=== PATIENT | female | born 1995 | race Caucasian/White ===

== ENCOUNTER 2022-01-13 08:15 | Outpatient (RCR) | payer OTHER, SELFPAY ==
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
[2022-01-01 15:27] VITALS: BMI 63.5
--- NOTE | 2022-01-02 11:03 | PC.ADMIT ---
Patient is a 26 year old female who self referred to PHP d/t struggling with depression with passive SI. Reports having thoughts that she does not want to wake up. Denied plan or intent to kill herself. Patient also has a history of cutting herself and reports she has not cut herself in a year with the exception of cutting herself a few months ago. Patient reports she has scars on her thighs, legs, and arms as a result. Patient also struggling with symptoms of PTSD and anxiety. Patient stated she recently moved back to this area to live with her sister as she stated she had a toxic relationship with her roommate while living in [place] and her sister asked her to move in with her. Reports her sister, boyfriend, and ex- are all supportive. Patient has been spending much time in bed spending up to 20 hours in bed. Patient reports a history of inpatient hospitalizations. Reports last hospitalized in 2017. Patient also stated history of overdosing on her medications at the end of 2018 and did not tell anyone. Stated that was a stupid thing to do and felt horrible for 4 days as a result. Stated she would never going to do that again. Reports she gave her sister her medications to hold on to as a precaution thus she does not have access to them. Patient denied thoughts or plan to overdose on her medications. Patient is alert and oriented x4. calm and cooperative. Presents with depressed mood and affect. Medications reconciled with patient and patient's pharmacy. She does not have a current script for Topomax-uses for migraines, last filled 08/15/22. Patient also has not been taking Metformin for PCOS on a consistent basis. She does have a pill organizer. Educated patient on ways to remember to take her medications.
--- NOTE | 2022-01-02 15:42 | PC.NURSE ---
Case opened in treatment team.
--- NOTE | 2022-01-06 15:26 | P.PNPSP_ITS ---
Subjective Subjective Date of Service: 01/06/22 Reason For Visit: PTSD,DPD,bipolar,anxiety,depression Guardianship: No Medical Problems Affecting Mental Status: No Interim History: States I'm very tired, I din't sleep well last night . Continues with dysphoric mood. Reports feeling frustrated. Intermittent in SI, states ?it comes and goes ?. No intent or plan, no safety concern at this time. Medication Compliance: Yes Side effects from medications: No Attending Groups: Yes Review of Systems Acute medical concerns: No Medical Review of Systems: unchanged Review of Systems Review of Systems Yes all other systems are reviewed and are negative Constitutional: Reports no additional constitutional complaints Mental Status Exam Mental Status Exam Narrative: Well-developed, overweight female, in NAD. Appears stated age. Patient Appearance: Fatigued and Appropriate Patient Orientation: Person, Place, Time and Situation Level of Consciousness: Awake, Appropriate and Alert Patient Behavior: Appropriate, Cooperative and Good Eye Contact Mood Description: Depressed, Anxious and Labile Affect Description: Depressed and Anxious Patient Cognition Impaired: No Ability to Follow Directions: Good Speech Pattern: Clear, Appropriate and Coherent Memory Description: Intact Hallucinations: None Delusions: Not Present Perceptual Disturbances: Depersonalization and Derealization Thought Process: Intact Thought Content: positive for Intact and positive for Suicidal Ideation (Passive, no intent/plan) Depressive Symptoms: Increased Anxiety, Diff. Making Decisions, Increased Irritability, Difficulty Sleeping, Loss of Int. in Activity, Feelings of Worthlessness, Hopelessness, Isolating-Friends/Family, Unhappiness, Increased Fatigue, Thoughts of /Suicide and Low Self Esteem Judgement: Fair Diagnostics Vital Signs (24Hr): BMI result Body Mass Index 63.5 Assessment & Plan Assessment & Plan (1) Bipolar disorder current episode depressed: Status: Acute Code(s): F31.30 - Bipolar disorder, current episode depressed, mild or moderate severity, unspecified Assessment and Plan: Continues with dysphoric mood. Describes current depression as a hole, I keep going down, but I can see light . Reports feeling frustrated, although feels not as quick to anger. Was arguing with boyfriend over weekend. Reports poor sleep. Intermittent in SI, states ?it comes and goes ?. No intent or plan, no safety concern at this time. Not sure if she wants to continue in [facility], says she has difficulty with group settings. Discussed adding Wellbutrin for depression sx. Does not want it. Says lithium has worked well in past, with Latuda. Discussed adding a low dose lithium for one week, and then reassess. She was agreeable to this. Discussed holding off on Latuda at this time, as she takes quetiapine. She was in agreement with this. (2) LORI (generalized anxiety disorder): Status: Acute Code(s): F41.1 - Generalized anxiety disorder (3) PTSD (post-traumatic stress disorder): Status: Acute Code(s): F43.10 - Post-traumatic stress disorder, unspecified Assessment and Plan: Reports feeling triggered in groups. (4) Borderline personality disorder: Status: Acute Code(s): F60.3 - Borderline personality disorder Plan 1. Continue with current [facility] plan of care. 2. Start lithium 150mg daily. 3. labs ordered: chem profile, TSH, T4. 4. F/u as per protocol. Patient educated on: diagnosis, medication risk/benefits and therapeutic strategies Informed Consent: understands Reason for contiued partial hosp. stay Substantial Risk for: harm to self, inability to function, rapid decompensation and med/psych decompensation Certification I certify that partial hospital treatment is medically necessary due to the symptoms and problems resulting from the patient's mental illness and the failure to treat the patient at the partial hospital level of care would likely result in the patient requiring inpatient psychiatric care which could not be prevented at a less intensive level of care. I spent minutes with the patient and/or on the patient floor today, greater than?50% of which was spent counseling/coordinating care. Discharge Plan Discharge Attending provider: Russ Barnes Medications: New hydroxyzine HCl 50 mg tablet 50 mg PO TID PRN (Reason: anxiety) 14 Days Qty: 42 0RF quetiapine 100 mg tablet 100 mg PO BEDTIME 14 Days Qty: 14 0RF lithium carbonate 150 mg capsule 150 mg PO DAILY Qty: 7 0RF No Action metformin 500 mg Tablet 500 mg PO DAILY 0RF Label Comments: Forgets to take, took few weeks ago. Educated patient on tips to remember to take medications. Rx Instructions: Take in the evening. clonidine HCl 0.1 mg Tablet 0.1 mg PO BID PRN (Reason: Anxiety) 0RF Label Comments: patient stated she takes 2 tabs at HS for sleep PRN oxcarbazepine [Trileptal] 300 mg Tablet 900 mg PO BEDTIME 0RF Label Comments: Patient was taking 1 tab in the am and 2 tabs in the afternoon however change d to bedtime as it was making her too drowsy during the day. PHP prescriber Eileen ENAMEL SHADER aware. Telehealth Telehealth Location of provider rendering services: practice address Location of patient: address on file Patient Identification confirmed using: Name, : Yes Telehealth method: video Patient verbally consented to treatment: Yes Patient verbally consented to billing insurance company: Yes Patient informed of any privacy concerns related to visit: Yes Minutes spent on Phone/Video with Pt.: 20
--- NOTE | 2022-01-06 16:55 | PC.NURSE ---
I called and spoke with pt after she disclosed feeling uncomfortable in groups to the med provider. She said she is not a group person , and that there are 2 women in the group who resemble her mother and stepmother, and that she has noticed feeling anxious when they respond to her. We discussed options of coping with this, and I asked if she wants to continue the PHP. She does want to continue, and has noticed some improvement since starting (less isolated, more social, less sad overall).
--- NOTE | 2022-01-07 14:57 | PC.NURSE ---
I called and spoke to pt. as planned per yesterday's conversation. Reviewed treatment plan in more detail, as we weren't able to complete this yesterday. She said she is in need of a more local therapist and med provider, and cannot afford to see the one she is working with now, who doesn't take her insurance. We discussed options and pt decided on [facility]. We set a tentative discharge date for 01/17/22.
--- NOTE | 2022-01-08 15:41 | PC.NURSE ---
Case opened in treatment team.
--- NOTE | 2022-01-13 10:01 | HO.PHPPROGNO ---
Subjective Subjective Date of Service: 01/13/22 Reason For Visit: PTSD,DPD,bipolar,anxiety,depression Guardianship: No Medical Problems Affecting Mental Status: No Interim History: Feeling overwhelmed with size of group today. Reports Positive affect with lithium, reports improved overall mood. Had self lowered her dose of Trileptal to 600 mg at bedtime, reports this dose is working well for her. Not utilizing hydroxyzine as much, states she has not needed it now that she is taking the lithium. no SI reported, no safety concerns. Medication Compliance: Yes Side effects from medications: No Attending Groups: Yes Review of Systems Acute medical concerns: No Medical Review of Systems: unchanged Review of Systems Review of Systems Yes all other systems are reviewed and are negative Constitutional: Reports no additional constitutional complaints Mental Status Exam Mental Status Exam Narrative: NAD. No active SI/HI/SIB, no AH/VH, no safety concerns. Patient Appearance: Fatigued and Appropriate Patient Orientation: Person, Place, Time and Situation Level of Consciousness: Awake, Appropriate and Alert Patient Behavior: Appropriate, Cooperative and Good Eye Contact Mood Description: Appropriate Affect Description: Flat Patient Cognition Impaired: No Ability to Follow Directions: Good Speech Pattern: Clear, Appropriate and Coherent Memory Description: Intact Hallucinations: None Delusions: Not Present Perceptual Disturbances: Depersonalization Thought Process: Intact Thought Content: positive for Intact and positive for Suicidal Ideation (ongoing passive, no intent/plan. ) Depressive Symptoms: Increased Anxiety, Diff. Making Decisions, Difficulty Sleeping, Loss of Int. in Activity, Unhappiness, Increased Fatigue, Thoughts of /Suicide and Low Self Esteem Judgement: Fair Diagnostics Vital Signs (24Hr): BMI result Body Mass Index 63.5 Assessment & Plan Assessment & Plan (1) Bipolar disorder current episode depressed: Status: Acute Code(s): F31.30 - Bipolar disorder, current episode depressed, mild or moderate severity, unspecified Assessment and Plan: Reports positive affect with lithium. Wishes to remain on current dose. Continues with passive SI, no intent or plan, no active SI/HI/SIB. Patient had reduced her dose of Trileptal from 900 mg daily to 600 mg, wishes to remain on the lower dose. (2) LORI (generalized anxiety disorder): Status: Acute Code(s): F41.1 - Generalized anxiety disorder Assessment and Plan: Patient has not felt need to utilize p.r.n. hydroxyzine as much, since starting the lithium. Overall feeling less anxious. (3) PTSD (post-traumatic stress disorder): Status: Acute Code(s): F43.10 - Post-traumatic stress disorder, unspecified Assessment and Plan: Continues to find Seroquel 100 mg at bedtime helpful. (4) Borderline personality disorder: Status: Acute Code(s): F60.3 - Borderline personality disorder Assessment and Plan: Feeling overwhelmed with size of group today, does not wish to return to group this morning. Requests a phone call from staff. Plan 1. Continue lithium 150 mg daily. 2. Continue Trileptal 600 mg at bedtime. 3. Continue all other medications as prescribed. 4. Follow-up as per protocol. Patient educated on: diagnosis, medication risk/benefits and therapeutic strategies Informed Consent: understands Reason for contiued partial hosp. stay Substantial Risk for: inability to function and med/psych decompensation Certification I certify that partial hospital treatment is medically necessary due to the symptoms and problems resulting from the patient's mental illness and the failure to treat the patient at the partial hospital level of care would likely result in the patient requiring inpatient psychiatric care which could not be prevented at a less intensive level of care. I spent minutes with the patient and/or on the patient floor today, greater than?50% of which was spent counseling/coordinating care. Discharge Plan Discharge Attending provider: Russ Barnes Medications: New hydroxyzine HCl 50 mg tablet 50 mg PO TID PRN (Reason: anxiety) 14 Days Qty: 42 0RF quetiapine 100 mg tablet 100 mg PO BEDTIME 14 Days Qty: 14 0RF lithium carbonate 150 mg capsule 150 mg PO DAILY 30 Days Qty: 30 0RF oxcarbazepine [Trileptal] 600 mg tablet 600 mg PO DAILY 30 Days Qty: 30 0RF Rx Instructions: take one tab daily at bedtime Discontinued oxcarbazepine [Trileptal] 300 mg Tablet 900 mg PO BEDTIME 0RF Label Comments: Patient was taking 1 tab in the am and 2 tabs in the afternoon however changed to bedtime as it was making her too drowsy during the day. PHP prescriber Eileen COLLINS aware. No Action metformin 500 mg Tablet 500 mg PO DAILY 0RF Label Comments: Forgets to take, took few weeks ago. Educated patient on tips to remember to take medications. Rx Instructions: Take in the evening. clonidine HCl 0.1 mg Tablet 0.1 mg PO BID PRN (Reason: Anxiety) 0RF Label Comments: patient stated she takes 2 tabs at HS for sleep PRN Telehealth Telehealth Location of provider rendering services: practice address Location of patient: address on file Patient Identification confirmed using: Name, : Yes Telehealth method: video Patient verbally consented to treatment: Yes Patient verbally consented to billing insurance company: Yes Patient informed of any privacy concerns related to visit: Yes Minutes spent on Phone/Video with Pt.: 15
--- NOTE | 2022-01-14 09:20 | PC.NURSE ---
I called pt after she didn't show to the community meeting. I woke her up- she said she overslept and said she has a very bad migraine and can't attend group today. I let her know that I have received intake times and dates for [facility]. She asked me to call her later in the day and I agreed.
--- NOTE | 2022-01-14 15:30 | PC.NURSE ---
I called and spoke to pt. She shared that she feels a bit better regarding her migraine. She also shared that she has decided not to return to the group program. She said she has gotten a lot out of groups, and feels more stable over all. 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 She said the groups feel too big and that she has a lot of social anxiety. I informed her of intake appts and of follow-up med appt given at [facility]. PHQ-9 was conducted.
== END 2022-01-13 23:59 | disposition home or self-care (01) ==
LOC: HO.PHPA 08:15
PROVIDERS: Visit Provider Psychiatry & Neurology Psychiatry
DX: F31.30 Bipolar disorder, current episode depressed, mild or moderate severity, unspecified (principal); F41.1 Generalized anxiety disorder; F43.10 Post-traumatic stress disorder, unspecified; F60.3 Borderline personality disorder; Z79.899 Other long term (current) drug therapy
CPT/HCPCS: 90791; 90853

== ENCOUNTER 2022-04-16 09:23 | Outpatient (REF) | payer OTHER, SELFPAY ==
[2022-04-16 11:27] LABS: Estimated Glomerular Filt Rate > 60
[2022-04-16 11:32] LABS: Lithium < 0.04 mmol/L (0.60-1.20)
[2022-04-16 11:52] LABS: Thyroid Stimulating Hormone 3.04 uIU/mL (0.32-4.0)
== END 2022-04-16 09:24 | disposition home or self-care (01) ==
LOC: HO.LAB 09:23
PROVIDERS: PCP Student in an Organized Health Care Education/Training Program; Visit Provider Psychiatry & Neurology Psychiatry
DX: Z79.899 Other long term (current) drug therapy (principal)
CPT/HCPCS: 36415; 80178; 82565; 84443

== ENCOUNTER 2022-11-06 14:32 | Emergency (ER) | payer OTHER, SELFPAY ==
[2022-11-06 15:06] VITALS: BP 156/100; PULSE 73; RESP 16; TEMP 36.2; O2SAT 97; BMI 69.5
--- NOTE | 2022-11-06 15:06 | ED.GENADULT ---
HPI - General Adult General Chief complaint: General Medical <Radha Figueroa CNP - Last Filed: 11/06/22 15:13> Stated complaint: HBP <Radha Figueroa CNP - Last Filed: 11/06/22 15:13> Time Seen by Provider: 11/06/22 19:05 <Radha Figueroa CNP - Last Filed: 11/06/22 15:13> Source: patient <Flex Kyle MD - Last Filed: 11/07/22 01:42> Mode of arrival: ambulatory <Flex Kyle MD - Last Filed: 11/07/22 01:42> Limitations: no limitations <Flex Kyle MD - Last Filed: 11/07/22 01:42> History of Present Illness HPI narrative: Patient history of bipolar disorder PTSD borderline personality disorder nos hypertension the past but noticed blood pressure on the higher side last night blood pressure was 187/113 family history of hypertension present on arrival patient's blood pressure was 156/100 repeat blood pressure was 147/93. Patient denied any leg swelling has gained about 20 lb in last 1 month stenosis in the night but no history of sleep apnea no chest pain no headache no nausea or vomiting patient take clonidine 0.2 mg for insomnia <Flex Kyle MD - Last Filed: 11/07/22 01:42> Related Data Home medications: Home Medications Medication Instructions Recorded Confirmed clonidine HCl 0.1 mg tablet 0.1 mg PO BID PRN Anxiety 01/01/22 01/01/22 metformin 500 mg tablet 500 mg PO DAILY 01/01/22 01/01/22 Previous Rx's Medication Instructions Recorded hydroxyzine HCl 50 mg tablet 50 mg PO TID PRN anxiety #42 tabs 02/12/22 lithium carbonate 150 mg capsule 150 mg PO DAILY 30 days #30 caps 02/12/22 oxcarbazepine 600 mg tablet 600 mg PO .daily at bedtime 30 02/12/22 days #30 tabs quetiapine 100 mg tablet 100 mg PO BEDTIME 30 days #30 tabs 02/12/22 hydrochlorothiazide 25 mg tablet 25 mg PO QAM #30 tabs 11/06/22 <Radha Figueroa CNP - Last Filed: 11/06/22 15:13> Allergies/adverse reactions: Allergies Allergy/AdvReac Type Severity Reaction Status Date / Time latex [LATEX] Allergy Unknown RASH Verified 01/01/22 15:43 spinach [SPINACH] Allergy Unknown RASH Verified 01/01/22 15:43 <Radha Figueroa CNP - Last Filed: 11/06/22 15:13> Review of Systems Review of Systems: Constitutional : No Weight loss, No Fever, No Chills ENT/Mouth : No sore throat, No Rhinorrhea Eyes: No Eye Pain, No Swelling Cardiovascular : No Chest Pain, no palpitations Respiratory : No Cough, No Sputum, no shortness of breath Gastrointestinal : no Nausea, No Vomiting, No Diarrhea, No abdominal Pain, no black stools Genitourinary : No Dysuria, No Urinary Frequency Musculoskeletal : No joint pain, No Myalgias, No Joint Swelling Skin : No Skin Lesions, No rash Neuro : No Weakness, No Numbness, No Dizziness, No Headache Psych : No Anxiety/Panic, No Depression Heme/Lymph: No Bruising, No Lymphadenopathy Endocrine : No Polyuria, No Polydipsia All other systems reviewed and are negative <Flex Kyle MD - Last Filed: 11/07/22 01:42> Yes all other systems are reviewed and are negative <Flex Kyle MD - Last Filed: 11/07/22 01:42> [facility] Past Medical History Medical History: Medical History Asthma Hyperlipidemia PCOS (polycystic ovarian syndrome) Sciatica <Radha Figueroa CNP - Last Filed: 11/06/22 15:13> Social History Social History: Social History Household Members: Significant Other and Other Household Members Other:: Sister Patient Tobacco Use Status: Current everyday Tobacco user Tobacco use type: Smokeless Tobacco Advance Directives: No <Radha Figueroa CNP - Last Filed: 11/06/22 15:13> Physical Exam ED Vital Signs: Vital Signs - 24 hr 11/06/22 15:06 11/06/22 18:30 11/06/22 19:07 Temperature 97.2 F Pulse Rate 73 84 82 Respiratory Rate 16 18 20 Blood Pressure 156/100 H 133/77 147/93 H Pulse Oximetry 97 99 100 Oxygen Delivery Method Room Air Room Air Room Air BMI result Body Mass Index 69.5 <Radha Figueroa CNP - Last Filed: 11/06/22 15:13> Vital Signs - 24 hr 11/06/22 15:06 11/06/22 18:30 11/06/22 19:07 Temperature 97.2 F Pulse Rate 73 84 82 Respiratory Rate 16 18 20 Blood Pressure 156/100 H 133/77 147/93 H Pulse Oximetry 97 99 100 Oxygen Delivery Method Room Air Room Air Room Air BMI result Body Mass Index 69.5 <Flex Kyle MD - Last Filed: 11/07/22 01:42> Appearance: Alert. Oriented X3. No acute distress. Obese overweight Eyes: PERRLA, No Nystagmus ENT: Pharynx normal. Oral Mucosa moist Neck: Normal inspection. Neck supple. CVS: Normal heart rate and rhythm. Pulses normal. Respiratory: No respiratory distress. Equal air entry bilateral, no wheezing/rales/rhonchi Abdomen: Soft and nontender. Bowel sounds are present, no mass palpable, no CVA tenderness Skin: Skin warm and dry. Normal skin color. Normal skin turgor. Extremities: No lower extremity edema. No calf tenderness Neuro: Oriented X 3. No motor deficit. No sensory deficit.No cerebellar signs , cranial nerves II-XII intact <Flex Kyle MD - Last Filed: 11/07/22 01:42> Course Course Course Narrative: This is an RME: Additional HPI, ROS, PE not included below will be deferred to primary provider. Patient is a 27-year-old female who presents emergency department for evaluation of hypertension. States past few visits to PCP office, has had elevated blood pressure readings over past 6 months, not on antihypertensives. Home recordings of 187/113 at 0300, this morning 150/90. Currently reports tunnel vision everything gets wavy since 0300. Endorses frequent migraines, intermittent dizziness/ lightheadedness, shortness of breath on exertion that does not feel like her asthma, LE swelling. Denies chest pain. Plan: labs, EKG, urinalysis, hCG <Radha Figueroa CNP - Last Filed: 11/06/22 15:13> Medical Decision Making Medical Decision Making [facility] Narrative: Patient with borderline hypertension repeat blood pressure was 122/64. Will give small dose of hydrochlorothiazide for better blood pressure control and overall body swelling advised to follow with PCP and check blood pressure daily <Flex Kyle MD - Last Filed: 11/07/22 01:42> Lab Data [facility] Lab Attestation statement: I reviewed the patient's lab results. <Flex Kyle MD - Last Filed: 11/07/22 01:42> Result Diagrams: 11/06/22 16:15 11/06/22 16:15 <Radha Figueroa CNP - Last Filed: 11/06/22 15:13> Labs: Lab Results 11/06/22 11/06/22 11/06/22 Range/Units 16:15 16:15 16:15 WBC 9.0 (4.8-10.8) X10*3/uL RBC 4.73 (4.20-5.50) X10*6/uL Hgb 13.1 (12.0-16.0) g/dl Hct 40.9 (37.0-47.0) % MCV 86.5 (80.0-98.0) fL MCH 27.7 (27.0-33.0) pg MCHC 32.0 (31.0-35.0) g/dl RDW 12.6 (11.0-16.0) % Plt Count 286 (160-400) X10*3/uL MPV 9.3 L (9.4-12.3) fL Immature Gran % (Auto) 0.6 H (0.0-0.4) % Neut % (Auto) 59.0 (45-73) % Lymph % (Auto) 30.1 (20-40) % Daniels % (Auto) 5.8 (2-11) % Eos % (Auto) 3.8 (0-4) % Baso % (Auto) 0.7 (0-2) % Lymph # (Auto) 2.7 (1.2-4.9) X10*3/uL Daniels # (Auto) 0.5 (0.1-1.2) X10*3/uL Eos # (Auto) 0.3 (0.0-0.4) X10*3/uL Baso # (Auto) 0.1 (0.0-0.2) X10*3/uL Abs Immat Gran (auto) 0.05 H (0.00-0.03) X10*3/uL Absolute Neuts (auto) 5.3 (2.0-8.3) x10*3/uL Absolute Nucleated RBC 0.000 (0.0-0.012) X10*3/uL Nucleated RBC % (auto) 0.0 (0.0-0.2) /100WBC Sodium 141 (135-145) mmol/L Potassium 4.3 (3.3-5.1) mmol/L Chloride 106 (96-108) mmol/L Carbon Dioxide 22 (22-29) mmol/L Anion Gap 17 (12-20) BUN 12 (9-16) mg/dL Creatinine 0.67 (0.5-1.4) mg/dL Estim Creat Clear Calc 259.3 Estimated GFR > 60 Random Glucose 83 (60-115) mg/dL Calcium 9.5 (8.4-10.2) mg/dL Total Bilirubin 0.6 (0.0-1.0) mg/dL AST 15 (5-31) U/L ALT 23 (0-31) U/L Alkaline Phosphatase 78 (39-117) U/L Troponin I High Sens < 3.5 (<3.5-17.0) ng/L B-Natriuretic Peptide (<100) pg/mL Total Protein 6.8 (6.5-8.0) g/dL Albumin 4.2 (3.5-5.0) g/dL Urine Color Urine Appearance Urine pH (5.0-9.0) Ur Specific [place] (1.005-1.025) Urine Protein (Neg-Trace) mg/dL Urine Glucose (UA) (Negative) mg/dL Urine Ketones (Negative) mg/dL Urine Blood (Negative) Urine Nitrite (Negative) Ur Leukocyte Esterase (Negative) Urine Test (NEGATIVE) COVID-19 (ELOY) (Negative) COVID-19 Clin Com 11/06/22 11/06/22 11/06/22 Range/Units 16:15 16:15 16:15 WBC (4.8-10.8) X10*3/uL RBC (4.20-5.50) X10*6/uL Hgb (12.0-16.0) g/dl Hct (37.0-47.0) % MCV (80.0-98.0) fL MCH (27.0-33.0) pg MCHC (31.0-35.0) g/dl RDW (11.0-16.0) % Plt Count (160-400) X10*3/uL MPV (9.4-12.3) fL Immature Gran % (Auto) (0.0-0.4) % Neut % (Auto) (45-73) % Lymph % (Auto) (20-40) % Daniels % (Auto) (2-11) % Eos % (Auto) (0-4) % Baso % (Auto) (0-2) % Lymph # (Auto) (1.2-4.9) X10*3/uL Daniels # (Auto) (0.1-1.2) X10*3/uL Eos # (Auto) (0.0-0.4) X10*3/uL Baso # (Auto) (0.0-0.2) X10*3/uL Abs Immat Gran (auto) (0.00-0.03) X10*3/uL Absolute Neuts (auto) (2.0-8.3) x10*3/uL Absolute Nucleated RBC (0.0-0.012) X10*3/uL Nucleated RBC % (auto) (0.0-0.2) /100WBC Sodium (135-145) mmol/L Potassium (3.3-5.1) mmol/L Chloride (96-108) mmol/L Carbon Dioxide (22-29) mmol/L Anion Gap (12-20) BUN (9-16) mg/dL Creatinine (0.5-1.4) mg/dL Estim Creat Clear Calc Estimated GFR Random Glucose (60-115) mg/dL Calcium (8.4-10.2) mg/dL Total Bilirubin (0.0-1.0) mg/dL AST (5-31) U/L ALT (0-31) U/L Alkaline Phosphatase (39-117) U/L Troponin I High Sens (<3.5-17.0) ng/L B-Natriuretic Peptide < 10 (<100) pg/mL Total Protein (6.5-8.0) g/dL Albumin (3.5-5.0) g/dL Urine Color Yellow Urine Appearance Clear Urine pH 6.0 (5.0-9.0) Ur Specific [place] 1.025 (1.005-1.025) Urine Protein Negative (Neg-Trace) mg/dL Urine Glucose (UA) Negative (Negative) mg/dL Urine Ketones Negative (Negative) mg/dL Urine Blood Negative (Negative) Urine Nitrite Negative (Negative) Ur Leukocyte Esterase Negative (Negative) Urine Test (NEGATIVE) COVID-19 (ELOY) Negative (Negative) COVID-19 Clin Com See Note 11/06/22 Range/Units 16:15 WBC (4.8-10.8) X10*3/uL RBC (4.20-5.50) X10*6/uL Hgb (12.0-16.0) g/dl Hct (37.0-47.0) % MCV (80.0-98.0) fL MCH (27.0-33.0) pg MCHC (31.0-35.0) g/dl RDW (11.0-16.0) % Plt Count (160-400) X10*3/uL MPV (9.4-12.3) fL Immature Gran % (Auto) (0.0-0.4) % Neut % (Auto) (45-73) % Lymph % (Auto) (20-40) % Daniels % (Auto) (2-11) % Eos % (Auto) (0-4) % Baso % (Auto) (0-2) % Lymph # (Auto) (1.2-4.9) X10*3/uL Daniels # (Auto) (0.1-1.2) X10*3/uL Eos # (Auto) (0.0-0.4) X10*3/uL Baso # (Auto) (0.0-0.2) X10*3/uL Abs Immat Gran (auto) (0.00-0.03) X10*3/uL Absolute Neuts (auto) (2.0-8.3) x10*3/uL Absolute Nucleated RBC (0.0-0.012) X10*3/uL Nucleated RBC % (auto) (0.0-0.2) /100WBC Sodium (135-145) mmol/L Potassium (3.3-5.1) mmol/L Chloride (96-108) mmol/L Carbon Dioxide (22-29) mmol/L Anion Gap (12-20) BUN (9-16) mg/dL Creatinine (0.5-1.4) mg/dL Estim Creat Clear Calc Estimated GFR Random Glucose (60-115) mg/dL Calcium (8.4-10.2) mg/dL Total Bilirubin (0.0-1.0) mg/dL AST (5-31) U/L ALT (0-31) U/L Alkaline Phosphatase (39-117) U/L Troponin I High Sens (<3.5-17.0) ng/L B-Natriuretic Peptide (<100) pg/mL Total Protein (6.5-8.0) g/dL Albumin (3.5-5.0) g/dL Urine Color Urine Appearance Urine pH (5.0-9.0) Ur Specific [place] (1.005-1.025) Urine Protein (Neg-Trace) mg/dL Urine Glucose (UA) (Negative) mg/dL Urine Ketones (Negative) mg/dL Urine Blood (Negative) Urine Nitrite (Negative) Ur Leukocyte Esterase (Negative) Urine Test NEGATIVE (NEGATIVE) COVID-19 ([facility]OY) (Negative) COVID-19 Clin Com <Radha Figueroa, [employer] HELPER - Last Filed: 11/06/22 15:13> Lab Results 11/06/22 11/06/22 11/06/22 Range/Units 16:15 16:15 16:15 WBC 9.0 (4.8-10.8) X10*3/uL RBC 4.73 (4.20-5.50) X10*6/uL Hgb 13.1 (12.0-16.0) g/dl Hct 40.9 (37.0-47.0) % MCV 86.5 (80.0-98.0) fL MCH 27.7 (27.0-33.0) pg MCHC 32.0 (31.0-35.0) g/dl RDW 12.6 (11.0-16.0) % Plt Count 286 (160-400) X10*3/uL MPV 9.3 L (9.4-12.3) fL Immature Gran % (Auto) 0.6 H (0.0-0.4) % Neut % (Auto) 59.0 (45-73) % Lymph % (Auto) 30.1 (20-40) % Daniels % (Auto) 5.8 (2-11) % Eos % (Auto) 3.8 (0-4) % Baso % (Auto) 0.7 (0-2) % Lymph # (Auto) 2.7 (1.2-4.9) X10*3/uL Daniels # (Auto) 0.5 (0.1-1.2) X10*3/uL Eos # (Auto) 0.3 (0.0-0.4) X10*3/uL Baso # (Auto) 0.1 (0.0-0.2) X10*3/uL Abs Immat Gran (auto) 0.05 H (0.00-0.03) X10*3/uL Absolute Neuts (auto) 5.3 (2.0-8.3) x10*3/uL Absolute Nucleated RBC 0.000 (0.0-0.012) X10*3/uL Nucleated RBC % (auto) 0.0 (0.0-0.2) /100WBC Sodium 141 (135-145) mmol/L Potassium 4.3 (3.3-5.1) mmol/L Chloride 106 (96-108) mmol/L Carbon Dioxide 22 (22-29) mmol/L Anion Gap 17 (12-20) BUN 12 (9-16) mg/dL Creatinine 0.67 (0.5-1.4) mg/dL Estim Creat Clear Calc 259.3 Estimated GFR > 60 Random Glucose 83 (60-115) mg/dL Calcium 9.5 (8.4-10.2) mg/dL Total Bilirubin 0.6 (0.0-1.0) mg/dL AST 15 (5-31) U/L ALT 23 (0-31) U/L Alkaline Phosphatase 78 (39-117) U/L Troponin I High Sens < 3.5 (<3.5-17.0) ng/L B-Natriuretic Peptide (<100) pg/mL Total Protein 6.8 (6.5-8.0) g/dL Albumin 4.2 (3.5-5.0) g/dL Urine Color Urine Appearance Urine pH (5.0-9.0) Ur Specific [place] (1.005-1.025) Urine Protein (Neg-Trace) mg/dL Urine Glucose (UA) (Negative) mg/dL Urine Ketones (Negative) mg/dL Urine Blood (Negative) Urine Nitrite (Negative) Ur Leukocyte Esterase (Negative) Urine Test (NEGATIVE) COVID-19 (ELOY) (Negative) COVID-19 Clin Com 11/06/22 11/06/22 11/06/22 Range/Units 16:15 16:15 16:15 WBC (4.8-10.8) X10*3/uL RBC (4.20-5.50) X10*6/uL Hgb (12.0-16.0) g/dl Hct (37.0-47.0) % MCV (80.0-98.0) fL MCH (27.0-33.0) pg MCHC (31.0-35.0) g/dl RDW (11.0-16.0) % Plt Count (160-400) X10*3/uL MPV (9.4-12.3) fL Immature Gran % (Auto) (0.0-0.4) % Neut % (Auto) (45-73) % Lymph % (Auto) (20-40) % Daniels % (Auto) (2-11) % Eos % (Auto) (0-4) % Baso % (Auto) (0-2) % Lymph # (Auto) (1.2-4.9) X10*3/uL Daniels # (Auto) (0.1-1.2) X10*3/uL Eos # (Auto) (0.0-0.4) X10*3/uL Baso # (Auto) (0.0-0.2) X10*3/uL Abs Immat Gran (auto) (0.00-0.03) X10*3/uL Absolute Neuts (auto) (2.0-8.3) x10*3/uL Absolute Nucleated RBC (0.0-0.012) X10*3/uL Nucleated RBC % (auto) (0.0-0.2) /100WBC Sodium (135-145) mmol/L Potassium (3.3-5.1) mmol/L Chloride (96-108) mmol/L Carbon Dioxide (22-29) mmol/L Anion Gap (12-20) BUN (9-16) mg/dL Creatinine (0.5-1.4) mg/dL Estim Creat Clear Calc Estimated GFR Random Glucose (60-115) mg/dL Calcium (8.4-10.2) mg/dL Total Bilirubin (0.0-1.0) mg/dL AST (5-31) U/L ALT (0-31) U/L Alkaline Phosphatase (39-117) U/L Troponin I High Sens (<3.5-17.0) ng/L B-Natriuretic Peptide < 10 (<100) pg/mL Total Protein (6.5-8.0) g/dL Albumin (3.5-5.0) g/dL Urine Color Yellow Urine Appearance Clear Urine pH 6.0 (5.0-9.0) Ur Specific [place] 1.025 (1.005-1.025) Urine Protein Negative (Neg-Trace) mg/dL Urine Glucose (UA) Negative (Negative) mg/dL Urine Ketones Negative (Negative) mg/dL Urine Blood Negative (Negative) Urine Nitrite Negative (Negative) Ur Leukocyte Esterase Negative (Negative) Urine Test (NEGATIVE) COVID-19 ([facility]OY) Negative (Negative) COVID-19 Clin Com See Note 11/06/22 Range/Units 16:15 WBC (4.8-10.8) X10*3/uL RBC (4.20-5.50) X10*6/uL Hgb (12.0-16.0) g/dl Hct (37.0-47.0) % MCV (80.0-98.0) fL MCH (27.0-33.0) pg MCHC (31.0-35.0) g/dl RDW (11.0-16.0) % Plt Count (160-400) X10*3/uL MPV (9.4-12.3) fL Immature Gran % (Auto) (0.0-0.4) % Neut % (Auto) (45-73) % Lymph % (Auto) (20-40) % Daniels % (Auto) (2-11) % Eos % (Auto) (0-4) % Baso % (Auto) (0-2) % Lymph # (Auto) (1.2-4.9) X10*3/uL Daniels # (Auto) (0.1-1.2) X10*3/uL Eos # (Auto) (0.0-0.4) X10*3/uL Baso # (Auto) (0.0-0.2) X10*3/uL Abs Immat Gran (auto) (0.00-0.03) X10*3/uL Absolute Neuts (auto) (2.0-8.3) x10*3/uL Absolute Nucleated RBC (0.0-0.012) X10*3/uL Nucleated RBC % (auto) (0.0-0.2) /100WBC Sodium (135-145) mmol/L Potassium (3.3-5.1) mmol/L Chloride (96-108) mmol/L Carbon Dioxide (22-29) mmol/L Anion Gap (12-20) BUN (9-16) mg/dL Creatinine (0.5-1.4) mg/dL Estim Creat Clear Calc Estimated GFR Random Glucose (60-115) mg/dL Calcium (8.4-10.2) mg/dL Total Bilirubin (0.0-1.0) mg/dL AST (5-31) U/L ALT (0-31) U/L Alkaline Phosphatase (39-117) U/L Troponin I High Sens (<3.5-17.0) ng/L B-Natriuretic Peptide (<100) pg/mL Total Protein (6.5-8.0) g/dL Albumin (3.5-5.0) g/dL Urine Color Urine Appearance Urine pH (5.0-9.0) Ur Specific [place] (1.005-1.025) Urine Protein (Neg-Trace) mg/dL Urine Glucose (UA) (Negative) mg/dL Urine Ketones (Negative) mg/dL Urine Blood (Negative) Urine Nitrite (Negative) Ur Leukocyte Esterase (Negative) Urine Test NEGATIVE (NEGATIVE) COVID-19 ([facility]) (Negative) COVID-19 Clin Com <Flex Anwer Saroj, MD - Last Filed: 11/07/22 01:42> Discharge Plan Discharge Clinical Impression: Hypertension <Radha Figueroa CNP - Last Filed: 11/06/22 15:13> Patient Disposition: Home, Self-Care <Radha Figueroa CNP - Last Filed: 11/06/22 15:13> Instructions: Hypertension (ED) <Radha Figueroa CNP - Last Filed: 11/06/22 15:13> Additional Instructions: Work on your weight You might have sleep apnea syndrome At this time your blood pressure is borderline Start taking hydrochlorothiazide 1 tablet daily in the a.m. Follow-up with PCP Check blood pressure 2 times daily it should be less than 140/90 <Radha Figueroa CNP - Last Filed: 11/06/22 15:13> Prescriptions: New hydrochlorothiazide 25 mg tablet 25 mg PO QAM Qty: 30 0RF No Action metformin 500 mg Tablet 500 mg PO DAILY Label Comments: Forgets to take, took few weeks ago. Educated patient on tips to remember to take medications. Rx Instructions: Take in the evening. clonidine HCl 0.1 mg Tablet 0.1 mg PO BID PRN (Reason: Anxiety) Label Comments: patient stated she takes 2 tabs at HS for sleep PRN lithium carbonate 150 mg capsule 150 mg PO DAILY 30 Days Qty: 30 0RF hydroxyzine HCl 50 mg tablet 50 mg PO TID PRN (Reason: anxiety) Qty: 42 0RF oxcarbazepine 600 mg tablet 600 mg PO .daily at bedtime 30 Days Qty: 30 0RF quetiapine 100 mg tablet 100 mg PO BEDTIME 30 Days Qty: 30 0RF <Radha Figueroa CNP - Last Filed: 11/06/22 15:13> Interventions: ED Discharge Assessment Last Done: 11/06/22 20:08 <Radha Figueroa CNP - Last Filed: 11/06/22 15:13> Discharge Date/Time: 11/06/22 20:08 <Radha Figueroa CNP - Last Filed: 11/06/22 15:13>
--- NOTE | 2022-11-06 15:12 | ECG_ITS ---
Test Reason : HYPERTENTION Blood Pressure : / mmHG Vent. Rate : 078 BPM Atrial Rate : 078 BPM P-R Int : 154 ms QRS Dur : 096 ms QT Int : 374 ms P-R-T Axes : 017 024 012 degrees QTc Int : 426 ms Normal sinus rhythm Normal ECG When compared with ECG of 23-JUL-2017 22:43, No significant change was found Referred By: Radha Figueroa Electronically Signed By:PIPER ALCALA
[2022-11-06 16:29] LABS: MANUAL DIFF FLAG NO
[2022-11-06 16:32] LABS: Basophils Absolute Auto 0.1 X10*3/uL (0.0-0.2); Basophils Percent Auto 0.7 % (0-2); Eosinophils Absolute Auto 0.3 X10*3/uL (0.0-0.4); Eosinophils Percent Auto 3.8 % (0-4); Hematocrit 40.9 % (37.0-47.0); Hemoglobin 13.1 g/dl (12.0-16.0); Imm Gran Abs Auto 0.05 X10*3/uL (0.00-0.03); Imm Gran Pct Auto 0.6 % (0.0-0.4); Lymphocytes Absolute Auto 2.7 X10*3/uL (1.2-4.9); Lymphocytes Percent Auto 30.1 % (20-40); Mean Corpuscular Hemoglobin 27.7 pg (27.0-33.0); Mean Corpuscular Volume 86.5 fL (80.0-98.0); Mean Platelet Volume 9.3 fL (9.4-12.3); Monocytes Absolute Auto 0.5 X10*3/uL (0.1-1.2); Monocytes Percent Auto 5.8 % (2-11); Neutrophils Absolute Auto 5.3 x10*3/uL (2.0-8.3); Platelet Count 286 X10*3/uL (160-400); Red Blood Count 4.73 X10*6/uL (4.20-5.50); Red Cell Distribution Width 12.6 % (11.0-16.0)
[2022-11-06 16:34] LABS: Appearance Urine Clear; Color Urine Yellow; Glucose Urine UA Negative (Negative); Leukocyte Esterase Urine Negative (Negative); Nitrite Urine Negative (Negative); Specific Gravity - Urine 1.025 (1.005-1.025); Urine Blood Negative (Negative); Urine Ketones Negative (Negative); Urine Protein Negative (Neg-Trace)
[2022-11-06 16:36] LABS: UPreg QC Valid YES; Urine Pregnancy NEGATIVE (NEGATIVE)
[2022-11-06 16:48] LABS: Alanine Aminotransferase 23 U/L (0-31); Albumin Level 4.2 g/dL (3.5-5.0); Alkaline Phosphatase 78 U/L (39-117); Anion Gap 17 (12-20); Aspartate Amino Transferase 15 U/L (5-31); Bilirubin Total 0.6 mg/dL (0.0-1.0); Blood Urea Nitrogen 12 mg/dL (9-16); Calcium 9.5 mg/dL (8.4-10.2); Carbon Dioxide 22 mmol/L (22-29); Chloride 106 mmol/L (96-108); Creatinine Clr Calc Pharmacy 259.3; Estimated Glomerular Filt Rate > 60; Glucose Random 83 mg/dL (60-115); Potassium 4.3 mmol/L (3.3-5.1); Sodium 141 mmol/L (135-145); Total Protein 6.8 g/dL (6.5-8.0)
[2022-11-06 16:54] LABS: B Type Natriuretic Peptide < 10 pg/mL (<100)
[2022-11-06 17:01] LABS: COVID-19 Test Negative (Negative); IDNOW Serial# 9DB6401D; Troponin-I High Sensitivity < 3.5 ng/L (<3.5-17.0)
[2022-11-06 18:30] VITALS: BP 133/77; PULSE 84; RESP 18; O2SAT 99
[2022-11-06 19:07] VITALS: BP 147/93; PULSE 82; RESP 20; O2SAT 100
== END 2022-11-06 20:08 | disposition home or self-care (01) ==
PROVIDERS: Nurse Practitioner Family; Emergency Provider Internal Medicine; PCP Student in an Organized Health Care Education/Training Program
DX: I10 Essential (primary) hypertension (principal); R06.02 Shortness of breath; F17.210 Nicotine dependence, cigarettes, uncomplicated; Z20.822 Contact with and (suspected) exposure to COVID-19; Z20.828 Contact with and (suspected) exposure to other viral communicable diseases; Z79.899 Other long term (current) drug therapy; Z71.6 Tobacco abuse counseling
CPT/HCPCS: 36415; 80053; 81003; 81025; 83880; 84484; 85025; 87635; 93005; 99283; 99284

== ENCOUNTER 2023-10-05 10:17 | Emergency (ER) | payer MEDICAID, SELFPAY ==
[2023-10-05 10:22] VITALS: BP 149/99; PULSE 95; RESP 20; TEMP 35.9; O2SAT 97; BMI 62.9
--- NOTE | 2023-10-05 10:39 | ED.PSYCH ---
HPI - Psych General Chief Complaint: Psychiatric Symptoms Stated Complaint: Psych eval Time Seen by Provider: 10/05/23 10:36 Source: patient Mode of arrival: ambulatory Limitations: no limitations History of Present Illness HPI Narrative: Patient is a 28-year-old female with history of LORI, PTSD, Bipolar disorder, and borderline personality disorder presenting to the emergency department with complaint of increased depression, anxiety, and suicidal thoughts. States symptoms have been worsening over the past week. Had thoughts of overdosing on all of her medications while taking her medications one day. Reports multiple increased stressors recently. Denies homicidal ideation, auditory or visual hallucinations. Reports mild headache which she feels is being exacerbated by the lights in the ED. Also reports nicotine craving, states that she typically vapes constantly throughout the day. Reports history of suicide attempt by overdose years ago but states was never evaluated in a hospital during that attempt. Sees a therapist every 1-2 weeks. MD complaint: suicidal ideation, feels depressed and anxiety Onset (ago): week(s) Duration: getting worse History of same: Yes Context: significant life stressor Associated psychiatric symptoms: depression and suicidal ideation Associated symptoms: headache Treatments prior to arrival: none If self harm: admits thoughts of self harm, has plan and intentional overdose Related Data Home Medications Medication Instructions Recorded Confirmed atorvastatin 20 mg tablet 20 mg PO BEDTIME 10/05/23 10/05/23 buspirone 10 mg tablet 10 mg PO BEDTIME 10/05/23 10/05/23 cariprazine 1.5 mg capsule 1.5 mg PO BEDTIME 10/05/23 10/05/23 (Vraylar) chlorthalidone 25 mg tablet 25 mg PO DAILY 10/05/23 10/05/23 clonidine HCl 0.1 mg tablet 0.2 mg PO BEDTIME 10/05/23 10/05/23 cyanocobalamin (vitamin B-12) 1,000 mcg PO DAILY 10/05/23 10/05/23 1,000 mcg capsule liraglutide (weight loss) 3 mg/0.5 2.8 mg subcut BEDTIME 10/05/23 10/05/23 mL (18 mg/3 mL) subcut pen injector (Saxenda) lorazepam 0.5 mg tablet 0.5 mg PO DAILY PRN Anxiety 10/05/23 10/05/23 meclizine 25 mg tablet 25 mg PO TID PRN Dizziness 10/05/23 10/05/23 metformin 500 mg tablet,extended 500 mg PO DAILY 10/05/23 10/05/23 release 24 hr omeprazole 20 mg capsule,delayed 20 mg PO BID 10/05/23 10/05/23 release ondansetron HCl 4 mg tablet 4 mg PO TID PRN nausea/vomiting 10/05/23 10/05/23 pregabalin 75 mg capsule 75 mg PO BID 10/05/23 10/05/23 sucralfate 1 gram tablet 1 g PO QID 10/05/23 10/05/23 topiramate 100 mg tablet 100 mg PO BID 10/05/23 10/05/23 topiramate 50 mg tablet 50 mg PO BID 10/05/23 10/05/23 Allergies Allergy/AdvReac Type Severity Reaction Status Date / Time latex [LATEX] Allergy Unknown RASH Verified 10/05/23 10:24 spinach [SPINACH] Allergy Unknown RASH Verified 10/05/23 10:24 Review of Systems Review of Systems: As per HPI. Yes all other systems are reviewed and are negative Constitutional: Constitutional: Reports as per HPI [facility] Past Medical History Medical History Asthma Hyperlipidemia PCOS (polycystic ovarian syndrome) Sciatica Social History Social History Household Members: Significant Other and Other Household Members Other:: Sister Patient Tobacco Use Status: Current everyday Tobacco user Tobacco use type: Smokeless Tobacco Advance Directives: No Advance Directives Information Provided: No Healthcare Proxy: No Guardian: No Physical Exam Vital Signs: Vital Signs: Last Vital Signs Temp 98.8 F 10/05/23 18:21 Pulse 90 10/05/23 18:21 Resp 18 10/05/23 18:21 BP 132/76 10/05/23 18:21 Pulse Ox 97 10/05/23 18:21 O2 Del Method Room Air 10/05/23 18:21 BMI result Body Mass Index 62.9 Vital signs have been reviewed and appear to be correct. Blood pressure elevated. Heart rate normal. Respiratory rate normal. Temperature normal. Oxygen saturation normal. Const: General: cooperative and no acute distress Nutritional Appearance: obese Orientation/consciousness: oriented to person, oriented to place, oriented to time and patient oriented x3 Limitations: no limitations HEENT: Head: Yes normocephalic and Yes atraumatic Ears: external ears normal General nose exam: Normal external nose present Face and sinus: Yes face symmetric Mouth: oropharynx normal and moist mucous membranes Throat: Yes uvula midline Eyes: Pupils: Equal, round and reactive pupils present Neck: Neck: Yes normal visual inspection and Yes supple Resp: Effort & Inspection: normal respiratory effort and able to speak in complete sentences Auscultation: clear to auscultation bilaterally Cardio: Rate: regular rate Rhythm: regular rhythm Heart sounds: S1 normal heart sound present and S2 normal heart sound present GI: Palpation (GI): Soft to palpation and nontender Auscultation: normoactive bowel sounds : General: Yes no CVA tenderness Back/Spine/Pelvis: Back: no CVA tenderness Skin: General skin exam: elasticity normal and turgor normal Neuro: General: oriented to person, oriented to place, oriented to time, patient oriented x3, moves all extremities, no focal motor deficits and CN's II-XI intact bilaterally Cranial nerves: Yes Equal, round and reactive pupils present Cognition (Neuro): normal cognition Extrem: General: Yes full ROM, Yes no pedal edema and Yes no calf tenderness Psych: Appearance: grossly normal Mental Status: mental status grossly normal Speech and movement: Normal speech and movement present Affect: normal affect Attitude: cooperative Thought process: Normal thought process present Thought content: Suicidality present, no homicidality, no hallucinations and Depressive thoughts present Insight: Fair insight present (Psych) Judgement: Fair judgement present (Psych) Course Reevaluation(s) Reevaluation #1: Patient was seen by the care team and cleared for discharge with referral to respite. I discussed the patient and she reports that she is comfortable with discharge. She is provided with a work note and will be discharged. Time: 20:59 Medications Administered Discontinued Medications Generic Name Dose Route Start Last Admin Trade Name Vidal PRN Reason Stop Dose Admin Acetaminophen 975 mg 10/05/23 11:08 10/05/23 12:03 Acetaminophen 325 Mg Tablet PO 10/05/23 11:09 975 mg ONCE ONE Administration Lorazepam 2 mg 10/05/23 16:54 10/05/23 17:07 Lorazepam 1 Mg Tablet PO 10/05/23 16:55 2 mg ONCE ONE Administration Nicotine 21 mg 10/05/23 11:08 10/05/23 12:03 Nicotine 21 Mg Patch.[id number] TRANSDERMA 10/05/23 11:09 21 mg ONCE ONE Administration Medical Decision Making Medical Decision Making [facility] Narrative: Patient is a 28-year-old female with history of OLRI, PTSD, Bipolar disorder, and borderline personality disorder presenting to the emergency department with complaint of increased depression, anxiety, and suicidal thoughts. On exam patient is awake, A+Ox3, VS WNL, afebrile, normal neurological exam without focal deficits, physical exam findings as above. Given reported symptoms and physical exam findings, initial differential includes bipolar disorder, anxiety, depression, suicidal ideation. Labs unremarkable. Urinalysis notable for trace leukocytes, 1+ protein, trace bacteria, greater than 20 epithelial cells, likely contamination. Urine drug screen positive only for marijuana, no other evidence of intentional overdose. Patient medically cleared at this time for care team evaluation and placed on physician observation. Differential Diagnosis Differential Diagnoses: The differential diagnosis associated with the presentation includes As per [facility]. Admission/Observation Consideration of admission/observation: Escalation of care including admission/observation considered Lab Data [facility] Lab Attestation statement: I reviewed the patient's lab results. As per MDM. 10/05/23 12:02 10/05/23 12:02 Labs: Lab Results 10/05/23 10/05/23 Range/Units 11:51 12:02 WBC 8.9 (4.8-10.8) X10*3/uL RBC 5.07 (4.20-5.50) X10*6/uL Hgb 14.5 (12.0-16.0) g/dl Hct 43.8 (37.0-47.0) % MCV 86.4 (80.0-98.0) fL MCH 28.6 (27.0-33.0) pg MCHC 33.1 (31.0-35.0) g/dl RDW 13.1 (11.0-16.0) % Plt Count 300 (160-400) X10*3/uL MPV 9.9 (9.4-12.3) fL Immature Gran % (Auto) 0.3 (0.0-0.4) % Neut % (Auto) 65.2 (45-73) % Lymph % (Auto) 23.0 (20-40) % [place] % (Auto) 6.6 (2-11) % Eos % (Auto) 4.3 H (0-4) % Baso % (Auto) 0.6 (0-2) % Lymph # (Auto) 2.1 (1.2-4.9) X10*3/uL [place] # (Auto) 0.6 (0.1-1.2) X10*3/uL Eos # (Auto) 0.4 (0.0-0.4) X10*3/uL Baso # (Auto) 0.1 (0.0-0.2) X10*3/uL Abs Immat Gran (auto) 0.03 (0.00-0.03) X10*3/uL Absolute Neuts (auto) 5.8 (2.0-8.3) x10*3/uL Absolute Nucleated RBC 0.000 (0.0-0.012) X10*3/uL Nucleated RBC % (auto) 0.0 (0.0-0.2) /100WBC Sodium 142 (135-145) mmol/L Potassium 3.3 (3.3-5.1) mmol/L Chloride 110 H (96-108) mmol/L Carbon Dioxide 21 L (22-29) mmol/L Anion Gap 14 (12-20) BUN 11 (9-16) mg/dL Creatinine 0.87 (0.5-1.4) mg/dL Estim Creat Clear Calc 190.5 Estimated GFR > 60 Random Glucose 92 (60-115) mg/dL Calcium 9.9 (8.4-10.2) mg/dL Total Bilirubin 0.5 (0.0-1.0) mg/dL AST 25 (5-31) U/L ALT 43 H (0-31) U/L Alkaline Phosphatase 78 (39-117) U/L Total Protein 7.8 (6.5-8.0) g/dL Albumin 4.4 (3.5-5.0) g/dL Urine Color Yellow Urine Appearance Turbid Urine pH >= 9.0 (5.0-9.0) Ur Specific [place] 1.025 (1.005-1.025) Urine Protein 30 (1+) H (Neg-Trace) mg/dL Urine Glucose (UA) Negative (Negative) mg/dL Urine Ketones Trace (Negative) mg/dL Urine Blood Negative (Negative) Urine Nitrite Negative (Negative) Ur Leukocyte Esterase Trace H (Negative) Urine RBC 0-2 (0-2) /HPF Urine WBC 0-5 (0-5) /HPF Ur Squamous Epith Cells >20 (0-2) /HPF Urine Bacteria Trace (None Seen) Hyaline Casts 0-2 (0-2) /LPF Urine Test NEGATIVE (NEGATIVE) Salicylates < 5.0 L (15-30) mg/dL Urine Opiates Screen Not Detected (Not Detect) Urine Fentanyl Screen Not Detected (Not Detect) Acetaminophen < 3 (<30) mcg/mL Ur Barbiturates Screen Not Detected (Not Detect) Ur Phencyclidine Scrn Not Detected (Not Detect) Ur Amphetamines Screen Not Detected (Not Detect) U Benzodiazepines Scrn Not Detected (Not Detect) Urine Cocaine Screen Not Detected (Not Detect) U Marijuana (THC) Screen POSITIVE H (Not Detect) Ethyl Alcohol < 10 mg/dL COVID-19 (ELOY) Negative (Negative) COVID-19 Clin Com See Note External Record Review External record reviewed: Inpatient record, Office record and Outpatient record Discharge Plan Discharge Clinical Impression: Suicidal ideation, Depression, Bipolar disorder Patient Disposition: Home, Self-Care Instructions: Suicide Prevention (ED) Prescriptions: No Action clonidine HCl 0.1 mg tablet 0.2 mg PO BEDTIME atorvastatin 20 mg tablet 20 mg PO BEDTIME sucralfate 1 gram tablet 1 g PO QID chlorthalidone 25 mg tablet 25 mg PO DAILY buspirone 10 mg tablet 10 mg PO BEDTIME omeprazole 20 mg capsule,delayed release(DR/EC) 20 mg PO BID topiramate 100 mg tablet 100 mg PO BID topiramate 50 mg tablet 50 mg PO BID pregabalin 75 mg capsule 75 mg PO BID Saxenda 3 mg/0.5 mL (18 mg/3 mL) pen injector 2.8 mg SUBCUT BEDTIME cyanocobalamin (vitamin B-12) 1,000 mcg capsule 1,000 mcg PO DAILY Vraylar 1.5 mg capsule 1.5 mg PO BEDTIME ondansetron HCl 4 mg tablet 4 mg PO TID PRN (Reason: nausea/vomiting) lorazepam 0.5 mg tablet 0.5 mg PO DAILY PRN (Reason: Anxiety) meclizine 25 mg tablet 25 mg PO TID PRN (Reason: Dizziness) metformin 500 mg Tablet Extended Release 24 Hr 500 mg PO DAILY Stand Alone Forms: Work/School Release Interventions: [place]-Suicide Risk Severity Scale Last Done: 10/05/23 12:30
[2023-10-05] MEDS: Nicotine 21 MG PATCH.TD24 TRANSDERMA (12:03)
[2023-10-05] MEDS: Acetaminophen 325 MG TABLET 975 MG PO (12:03)
[2023-10-05 12:08] LABS: MANUAL DIFF FLAG NO
[2023-10-05 12:09] LABS: Basophils Absolute Auto 0.1 X10*3/uL (0.0-0.2); Basophils Percent Auto 0.6 % (0-2); Eosinophils Absolute Auto 0.4 X10*3/uL (0.0-0.4); Eosinophils Percent Auto 4.3 % (0-4); Hematocrit 43.8 % (37.0-47.0); Hemoglobin 14.5 g/dl (12.0-16.0); Imm Gran Abs Auto 0.03 X10*3/uL (0.00-0.03); Imm Gran Pct Auto 0.3 % (0.0-0.4); Lymphocytes Absolute Auto 2.1 X10*3/uL (1.2-4.9); Mean Corpuscular HGB Conc 33.1 g/dl (31.0-35.0); Mean Corpuscular Hemoglobin 28.6 pg (27.0-33.0); Mean Corpuscular Volume 86.4 fL (80.0-98.0); Mean Platelet Volume 9.9 fL (9.4-12.3); Monocytes Absolute Auto 0.6 X10*3/uL (0.1-1.2); Monocytes Percent Auto 6.6 % (2-11); Neutrophils Absolute Auto 5.8 x10*3/uL (2.0-8.3); Neutrophils Percent Auto 65.2 % (45-73); Platelet Count 300 X10*3/uL (160-400); Red Blood Count 5.07 X10*6/uL (4.20-5.50); Red Cell Distribution Width 13.1 % (11.0-16.0); White Blood Count 8.9 X10*3/uL (4.8-10.8)
[2023-10-05 12:13] LABS: Appearance Urine Turbid; Color Urine Yellow; Glucose Urine UA Negative (Negative); Leukocyte Esterase Urine Trace (Negative); Nitrite Urine Negative (Negative); PH >= 9.0 (5.0-9.0); Specific Gravity - Urine 1.025 (1.005-1.025); UMIC TRIGGER UA YES; Urine Blood Negative (Negative); Urine Ketones Trace mg/dL (Negative); Urine Protein 30 (1+) mg/dL (Neg-Trace)
[2023-10-05 12:14] LABS: UPreg QC Valid YES; Urine Pregnancy NEGATIVE (NEGATIVE)
[2023-10-05 12:21] LABS: Bacteria Urine Trace (None Seen); Hyaline Casts Urine 0-2 /LPF (0-2); RBC Urine 0-2 /HPF (0-2); Squamous Epithelial Cell Urine >20 /HPF (0-2); WBC Urine 0-5 /HPF (0-5)
[2023-10-05 12:23] LABS: Amphetamine Screen Urine Not Detected (Not Detect); Barbiturates, Urine Not Detected (Not Detect); Benzodiazepines Screen Urine Not Detected (Not Detect); Cannabinoid Screen Urine POSITIVE (Not Detect); Cocaine Screen Urine Not Detected (Not Detect); Fentanyl, urine Not Detected (Not Detect); Opiate Screen Urine Not Detected (Not Detect); Phencyclidine Screen Urine Not Detected (Not Detect)
[2023-10-05 12:28] LABS: COVID-19 Test Negative (Negative); IDNOW Serial# 152EDE1D
[2023-10-05 12:32] LABS: Acetaminophen LAB < 3 mcg/mL (<30); Alanine Aminotransferase 43 U/L (0-31); Albumin Level 4.4 g/dL (3.5-5.0); Alkaline Phosphatase 78 U/L (39-117); Anion Gap 14 (12-20); Aspartate Amino Transferase 25 U/L (5-31); Bilirubin Total 0.5 mg/dL (0.0-1.0); Blood Urea Nitrogen 11 mg/dL (9-16); Calcium 9.9 mg/dL (8.4-10.2); Carbon Dioxide 21 mmol/L (22-29); Chloride 110 mmol/L (96-108); Creatinine Clr Calc Pharmacy 190.5; Estimated Glomerular Filt Rate > 60; Ethanol < 10 mg/dL; Glucose Random 92 mg/dL (60-115); Potassium 3.3 mmol/L (3.3-5.1); Salicylate < 5.0 mg/dL (15-30); Sodium 142 mmol/L (135-145); Total Protein 7.8 g/dL (6.5-8.0)
[2023-10-05] MEDS: LORazepam 1 MG TABLET 2 MG PO (17:07)
--- NOTE | 2023-10-05 18:14 | PHA.MEDREC ---
Pharmacy Consult ? Medication Reconciliation Pharmacy has completed the medication reconciliation. Patient has written list that match claim history. Ayden PuriD
[2023-10-05 18:21] VITALS: BP 132/76; PULSE 90; RESP 18; TEMP 37.1; O2SAT 97
--- NOTE | 2023-10-07 15:52 | MHC.CARE ---
Call from patient ([phone]) this morning asking about the [facility] referral from Thursday, CARE Team reached out to [facility], they never received the referral and have no beds today. [id number] CARE Team sent [facility] referral and initiated a [facility] 3 day following up with [facility], they will reach out to her directly. Called patient back to confirm [facility] was acceptable and she agreed. [id number] Referral sent to [facility] in [place], advised patient is at home.
--- NOTE | 2023-10-07 16:11 | MHC.CARE ---
Patient accepted to [facility], [address] [facility] [address] before 6pm today. Patient updated and in agreement.
== END 2023-10-05 21:42 | disposition home or self-care (01) ==
PROVIDERS: Emergency Provider Emergency Medicine
DX: F33.1 Major depressive disorder, recurrent, moderate (principal); R45.851 Suicidal ideations; Z11.52 Encounter for screening for COVID-19; Z79.899 Other long term (current) drug therapy
CPT/HCPCS: 36415; 80053; 80143; 80179; 80307; 81001; 81025; 85025; 87635; 99284; 99285; S9485

== ENCOUNTER 2023-11-11 12:49 | Emergency (ER) | payer OTHER, SELFPAY ==
[2023-11-11 13:15] VITALS: BP 148/102; PULSE 93; RESP 16; TEMP 37; O2SAT 98; BMI 61.4
--- NOTE | 2023-11-11 16:02 | ED_ITS ---
HPI - General Adult General Chief complaint: Headache Stated complaint: Migraine Time Seen by Provider: 11/11/23 16:02 Source: patient and family (patient's fiance) Mode of arrival: ambulatory Limitations: no limitations History of Present Illness HPI narrative: Patient is a 28 year old assigned female at with a history of migraines presenting to the emergency department today with a migraine, nausea, and vomiting. Patient states that over the last 2 days she has had nausea, vomiting, and a migraine headache. Patient denies any dizziness, lightheadedness, abdominal pain, fever, chills, blurry vision, double vision, loss of vision, chest pain, difficulty breathing, shortness of breath, back pain, night sweats, pain with urination, increased urinary frequency, increased urinary urgency, blood in her urine or stool, syncope or a near syncopal episode, recent trauma or falls, bowel incontinence, bladder incontinence, bowel retention, bladder retention, or any other complaints at this time. Onset (ago): day(s) (2) Location: head Severity: mild Severity scale (1-10): 2 Quality: aching and dull Pain Consistency: constant Relieving factors: none Exacerbating factors: none Associated symptoms: nausea/vomiting Treatments prior to arrival: none Related Data Home Medications Medication Instructions Recorded Confirmed atorvastatin 20 mg tablet 20 mg PO BEDTIME 10/05/23 10/05/23 buspirone 10 mg tablet 10 mg PO BEDTIME 10/05/23 10/05/23 cariprazine 1.5 mg capsule 1.5 mg PO BEDTIME 10/05/23 10/05/23 (Vraylar) chlorthalidone 25 mg tablet 25 mg PO DAILY 10/05/23 10/05/23 clonidine HCl 0.1 mg tablet 0.2 mg PO BEDTIME 10/05/23 10/05/23 cyanocobalamin (vitamin B-12) 1,000 mcg PO DAILY 10/05/23 10/05/23 1,000 mcg capsule liraglutide (weight loss) 3 mg/0.5 2.8 mg subcut BEDTIME 10/05/23 10/05/23 mL (18 mg/3 mL) subcut pen injector (Saxenda) lorazepam 0.5 mg tablet 0.5 mg PO DAILY PRN Anxiety 10/05/23 10/05/23 meclizine 25 mg tablet 25 mg PO TID PRN Dizziness 10/05/23 10/05/23 metformin 500 mg tablet,extended 500 mg PO DAILY 10/05/23 10/05/23 release 24 hr omeprazole 20 mg capsule,delayed 20 mg PO BID 10/05/23 10/05/23 release ondansetron HCl 4 mg tablet 4 mg PO TID PRN nausea/vomiting 10/05/23 10/05/23 pregabalin 75 mg capsule 75 mg PO BID 10/05/23 10/05/23 sucralfate 1 gram tablet 1 g PO QID 10/05/23 10/05/23 topiramate 100 mg tablet 100 mg PO BID 10/05/23 10/05/23 topiramate 50 mg tablet 50 mg PO BID 10/05/23 10/05/23 Allergies Allergy/AdvReac Type Severity Reaction Status Date / Time latex [LATEX] Allergy Unknown RASH Verified 10/05/23 10:24 spinach [SPINACH] Allergy Unknown RASH Verified 10/05/23 10:24 Review of Systems 2 Constitutional: Constitutional: Reports no additional constitutional complaints, Denies chills, Denies fever(s), Reports headache(s) and Denies night sweats Eyes: Eyes: Reports no additional eye complaints, Denies blurry vision, Denies change in vision, Denies diplopia, Denies eye discharge, Denies loss of vision and Denies eye pain ENT: Denies dizziness and Reports headache(s) Cardiovascular: Cardiovascular: Reports no additional cardiovascular complaints, Denies chest pain, Denies lightheadedness, Denies Loss of Consciousness and Denies dyspnea Respiratory: Respiratory: Reports no additional respiratory complaints and Denies dyspnea Gastrointestinal: Gastrointestinal: Reports no additional gastrointestinal complaints, Denies abdominal pain, Denies melena, Denies hematochezia, Denies change in bowel habits, Denies change in stool character, Reports nausea and Reports vomiting Genitourinary: Genitourinary: Denies hematuria, Denies urinary frequency, Denies dysuria, Denies urinary incontinence, Denies urinary hesitancy and Denies urinary urgency Musculoskeletal: Musculoskeletal: Reports no additional musculoskeletal complaints, Denies numbness and Denies tingling Neurologic: Denies dizziness, Reports headache(s), Denies loss of vision, Denies numbness and Denies tingling Psychiatric: Psychiatric: Reports no additional psychiatric complaints Endocrine: Endocrine: Reports no additional endocrine complaints Hematologic/Lymphatic: Hematologic/Lymphatic: Reports no additional hematologic/lymphatic complaints Allergic/Immunologic: Allergic/Immunologic: Reports no additional allergic/immunologic complaints [facility] Past Medical History Attestation statement: The following information was validated with the patient. Source: old records reviewed and nursing notes reviewed Medical History Sciatica Hyperlipidemia Asthma PCOS (polycystic ovarian syndrome) Social History Social History Household Members: Significant Other and Other Household Members Other:: Sister Patient Tobacco Use Status: Current everyday Tobacco user Tobacco use type: Smokeless Tobacco Advance Directives: No Advance Directives Information Provided: Yes Physical Exam ED Vital Signs: Vital Signs - 24 hr 11/11/23 13:15 Temperature 98.6 F Pulse Rate 93 Respiratory Rate 16 Blood Pressure 148/102 H Pulse Oximetry 98 Oxygen Delivery Method Room Air BMI result Body Mass Index 61.4 Const General: cooperative, no acute distress, alert and awake Nutritional Appearance: well nourished Orientation/consciousness: patient oriented x3 Limitations: no limitations HENMT Head: Yes normal to inspection and Yes atraumatic Ears: hearing grossly normal bilaterally and external ears normal General nose exam: Normal external nose present, no nasal discharge noted and no epistaxis Face and sinus: Yes normal facial exam, No abrasion and No laceration Mouth: Normal oral and palatal mucosa present, no drooling and no muffled voice Eyes General: appearance normal, both eyes and all related structures Periorbital: periorbital findings normal Eyelids: Yes eyelids normal Conjunctivae: conjunctivae normal Pupils: Equal, round and reactive pupils present EOM: EOMs intact bilaterally Neck Neck: Yes normal visual inspection, Yes full ROM and Yes no lymphadenopathy Chest Chest palpation & inspection: normal inspection of the chest Resp Effort & Inspection: normal respiratory effort and able to speak in complete sentences GI Inspection: Yes normal to inspection Palpation (GI): Soft to palpation, not firm, nontender and no guarding Neuro General: patient oriented x3 and moves all extremities Cranial nerves: Yes Equal, round and reactive pupils present Cognition (Neuro): normal cognition Motor exam (neuro): 5/5 motor strength present throughout Sensory Exam: Normal double simultaneous stimulation for sensation Coordination: [id number] test normal Extrem General: Yes normal to inspection, Yes full ROM and Yes capillary refill normal Psych Appearance: grossly normal Mental Status: mental status grossly normal Affect: normal affect Attitude: cooperative Thought process: Normal thought process present Thought content: Normal thought content present Insight: Good insight present (Psych) Medications Administered Discontinued Medications Generic Name Dose Route Start Last Admin Trade Name Vidal PRN Reason Stop Dose Admin Acetaminophen/Butalbital/Caffeine 1 tab 11/11/23 18:05 11/11/23 18:11 Butalb/Acetamin/Caff 50/325/40 Tablet PO 11/11/23 18:06 1 tab ONCE ONE Administration Sodium Chloride 1,000 mls @ 999 mls/hr 11/11/23 16:30 11/11/23 18:11 Ns IV 11/11/23 17:30 Infused .Q1H1M CARLITA Infusion Ketorolac Tromethamine 15 mg 11/11/23 16:18 11/11/23 16:46 Ketorolac Tromethamine 15 Mg/Ml Vial IVPUSH 11/11/23 16:19 15 mg ONCE ONE Administration Ondansetron HCl 4 mg 11/11/23 16:18 11/11/23 16:46 Ondansetron Hcl 4 Mg/2 Ml Vial IVPUSH 11/11/23 16:19 4 mg ONCE ONE Administration Medical Decision Making Medical Decision Making [facility] Narrative: Patient is a 28 year old assigned female at with a history of migraines presenting to the emergency department today with a migraine, nausea, and vomiting. Patient's physical exam was unremarkable. Patient's blood work was unremarkable. I explained my physical exam findings as well as all test results to the patient. I answered all questions asked by the patient. Patient received IV fluids and medicines which she stated helped her symptoms significantly. I stressed the importance of the patient taking her medication as prescribed. I stressed the importance of the patient following up with her primary care provider. I stressed the importance of the patient returning to the emergency department immediately if her symptoms were to worsen or if she were to develop any dizziness, shortness of breath, difficulty breathing, chest pain, blurry vision, loss of vision, nausea, vomiting, abdominal pain, fever, chills, back pain, or any other complaints. Patient verbalized agreement and understanding with this treatment plan and discharge. Differential Diagnosis Differential Diagnoses: The differential diagnosis associated with the presentation includes Migraine Nausea Vomiting Headache COVID-19 Influenza Viral illness Admission/Observation Consideration of admission/observation: Escalation of care including admission/observation considered Patient would have been admitted to the hospital had her work up had any findings where hospital admission was appropriate and her clinical presentation warranted hospital admission. Lab Data [facility] Lab Attestation statement: I reviewed the patient's lab results. My interpretation of these results are in the [facility] Rationale portion of this note. 11/11/23 16:37 11/11/23 16:37 Labs: Lab Results 11/11/23 Range/Units 16:37 WBC 9.2 (4.8-10.8) X10*3/uL RBC 4.84 (4.20-5.50) X10*6/uL Hgb 13.7 (12.0-16.0) g/dl Hct 41.4 (37.0-47.0) % MCV 85.5 (80.0-98.0) fL MCH 28.3 (27.0-33.0) pg MCHC 33.1 (31.0-35.0) g/dl RDW 12.9 (11.0-16.0) % Plt Count 289 (160-400) X10*3/uL MPV 9.6 (9.4-12.3) fL Immature Gran % (Auto) 0.2 (0.0-0.4) % Neut % (Auto) 59.6 (45-73) % Lymph % (Auto) 30.9 (20-40) % [place] % (Auto) 5.9 (2-11) % Eos % (Auto) 3.1 (0-4) % Baso % (Auto) 0.3 (0-2) % Lymph # (Auto) 2.8 (1.2-4.9) X10*3/uL [place] # (Auto) 0.5 (0.1-1.2) X10*3/uL Eos # (Auto) 0.3 (0.0-0.4) X10*3/uL Baso # (Auto) 0.0 (0.0-0.2) X10*3/uL Abs Immat Gran (auto) 0.02 (0.00-0.03) X10*3/uL Absolute Neuts (auto) 5.5 (2.0-8.3) x10*3/uL Absolute Nucleated RBC 0.000 (0.0-0.012) X10*3/uL Nucleated RBC % (auto) 0.0 (0.0-0.2) /100WBC Sodium 142 (135-145) mmol/L Potassium 3.5 (3.3-5.1) mmol/L Chloride 110 H (96-108) mmol/L Carbon Dioxide 23 (22-29) mmol/L Anion Gap 13 (12-20) BUN 8 L (9-16) mg/dL Creatinine 0.83 (0.5-1.4) mg/dL Estim Creat Clear Calc 196.5 Estimated GFR > 60 Random Glucose 85 (60-115) mg/dL Calcium 9.6 (8.4-10.2) mg/dL Magnesium 2.0 (1.6-2.6) mg/dL Total Bilirubin 0.7 (0.0-1.0) mg/dL AST 19 (5-31) U/L ALT 33 H (0-31) U/L Alkaline Phosphatase 76 (39-117) U/L Total Protein 7.4 (6.5-8.0) g/dL Albumin 4.4 (3.5-5.0) g/dL Influenza Type A (PCR) NEGATIVE (Negative) Influenza Type B (PCR) NEGATIVE (Negative) RSV RNA Qual (PCR) NEGATIVE (Negative) SARS-CoV-2 RNA (RT-PCR) NEGATIVE (Negative) Independent Historian Clinical information obtained from an independent historian. History obtained from or confirmed by: Other (patient's fiance provided additional history and confirmed the history provided by the patient.) Discharge Plan Discharge Clinical Impression: Migraine Patient Disposition: Home, Self-Care Instructions: Migraine Headache (ED) Additional Instructions: Follow up with your primary care provider. Return to the emergency department immediately if your symptoms worsen or if you develop any dizziness, shortness of breath, difficulty breathing, chest pain, blurry vision, loss of vision, nausea, vomiting, abdominal pain, fever, chills, back pain, or any other complaints. Prescriptions: No Action clonidine HCl 0.1 mg tablet 0.2 mg PO BEDTIME atorvastatin 20 mg tablet 20 mg PO BEDTIME sucralfate 1 gram tablet 1 g PO QID chlorthalidone 25 mg tablet 25 mg PO DAILY buspirone 10 mg tablet 10 mg PO BEDTIME omeprazole 20 mg capsule,delayed release(DR/EC) 20 mg PO BID topiramate 100 mg tablet 100 mg PO BID topiramate 50 mg tablet 50 mg PO BID pregabalin 75 mg capsule 75 mg PO BID Saxenda 3 mg/0.5 mL (18 mg/3 mL) pen injector 2.8 mg SUBCUT BEDTIME cyanocobalamin (vitamin B-12) 1,000 mcg capsule 1,000 mcg PO DAILY Vraylar 1.5 mg capsule 1.5 mg PO BEDTIME ondansetron HCl 4 mg tablet 4 mg PO TID PRN (Reason: nausea/vomiting) lorazepam 0.5 mg tablet 0.5 mg PO DAILY PRN (Reason: Anxiety) meclizine 25 mg tablet 25 mg PO TID PRN (Reason: Dizziness) metformin 500 mg Tablet Extended Release 24 Hr 500 mg PO DAILY Referrals: [facility] [place] Family Medicine [Provider Group] (Call to establish and follow up with a primary care provider. If you already have a primary care provider, please follow up with them.) [facility] [place] Primary Care, [place] [Provider Group] (Call to establish and follow up with a primary care provider. If you already have a primary care provider, please follow up with them.) [facility] [place] Primary Care,[place] [Provider Group] (Call to establish and follow up with a primary care provider. If you already have a primary care provider, please follow up with them.) Stand Alone Forms: Work/School Release Discharge Date/Time: 11/11/23 18:20 Print Language: Slovenian
[2023-11-11] MEDS: 0.9 % Sodium Chloride 1,000 ML 999 ML IV (16:45)
[2023-11-11] MEDS: ondansetron HCL 4 MG/2 ML VIAL IVPUSH (16:46)
[2023-11-11] MEDS: Ketorolac Tromethamine 15 MG/ML VIAL IVPUSH (16:46)
[2023-11-11 16:51] LABS: MANUAL DIFF FLAG NO
[2023-11-11 16:52] LABS: Basophils Percent Auto 0.3 % (0-2); Eosinophils Absolute Auto 0.3 X10*3/uL (0.0-0.4); Eosinophils Percent Auto 3.1 % (0-4); Hematocrit 41.4 % (37.0-47.0); Hemoglobin 13.7 g/dl (12.0-16.0); Imm Gran Abs Auto 0.02 X10*3/uL (0.00-0.03); Imm Gran Pct Auto 0.2 % (0.0-0.4); Lymphocytes Absolute Auto 2.8 X10*3/uL (1.2-4.9); Lymphocytes Percent Auto 30.9 % (20-40); Mean Corpuscular HGB Conc 33.1 g/dl (31.0-35.0); Mean Corpuscular Hemoglobin 28.3 pg (27.0-33.0); Mean Corpuscular Volume 85.5 fL (80.0-98.0); Mean Platelet Volume 9.6 fL (9.4-12.3); Monocytes Absolute Auto 0.5 X10*3/uL (0.1-1.2); Monocytes Percent Auto 5.9 % (2-11); Neutrophils Absolute Auto 5.5 x10*3/uL (2.0-8.3); Neutrophils Percent Auto 59.6 % (45-73); Platelet Count 289 X10*3/uL (160-400); Red Blood Count 4.84 X10*6/uL (4.20-5.50); Red Cell Distribution Width 12.9 % (11.0-16.0); White Blood Count 9.2 X10*3/uL (4.8-10.8)
[2023-11-11 17:32] LABS: Influenza A PCR NEGATIVE (Negative); Influenza B PCR NEGATIVE (Negative); Resp Syncy Virus RNA Qual PCR NEGATIVE (Negative); SARS COV2 PCR INHOUSE NEGATIVE (Negative)
[2023-11-11 17:52] LABS: Alanine Aminotransferase 33 U/L (0-31); Albumin Level 4.4 g/dL (3.5-5.0); Alkaline Phosphatase 76 U/L (39-117); Anion Gap 13 (12-20); Aspartate Amino Transferase 19 U/L (5-31); Bilirubin Total 0.7 mg/dL (0.0-1.0); Blood Urea Nitrogen 8 mg/dL (9-16); Calcium 9.6 mg/dL (8.4-10.2); Carbon Dioxide 23 mmol/L (22-29); Chloride 110 mmol/L (96-108); Creatinine Clr Calc Pharmacy 196.5; Estimated Glomerular Filt Rate > 60; Glucose Random 85 mg/dL (60-115); Potassium 3.5 mmol/L (3.3-5.1); Sodium 142 mmol/L (135-145); Total Protein 7.4 g/dL (6.5-8.0)
[2023-11-11] MEDS: Butalb/Acetamin/Caff 50/325/40 TABLET 1 TAB PO (18:11)
== END 2023-11-11 18:20 | disposition home or self-care (01) ==
PROVIDERS: Physician Assistant Medical; Emergency Provider Emergency Medicine Emergency Medical Services
DX: G43.909 Migraine, unspecified, not intractable, without status migrainosus (principal); R11.2 Nausea with vomiting, unspecified; Z79.899 Other long term (current) drug therapy; Z11.52 Encounter for screening for COVID-19
CPT/HCPCS: 0241U; 80053; 83735; 85025; 96361; 96374; 96375; 99283; 99284; J1885; J2405

== ENCOUNTER 2024-03-13 03:56 | Emergency (ER) | payer OTHER, MEDICAID, SELFPAY ==
[2024-03-13 03:58] VITALS: BP 151/92; PULSE 94; RESP 19; TEMP 36.1; O2SAT 98; BMI 64.7
[2024-03-13 04:10] VITALS: BP 131/82; PULSE 93; RESP 16; TEMP 37.1; O2SAT 98
[2024-03-13 05:31] VITALS: BP 119/82; PULSE 78; RESP 16; TEMP 37.1; O2SAT 97
--- NOTE | 2024-03-13 06:18 | ED.PSYCH ---
HPI - Psych General Chief Complaint: Psychiatric Symptoms Stated Complaint: crisis? Time Seen by Provider: 03/13/24 06:14 Source: patient Mode of arrival: ambulatory Limitations: no limitations History of Present Illness ED Provider: Dr. Lydia Abrams HPI Narrative: Patient comes to the emergency room complaining of suicidal thoughts, states she wants to overdose with her medications trazodone and Ativan. Patient states that she did not attempted to hurt herself in any way or ingest any medications that she should not have very to arrival. Patient states that she has had a stressors at home, states that she would like to go to respite Related Data Home Medications ?Medication ?Instructions ?Recorded ?Confirmed atorvastatin 20 mg tablet 20 mg PO BEDTIME 10/05/23 10/05/23 buspirone 10 mg tablet 10 mg PO BEDTIME 10/05/23 10/05/23 cariprazine 1.5 mg capsule 1.5 mg PO BEDTIME 10/05/23 10/05/23 (Vraylar) chlorthalidone 25 mg tablet 25 mg PO DAILY 10/05/23 10/05/23 clonidine HCl 0.1 mg tablet 0.2 mg PO BEDTIME 10/05/23 10/05/23 cyanocobalamin (vitamin B-12) 1,000 mcg PO DAILY 10/05/23 10/05/23 1,000 mcg capsule liraglutide (weight loss) 3 mg/0.5 2.8 mg subcut BEDTIME 10/05/23 10/05/23 mL (18 mg/3 mL) subcut pen injector (Saxenda) lorazepam 0.5 mg tablet 0.5 mg PO DAILY PRN Anxiety 10/05/23 10/05/23 meclizine 25 mg tablet 25 mg PO TID PRN Dizziness 10/05/23 10/05/23 metformin 500 mg tablet,extended 500 mg PO DAILY 10/05/23 10/05/23 release 24 hr omeprazole 20 mg capsule,delayed 20 mg PO BID 10/05/23 10/05/23 release ondansetron HCl 4 mg tablet 4 mg PO TID PRN nausea/vomiting 10/05/23 10/05/23 pregabalin 75 mg capsule 75 mg PO BID 10/05/23 10/05/23 sucralfate 1 gram tablet 1 g PO QID 10/05/23 10/05/23 topiramate 100 mg tablet 100 mg PO BID 10/05/23 10/05/23 topiramate 50 mg tablet 50 mg PO BID 10/05/23 10/05/23 Allergies Allergy/AdvReac Type Severity Reaction Status Date / Time latex [LATEX] Allergy Unknown RASH Verified 03/13/24 04:01 spinach [SPINACH] Allergy Unknown RASH Verified 03/13/24 04:01 Review of Systems Review of Systems: Constitutional : No Weight loss, No Fever, No Chills, No Night Sweats, No Fatigue, No Malaise ENT/Mouth : No Hearing loss, No Ear Pain, No Nasal Congestion, No Sinus Pain, No Hoarseness, No sore throat, No Rhinorrhea, No Swallowing Difficulty Eyes: No Eye Pain, No Swelling, No Redness, No Foreign Body, No Discharge, No Vision Changes Cardiovascular : No Chest Pain, No SOB, No Dyspnea on Exertion, No Orthopnea, No Edema, No Palpitations Respiratory : No Cough, No Sputum, No Wheezing, No Smoke Exposure, No Dyspnea Gastrointestinal : No Nausea, No Vomiting, No Diarrhea, No Constipation, No abdominal Pain, No Hematochezia, No Melena Genitourinary : no irregular bleeding, No Dysuria, No Urinary Frequency, No Hematuria, No Urinary Incontinence, No Urgency, No Flank Pain, No Urinary Flow Changes, No Hesitancy Musculoskeletal : No joint pain, No Myalgias, No Joint Swelling Skin : No Skin Lesions, No rash Neuro : No Weakness, No Numbness, No Paresthesias, No Loss of Consciousness, No Dizziness, No Headache Psych : No Anxiety/Panic, bleeding of depression with suicidal thoughts, planning to overdose with her medications, no HI No Social Issues, Heme/Lymph: No Bruising, No Bleeding,No Lymphadenopathy Endocrine : No Polyuria, No Polydipsia, No Temperature Intolerance [facility] Past Medical History Medical History Sciatica Hyperlipidemia Asthma PCOS (polycystic ovarian syndrome) Social History Social History Household Members: Significant Other and Other Household Members Other:: Sister Patient Tobacco Use Status: Current everyday Tobacco user Tobacco use type: Smokeless Tobacco Advance Directives: No Advance Directives Information Provided: Yes Do you have a plan to hurt others: No Plan Physical Exam Vital Signs: Vital Signs: Last Vital Signs Temp 98.7 F 03/13/24 05:31 Pulse 78 03/13/24 05:31 Resp 16 03/13/24 05:31 BP 119/82 03/13/24 05:31 Pulse Ox 97 03/13/24 05:31 O2 Del Method Room Air 03/13/24 05:31 BMI result Body Mass Index 64.7 Const: Other: Appearance: Alert. Oriented X3. No acute distress. Eyes: Pupils equal, round and reactive to light. ENT: Pharynx normal. Neck: Normal inspection. Neck supple. No lymph nodes noted. No crepitus CVS: Normal heart rate and rhythm. Pulses normal. Normal S1 and S2 Respiratory: No respiratory distress. Breath sounds normal. No Wheezing. No rales Abdomen: Soft and nontender. No rigidity. No distention. Skin: Skin warm and dry. Normal skin color. Normal skin turgor. Extremities: No lower extremity edema. No Lacerations. No Rash Neuro: Oriented X 3. No motor deficit. No sensory deficit. Moving all extremities. No slurred speech. CN 2 through 12 grossly intact Psych: calm, cooperative, normal affect Course Course Course Narrative: -all of patient's labs pending -care team consult pending -patient is on a Section 12 -physician observation started at 06:19 Medical Decision Making Differential Diagnosis Differential Diagnoses: The differential diagnosis associated with the presentation includes (Anxiety, depression, suicidal ideation) Admission/Observation Consideration of admission/observation: Escalation of care including admission/observation considered (Patient is under a section 12, waiting to be evaluated by the care team to determine disposition. Patient requesting respite) Critical Care Time Critical Care Time Critical Care Time: Yes Total Critical Care Time: 30 Attestation: I have personally provided critical care time. Time includes review of lab data, radiology results, discussion with consultants, and monitoring for potential decompensation. Intervention performed as documented. Discharge Plan Discharge Clinical Impression: Bipolar disorder current episode depressed, Suicidal ideation Patient Disposition: Still a Patient Prescriptions: No Action clonidine HCl 0.1 mg tablet 0.2 mg PO BEDTIME atorvastatin 20 mg tablet 20 mg PO BEDTIME sucralfate 1 gram tablet 1 g PO QID chlorthalidone 25 mg tablet 25 mg PO DAILY buspirone 10 mg tablet 10 mg PO BEDTIME omeprazole 20 mg capsule,delayed release(DR/EC) 20 mg PO BID topiramate 100 mg tablet 100 mg PO BID topiramate 50 mg tablet 50 mg PO BID pregabalin 75 mg capsule 75 mg PO BID Saxenda 3 mg/0.5 mL (18 mg/3 mL) pen injector 2.8 mg SUBCUT BEDTIME cyanocobalamin (vitamin B-12) 1,000 mcg capsule 1,000 mcg PO DAILY Vraylar 1.5 mg capsule 1.5 mg PO BEDTIME ondansetron HCl 4 mg tablet 4 mg PO TID PRN (Reason: nausea/vomiting) lorazepam 0.5 mg tablet 0.5 mg PO DAILY PRN (Reason: Anxiety) meclizine 25 mg tablet 25 mg PO TID PRN (Reason: Dizziness) metformin 500 mg Tablet Extended Release 24 Hr 500 mg PO DAILY Print Language: Hungarian
[2024-03-13 06:38] LABS: MANUAL DIFF FLAG NO
[2024-03-13 06:40] LABS: Basophils Absolute Auto 0.1 X10*3/uL (0.0-0.2); Basophils Percent Auto 0.5 % (0-2); Eosinophils Absolute Auto 0.4 X10*3/uL (0.0-0.4); Eosinophils Percent Auto 4.2 % (0-4); Hematocrit 37.9 % (37.0-47.0); Hemoglobin 12.7 g/dl (12.0-16.0); Imm Gran Abs Auto 0.05 X10*3/uL (0.00-0.03); Imm Gran Pct Auto 0.5 % (0.0-0.4); Lymphocytes Percent Auto 28.5 % (20-40); Mean Corpuscular HGB Conc 33.5 g/dl (31.0-35.0); Mean Corpuscular Hemoglobin 28.7 pg (27.0-33.0); Mean Corpuscular Volume 85.6 fL (80.0-98.0); Mean Platelet Volume 9.2 fL (9.4-12.3); Monocytes Absolute Auto 0.6 X10*3/uL (0.1-1.2); Monocytes Percent Auto 6.1 % (2-11); Neutrophils Absolute Auto 6.2 x10*3/uL (2.0-8.3); Neutrophils Percent Auto 60.2 % (45-73); Platelet Count 245 X10*3/uL (160-400); Red Blood Count 4.43 X10*6/uL (4.20-5.50); Red Cell Distribution Width 13.3 % (11.0-16.0); White Blood Count 10.3 X10*3/uL (4.8-10.8)
--- NOTE | 2024-03-13 07:02 | PC.NURSE ---
Assumed care of patient at 0650, patient moved from ED 9 to 2. Significant other present at bedside. Patient reports SI without a plan at this time, calm and cooperative, help seeking. Denies other complaints
[2024-03-13 07:04] LABS: Albumin Level 3.8 g/dL (3.5-5.0); Alkaline Phosphatase 83 U/L (39-117); Anion Gap 12 (12-20); Bilirubin Total 0.4 mg/dL (0.0-1.0); Blood Urea Nitrogen 10 mg/dL (9-16); Calcium 9.2 mg/dL (8.4-10.2); Carbon Dioxide 19 mmol/L (22-29); Chloride 110 mmol/L (96-108); Creatinine Clr Calc Pharmacy 203.8; Estimated Glomerular Filt Rate > 60; Ethanol < 10 mg/dL; Glucose Random 124 mg/dL (60-115); HCG Quantitative < 2 mIU/mL; Potassium 3.4 mmol/L (3.3-5.1); Sodium 138 mmol/L (135-145); Total Protein 6.6 g/dL (6.5-8.0)
[2024-03-13 07:24] LABS: Alanine Aminotransferase 26 U/L (0-31); Aspartate Amino Transferase 19 U/L (5-31); Bilirubin Direct 0.2 mg/dL (0.0-0.5)
[2024-03-13] MEDS: metFORMIN HCl ER 500 MG TAB.ER.24H PO (09:14)
[2024-03-13] MEDS: Cyanocobalamin (Vitamin B-12) 1,000 MCG TABLET 1000 MCG PO (09:14)
[2024-03-13] MEDS: Topiramate 100 MG TABLET 200 MG PO (09:14)
[2024-03-13] MEDS: Pregabalin 75 MG CAPSULE PO (09:14)
[2024-03-13] MEDS: traZODone HCL 100 MG TABLET PO (09:14)
[2024-03-13] MEDS: Lidocaine 4 % Patch ADH..PATCH 1 PATCH TRANSDERMA (09:14)
[2024-03-13] MEDS: levoFLOXacin 500 MG TABLET PO (09:14)
[2024-03-13] MEDS: Omeprazole 20 MG CAPSULE.DR PO (09:14)
[2024-03-13] MEDS: lamoTRIgine 100 MG TABLET PO (09:14)
--- NOTE | 2024-03-13 09:25 | PC.NURSE ---
morning medications administered per OCT. Patient reporting 03/09 headache. Ibuprofen/tylenol provided. Patient also reports that she smokes a whole lot and his requesting a nicotine patch
[2024-03-13 09:27] LABS: Appearance Urine Clear; Color Urine Yellow; Glucose Urine UA Negative (Negative); Leukocyte Esterase Urine Negative (Negative); Nitrite Urine Negative (Negative); Urine Blood Negative (Negative); Urine Ketones Negative (Negative); Urine Protein Negative (Neg-Trace)
[2024-03-13] MEDS: Acetaminophen 325 MG TABLET PO (09:28)
[2024-03-13] MEDS: Ibuprofen 600 MG TABLET PO (09:28)
[2024-03-13] MEDS: Nicotine 21 MG PATCH.TD24 TRANSDERMA (09:28)
[2024-03-13 09:37] LABS: Amphetamine Screen Urine Not Detected (Not Detect); Barbiturates, Urine Not Detected (Not Detect); Benzodiazepines Screen Urine Not Detected (Not Detect); Buprenorphine Scr Not Detected (Not Detect); Cannabinoid Screen Urine POSITIVE (Not Detect); Cocaine Screen Urine Not Detected (Not Detect); Fentanyl, urine Not Detected (Not Detect); Methadone Screen, Urine Not Detected (Not Detect); Opiate Screen Urine Not Detected (Not Detect); Oxycodone Screen Urine Not Detected (Not Detect); Phencyclidine Screen Urine Not Detected (Not Detect)
--- NOTE | 2024-03-13 11:54 | PC.NURSE ---
patient sleeping, will hold off on Concerta until patient is awake
[2024-03-13 14:35] VITALS: BP 136/90; PULSE 88; RESP 14; TEMP 36.6; O2SAT 97
--- NOTE | 2024-03-13 14:38 | PC.NURSE ---
patient aware of plan of care for respite bed. Plan for patient to be d/c with fiance at 1430 for transport to respite facility. patient in agreeance with plan
== END 2024-03-13 14:39 | disposition other institution (70) ==
PROVIDERS: Emergency Provider Emergency Medicine
DX: T43.212A Poisoning by selective serotonin and norepinephrine reuptake inhibitors, intentional self-harm, initial encounter (principal); Y92.9 Unspecified place or not applicable; F33.1 Major depressive disorder, recurrent, moderate; R45.851 Suicidal ideations; F17.200 Nicotine dependence, unspecified, uncomplicated; Y92.89 Other specified places as the place of occurrence of the external cause; Z79.899 Other long term (current) drug therapy; Z51.81 Encounter for therapeutic drug level monitoring
CPT/HCPCS: 36415; 80048; 80076; 80307; 81003; 84702; 85025; 99285; S9485

== ENCOUNTER 2025-05-18 21:06 | Emergency (ER) | payer MEDICAID, SELFPAY ==
[2025-05-18 21:44] VITALS: BP 150/92; PULSE 110; RESP 20; TEMP 36.8; O2SAT 96; BMI 71.8
--- NOTE | 2025-05-18 22:22 | ED.HA ---
HPI - Headache General Chief Complaint: Headache Stated Complaint: hit headx2 05/14 c/o headache,vomiting,visual Time Seen by Provider: 05/18/25 22:34 Source: patient Limitations: no limitations History of Present Illness ED Provider: Mamta Serrano PA-C HPI Narrative: 30-year-old female with a history of morbid obesity, PCOS, migraine, hyperlipidemia, asthma, bipolar disorder, anxiety, borderline personality disorder, PTSD who presents with migraine. Patient states she has had a headache for a week. She states prior to the onset, she had been banging her head against the wall at home. The headache is right-sided and retro-orbital. Associated phonophobia, photophobia, nausea and dizziness at times. Denies SI or HI. Related Data Home Medications ?Medication ?Instructions ?Recorded ?Confirmed atorvastatin 20 mg tablet 20 mg PO BEDTIME 10/05/23 03/13/24 clonidine HCl 0.1 mg tablet 0.2 mg PO BEDTIME 10/05/23 03/13/24 cyanocobalamin (vitamin B-12) 1,000 mcg PO DAILY 10/05/23 03/13/24 1,000 mcg capsule meclizine 25 mg tablet 25 mg PO TID PRN Dizziness 10/05/23 03/13/24 metformin 500 mg tablet,extended 500 mg PO DAILY 10/05/23 03/13/24 release 24 hr omeprazole 20 mg capsule,delayed 20 mg PO BID 10/05/23 03/13/24 release pregabalin 75 mg capsule 75 mg PO BID 10/05/23 03/13/24 topiramate 100 mg tablet 200 mg PO BID 10/05/23 03/13/24 erenumab-aooe 140 mg/mL 140 mg subcut QMONTH 03/13/24 03/13/24 subcutaneous auto-injector (Aimovig Autoinjector) lamotrigine 100 mg tablet 100 mg PO DAILY 03/13/24 03/13/24 lidocaine 5 % topical patch 1 patch topical DAILY 03/13/24 03/13/24 methylphenidate HCl 18 mg 18 mg PO DAILY 03/13/24 03/13/24 tablet,extended release 24 hr (Concerta) trazodone 50 mg tablet 100 mg PO DAILY 03/13/24 03/13/24 zolmitriptan 5 mg tablet 5 mg PO DIRECTED 03/13/24 03/13/24 Allergies Allergy/AdvReac Type Severity Reaction Status Date / Time latex (LATEX) Allergy Unknown RASH Verified 05/18/25 21:51 spinach (SPINACH) Allergy Unknown RASH Verified 05/18/25 21:51 Review of Systems Review of Systems: Yes all other systems are reviewed and are negative Constitutional: Constitutional: Denies fatigue, Denies fever(s) and Reports headache(s) Eyes: Eyes: Reports photophobia ENT: Reports dizziness, Reports headache(s) and Denies neck pain Cardiovascular: Cardiovascular: Denies chest pain and Denies dyspnea Respiratory: Respiratory: Denies dyspnea Gastrointestinal: Gastrointestinal: Reports nausea and Denies vomiting Musculoskeletal: Musculoskeletal: Denies back pain and Denies neck pain Neurologic: Reports dizziness and Reports headache(s) Endocrine: Endocrine: Denies fatigue PMFSH Past Medical History Attestation statement: The following information was validated with the patient. Medical History Sciatica Hyperlipidemia Asthma PCOS (polycystic ovarian syndrome) Social History Social History Household Members: Significant Other and Other Household Members Other:: Sister Unable to assess alcohol history related to: Refusing to respond Patient Tobacco Use Status: Current everyday Tobacco user Tobacco use type: Smokeless Tobacco Smoked in Last 30 Days: Yes Substance Use Type: Marijuana Substance Use Frequency: Daily Advance Directives: No Advance Directives Information Provided: No Patient : No Physical Exam Vital Signs: Vital Signs: Last Vital Signs Temp 98.2 F 05/19/25 02:07 Pulse 76 05/19/25 02:07 Resp 21 H 05/19/25 02:07 BP 124/84 05/19/25 02:07 Pulse Ox 96 05/19/25 02:07 O2 Del Method Room Air 05/19/25 02:07 BMI result Body Mass Index 71.8 Const: Other: Alert, appears older than stated age, no sign of head trauma on exam Orientation/consciousness: patient oriented x3 Eyes: Direct Ophthalmoscopy: photophobia Resp: Effort & Inspection: normal respiratory effort Cardio: Other: Normal peripheral perfusion Skin: Other: Warm dry no rash Neuro: General: patient oriented x3, gait normal, no focal motor deficits and CN's II-XI intact bilaterally Psych: Other: Cooperative Course Course Course Narrative: 05/18 2222 Henna Reyna STEPHEN This is a rapid medical exam. Defer additional HPI, ROS and PE to primary provider. 30-year-old female with a history of mental health presents the ER with complaints of headache which she reports developed after having some head banging behaviors at home. Labs ordered by triage Normal neuro in triage. Defer imaging until exam by main provider. VSS Reevaluation(s) Reevaluation #1: Headache resolved she is eager for discharge Time: 01:41 Medications Administered Discontinued Medications Generic Name Dose Route Start Last Admin Trade Name Freq PRN Reason Stop Dose Admin Diphenhydramine HCl 25 mg 05/18/25 22:44 05/18/25 22:51 Diphenhydramine Hcl 50 Mg/Ml Vial IVPUSH 05/18/25 22:45 25 mg ONCE ONE Administration Droperidol 2.5 mg 05/18/25 22:44 05/18/25 22:52 Droperidol 5 Mg/2 Ml Vial IVPUSH 05/18/25 22:45 2.5 mg ONCE ONE Administration Sodium Chloride 500 mls @ 500 mls/hr 05/18/25 22:45 05/18/25 23:28 Ns IV 05/18/25 23:44 Infused .Q1H ONE Infusion Ketorolac Tromethamine 15 mg 05/18/25 22:44 05/18/25 22:51 Ketorolac Tromethamine 15 Mg/Ml Vial IVPUSH 05/18/25 22:45 15 mg ONCE ONE Administration Medical Decision Making Medical Decision Making MDM Narrative: 30-year-old female with a history of morbid obesity, PCOS, migraine, hyperlipidemia, asthma, bipolar disorder, anxiety, borderline personality disorder, PTSD who presents with migraine. Patient states she has had a headache for a week. She states prior to the onset, she had been banging her head against the wall at home. The headache is right-sided and retro-orbital. Associated phonophobia, photophobia, nausea and dizziness at times. Denies SI or HI. Problem: Psychiatric illness, migraine History: Per patient I have considered the following differential diagnoses: Skull fracture, intracranial hemorrhage, migraine, concussion Plan: The patient has had symptoms for a week, they are consistent with her migraines, we will give a migraine cocktail. She could have a concussion given her report of ?head banging at home?. I have no suspicion for intracranial hemorrhage, she is neurologically intact, without active vomiting, no neck pain, as overall well-appearing. Imaging not warranted given the mechanism. No indication for lab studies Differential Diagnosis Differential Diagnoses: The differential diagnosis associated with the presentation includes Seem medical decision-making Admission/Observation Consideration of admission/observation: Escalation of care including admission/observation considered Not applicable Discharge Plan Discharge Clinical Impression: Migraine Patient Disposition: Home, Self-Care Instructions: Migraine Headache (ED) Additional Instructions: You were treated for a migraine headache, it resolved prior to her discharge. Follow up with your primary care as needed. Prescriptions: No Action clonidine HCl 0.1 mg tablet 0.2 mg PO BEDTIME atorvastatin 20 mg tablet 20 mg PO BEDTIME omeprazole 20 mg capsule,delayed release(DR/EC) 20 mg PO BID topiramate 100 mg tablet 200 mg PO BID pregabalin 75 mg capsule 75 mg PO BID cyanocobalamin (vitamin B-12) 1,000 mcg capsule 1,000 mcg PO DAILY meclizine 25 mg tablet 25 mg PO TID PRN (Reason: Dizziness) metformin 500 mg Tablet Extended Release 24 Hr 500 mg PO DAILY trazodone 50 mg tablet 100 mg PO DAILY zolmitriptan 5 mg tablet 5 mg PO DIRECTED lidocaine 5 % adhesive patch,medicated 1 patch topical DAILY methylphenidate HCl [Concerta] 18 mg tablet extended release 24hr 18 mg PO DAILY lamotrigine 100 mg tablet 100 mg PO DAILY Aimovig Autoinjector 140 mg/mL auto-injector 140 mg subcut QMONTH Interventions: ED Discharge Assessment Last Done: 05/19/25 02:07 Print Language: Syriac
[2025-05-18 22:36] VITALS: BP 117/79; PULSE 97; RESP 19; TEMP 36.8; O2SAT 97
--- OUTSIDE RECORDS SUMMARY | 2025-05-18 22:57 | XMS_ITS | Encounter Summary ---
Author Organization [facility] Address [address] [place] [address] Care Team Providers Care Legislative Director Name Role Phone Kamilla Nicolas MD Primary Care Provider Emely Farmer CASH ACCOUNTANT Unavailable [phone] [facility] Unavailable U navailable Encounter Details Date Type Department Care Team (Late st Contact Info) Description 12/12/2024 Orders Only [facility] [address] [place] [phone] Kamilla Nicolas MD [address] [place] [phone] Social History Tobacco Use Types Packs/Day Years Used Date Smoking Tobacco: Some Days Cigarettes Smokeless Tobacco: Never Comments:Currently vapes frandy otine Has cut down to 60 puffs a day , was doing 150-200 /d 4-5 cigarettes daily Alcohol Use Standard Drinks/Week Comments Not Currently 0 (1 standard drink = 0.6 oz pur e alcohol) PHQ-2 Answer Date Recorded Patient Health Questionnaire-2 Score 6 08/12/2024 PHQ-9 Answer Date Recorded Patient Health Questionnaire-9 Score 24 08/12/2024 Intimate Partner Violence Answer Date R ecorded Fear of Current or Ex-Partner Not on file Emotionally Abused Not on file 10/11/2024 Physically Abused Not on file 10/11/2024 Sexually Abused Not on file 10/11/2024 Do you feel physically and e motionally safe where you currently live? Yes 10/11/2024 Social Connections Answer Date Recorded Phone Communication Patient declined 10/11/2024 Get together with friends / family Patient declcarter agustin 10/11/2024 Attend evangelical services Patient declined 10/11 Club Membership Patient declined 10/11/2024 Club Attendance Patient declined 10/11/2024 Marital Status Patient declined 10/11/2024 Financial Resource Strain Answer Date R ecorded Difficulty paying for basics Very hard 07/2025 How hard is it for you to pa y for utilities (electricity, gas, water)? Very hard 10/11/2024 Food Insecurity Answer Date Recorded Worry that food will run out Patient declined Inability to get food Patient declined Transportation Needs Answer Date Record ed Lacking transport to medical appts Patient decli agustin 10/11/2024 Lacking transport to non-medical Patient decline d 10/11/2024 Housing Stability Answer Date Recorded Unable to Pay for Housing in the Last Year Yes 08/10/2024 [address] Lived in the Last Year 3 08/10/2024 Unstable Housing in the Last Year Yes 08/10/2024 Do you have housing? Not on file 08/10/2024 Are you worried about losing your housing? Not o n file 08/10/2024 Are you worried about losing your housing? Not o n file 08/10/2024 Adolescent Education and Socialization Answer Date Recorded Getting School Help Needed Not on file 10/11 How often do you get together with friends or re latives? 98 10/11/2024 Do you belong to any clubs o r organizations such as adventist groups, unions, athletic groups, or school groups? 98 07/2025 How often do you attend meet ings of the clubs or organizations you belong to? 98 10/11/2024 Comments No Sex and Gender Information Value Date Recorded Sex Assigned at Female 05/22/2024 8:17 PM EDT Legal Sex Female 1:34 PM EDT Gender Identity Genderqueer or Non-binary 2023 8:17 PM EDT Sexual Orientation Something else 05/22/2024 8: 17 PM EDT documented as of this encounter Plan of Treatment Upcoming Encounters Date Type Department Care Team (Latest Contact Info) Description 05/30/2025 11:30 AM EDT Office Visit [facility] [address] [place] [address] Cristine Villegas PA 123 [facility] [address] [place] [address] Return in about 3 months (around 05/30/2025) for GYR/annual exam. 06/20/2025 3:00 PM EDT Office Visit [facility] [address] [facility] [address] [place] [address] Adelaida Goddard PA 123 [facility] [address] [place] [address] 3 mos headaches 06/26/2025 3:00 PM EDT Office Visit [facility] [address] [place] [phone] Kareen Chandra NP 123 [facility] [address] [place] [address] Botox/no pa needed/84 days/12 wks/consent good/med needs to be listed in epic/buy/bill 08/15/2025 11:45 AM EST CPE - Comprehensive Physical Exam [facility] [address] [place] [phone] Kamilla Nicolas MD [address] [place] [phone] lpe 08/12/2024 08/21/2025 1:45 PM EST Office Visit [facility] [address] [facility] [address] [place] [phone] Taya Leblanc MD [address] [facility] [address] [place] [address] 5-6 months follow up 09/20/2025 4:00 PM EST Office Visit [facility] [address] [place] [address] Kareen Chandra NP 123 [facility] [address] [place] [address] Botox/no pa needed/84 days/12 wks/consent good/med needs to be listed in epic/buy/bill Scheduled Orders Name Type Priority Associated Diagnoses Orde r Schedule XRAY FEET COMPLETE MIN 3 VWS - BILAT Imaging Routine Bilateral foot pain Expected: 12/19/2024, Expires: 12/19/2027 documented as of this encounter Goals Goal Patient Goal Type Associated Problems Recent Progress Patient-Stated? Author Blood Pressure < 140/90 Blood Pressure 146/102(01/31 9:06 AM EDT) Kamilla Arboleda MD Note: Above is your goal for blood pressure control. You may be able to prevent, reduce or eliminate the medication required for your blood pressure by regular measurement of your blood pressure at home, since home readings are often more reliable than measurements at the doctor s office. You can also improve your blood pressure by getting regular exercise, keeping a normal weight, reducing your sodium/salt intake to 2000 mg/day, reducing caffeine and by limiting your alcohol intake. Men should limit consumption to no more than 2 drinks per day (beer, wine, or mixed drinks) and women should limit to one drink per day. Follow the DASH diet, a diet low in fat, cholesterol, red meat, and sweets. It emphasizes fruits, vegetables, and low-fat dairy foods. The DASH diet also includes whole-grain products, fish, poultry, and nuts. Quit smoking / using tobacco Lifestyle Kamilla Arboleda MD Note: Smoking can cause cancer, heart attacks, hardening of the arteries, bronchitis, emphysema, cough, shortness of breath, wrinkles, and premature aging and premature births. Some benefits of quitting smoking begin right away. Your risk of heart disease begins to decrease as soon as you quit. Your general health may also start to improve immediately because you are not irritating your lungs and more oxygen gets to your body organs. Your blood circulation is likely to get better. Other benefits may include fewer colds and lung infections as well as reduced risk of high blood pressure, stroke, and cancer. Interested in quitting smoking? Discuss medication options with your provider or contact the Quit To Win program at . Any insurance accepted. Quit smoking resources-http://FlockOfBirds.org HEMOGLOBIN A1C % < 7 Result Component 6.0(12/13/19 3:28 PM EDT) Kamilla Arboleda MD Note: Above is your goal for sugar control. Your risk for future diabetic complications such as blindness and amputation can be reduced by following your diabetic diet plan, and paying careful attention to self-monitoring your blood sugar and blood pressure at home. Please plan to check your blood sugar and blood pressure at the frequency suggested, and bring these numbers with you to your next scheduled visit. If you have difficulty reaching the goals which you have set for your diabetes your PCP can refer to one of our diabetes self-management support programs. A fasting blood sugar below 120 is ideal. documented as of this encounter Procedures Procedure Name Priority Date/Time Associated Diagnosis Comments HEMOGLOBIN A1C Routine 12/12/2024 3:28 PM EDT Type 2 diabetes mellitus with hyperglycemia, without long-term current use of insulin (HCC) LIPID PANEL WITH REFLEX TO DIRECT LDL Routine 12/12/2024 3:28 PM EDT Type 2 diabetes mellitus with hyperglycemia, without long-term current use of insulin (HCC) COMPREHENSIVE METABOLIC PANEL WITH GFR Routine 12/12/2024 3:28 PM EDT Type 2 diabetes mellitus with hyperglycemia, without long-term current use of insulin (HCC) documented in this encounter Results * (ABNORMAL) COMPREHENSIVE METABOLIC PANEL WITH GFR (12/12/2024 3:28 PM EDT) [facility] Glucose 103(H) 65 - 99 mg/dL [facility] Comment: Fasting reference interval For someone without known diabetes, a glucose value between 100 and 125 mg/dL is consistent with prediabetes and should be confirmed with a follow-up test. Urea Nitrogen Blood (BUN) 12 7 - 25 mg/dL [facility] Creatinine 0.80 0.50 - 0.96 mg/dL [facility] EGFR 103 > OR = 60 mL/min/1. 73m2 [facility] BUN/Creatinine Ratio SEE NOTE: 6 - 22 (calc) [facility] Comment: Not Reported: BUN and Creatinine are within reference range. Sodium 141 135 - 146 mmol/L [facility] Potassium 4.0 3.5 - 5.3 mmol/L [facility] Chloride 108 98 - 110 mmol/L [facility] Carbon dioxide 26 20 - 32 mmol/L [facility] Calcium 9.3 8.6 - 10.2 mg/dL [facility] Protein Total (Serum) 6.6 6.1 - 8.1 g/dL [facility] Albumin 4.2 3.6 - 5.1 g/dL [facility] Globulin 2.4 1.9 - 3.7 g/dL (calc) [facility] Albumin/Globuli n 1.8 1.0 - 2.5 (calc) [facility] Bilirubin Total 0.3 0.2 - 1.2 mg/dL [facility] Alkaline phosphatase 67 31 - 125 U/L [facility] AST (SGOT) 17 10 - 30 U/L [facility] ALT (SGPT) 31(H) 6 - 29 U/L [facility] 12/12/2024 3:28 PM EDT 12/13/2024 12:32 AM EDT Narrative [facility] - 12/13/2024 3:48 AM EDT Please note that this estimated GFR does not include an adjustment for the patient's height or weight, and can therefore, be viewed as reliable only for patients with heights between 60 and 72 . More precise quantification using a 24-hour urine sample or height-based algorithm is recommended for patients outside of this range of height and for those individuals with more precise needs for GFR calculation. Resulting Agency Comment [id number] Kamilla Nicolas MD LABORATORY Final Result [facility] [address] [place] [address] * (ABNORMAL) HEMOGLOBIN A1C (12/12/2024 3:28 PM EDT) Hemoglobin A1C 6.0(H) <5.7 % [facility] Comment: For someone without known diabetes, a hemoglobin A1c value between 5.7% and 6.4% is consistent with prediabetes and should be confirmed with a follow-up test. For someone with known diabetes, a value <7% indicates that their diabetes is well controlled. A1c targets should be individualized based on duration of diabetes, age, comorbid conditions, and other considerations. This assay result is consistent with an increased risk of diabetes. Currently, no consensus exists regarding use of hemoglobin A1c for diagnosis of diabetes for children. Estimated Average Glucose 136 mg/dL (calc) [facility] 12/12/2024 3:28 PM EDT 12/13/2024 12:32 AM EDT Narrative Resulting Agency Comment [id number] Kamilla Nicolas MD LABORATORY Final Result [facility] [address] [place] [address] * (ABNORMAL) LIPID PANEL WITH REFLEX TO DIRECT LDL (12/12/2024 3:28 PM EDT) Cholesterol 148 <200 mg/dL [facility] HDL Cholesterol 53 > OR = 50 mg/dL [facility] Triglyceride 153(H) <150 mg/dL [facility] LDL Cholesterol 71 mg/dL (calc) [facility] Comment: Reference range: <100 Desirable range <100 mg/dL for primary prevention; <70 mg/dL for patients with CHD or diabetic patients with > or = 2 CHD risk factors. LDL-C is now calculated using the Cuba-Solitario calculation, which is a validated novel method providing better accuracy than the Friedewald equation in the estimation of LDL-C. Cuba LA et al. IRVING. 2013;310(19): 1669-1868 (http://education.[employer]/faq/GSQ686) CHOL/HDL Ratio 2.8 <5.0 (calc) [facility] Cholesterol Non-HDL 95 <130 mg/dL (calc) [facility] Comment: For patients with diabetes plus 1 major ASCVD risk factor, treating to a non-HDL-C goal of <100 mg/dL (LDL-C of <70 mg/dL) is considered a therapeutic option. 12/12/2024 3:28 PM EDT 12/13/2024 12:32 AM EDT Narrative Resulting Agency Comment [id number] Kamilla Nicolas MD LABORATORY Final Result [facility] [address] [place] [address] documented in this encounter Visit Diagnoses Diagnosis Type 2 diabetes mellitus with hyperglycemia, without long-term current use of insulin (HCC) Bilateral foot pain Pain in limb documented in this encounter Care Teams Legislative Director Relationship Specialty Start Date End Date Kamilla Nicolas MD [address] [place] [address] PCP - General Internal Medicine 01/13/23 Emely Farmer NP [address] [place] [phone] PCP - Backup PCP 10/07/24 Tico Armas [facility] 10/29/24 12/21/24 THERAPEUTIC RECREATION DIRECTOR CARE TEAM YELLOW hard metals engraver hand 05/15/23 documented as of this encounter
--- OUTSIDE RECORDS SUMMARY | 2025-05-18 22:57 | XMS_ITS | Encounter Summary ---
Author Organization [facility] Address [address] [place] [address] Care Team Providers Care Fireman Helper Name Role Phone Kamilla Nicolas MD Primary Care Provider [phone] Emely Farmer ON AIR HOST Unavailable [phone] [facility] Unavailable U navailable Reason for Visit * Reason Comments Medical Record Encounter Details Date Type Department Care Team ( Contact Info) Description 02/17/2023 Abstract [facility] [address] [address] Unknown Social History Tobacco Use Types Packs/Day Years Used Date Smoking Tobacco: Former Cigarettes Smokeless Tobacco: Never Comments:Currently vapes frandy otine Comments No Sex and Gender Information Value [...] 05/30/2025 11:30 AM EDT Office Visit [facility] [address] [place] [address] Cristine Villegas PA 123 [facility] [address] [place] [address] Return in about 3 months (around 05/30/2025) for GYR/annual exam. 06/20/2025 3:00 PM EDT Office Visit [facility] [address] [phone] Adelaida Goddard PA [address] [address] 3 mos headaches 06/26/2025 3:00 PM EDT Office Visit [facility] [address] [place] [phone] Kareen Chandra NP [address] [address] Botox/no pa needed/84 days/12 wks/consent good/med needs to be listed in epic/buy/bill 08/15/2025 11:45 AM EST CPE - Comprehensive Physical Exam [facility] [address] [place] [phone] Kamilla Nicolas MD [address] [place] [phone] lpe 08/12/2024 08/21/2025 1:45 PM EST Office Visit [facility] [address] [facility] [address] [phone] Taya Leblanc MD [facility] [address] [address] 5-6 months follow up 09/20/2025 4:00 PM EST Office Visit [facility] [address] [place] [phone] Kareen Chandra NP [address] [address] Botox/no pa needed/84 days/12 wks/consent good/med needs to be listed in epic/buy/bill documented as of this encounter Goals Goal Patient Goal Type Associated Problems Recent Progress Patient-Stated? Author Blood Pressure < 140/90 Blood Pressure 146/102(02/27 9:06 AM EDT) Kamilla Arboleda MD Note: [...] includes whole-grain products, fish, poultry, and nuts. documented as of this encounter Visit Diagnoses Not on filedocumented in this encounter Care Teams Fireman Helper Relationship Specialty Start Date End Date Kamilla Nicolas MD [address] [place] [phone] PCP - General Internal Medicine 01/13/23 Emely Farmer NP [address] [place] [phone] PCP - Backup PCP 10/07/24 Tico Armas [facility] 10/29/24 12/21/24 PRACTICE COORDINATOR CARE TEAM YELLOW plastic welding machine operator 05/15/23 documented as of this encounter
--- OUTSIDE RECORDS SUMMARY | 2025-05-18 22:57 | XMS_ITS | Encounter Summary ---
Author Organization [facility] Address [address] [place] [address] Care Team Providers Care Ride Operator Name Role Phone Kamilla Nicolas MD Primary Care Provider [phone] Emely Farmer EMBROIDERY CUTTER Unavailable [facility] Unavailable U navailable Reason for Visit * Reason Comments Med Change Request Encounter Details Date Type Department Care Team (Late st Contact Info) Description 06/01/2023 Refill [facility] [address] [place] [phone] Kamilla Nicolas MD [address] [place] [address] Med Change Request Social History Tobacco Use Types Packs/Day Years Used Date Smoking Tobacco: Former Cigarettes Smokeless Tobacco: Never Comments:Currently vapes frandy otine Intimate Partner Violence Answer Date R ecorded Fear of Current or Ex-Partner Not on file Emotionally Abused Not on file 02/25/2023 Physically Abused Not on file 02/25/2023 Sexually Abused Not on file 02/25/2023 Do you feel physically and e motionally safe where you currently live? Yes 02/25/2023 Social Connections Answer Date Recorded Phone Communication More than three times a week 02/25/2023 Get together with friends / family Once a week 02/25/2023 Attend gnosticist services Patient declined 06/28 /2023 Club Membership No 02/25/2023 Club Attendance Patient declined 02/25/2023 Marital Status Living with partner 02/25/2023 Financial Resource Strain Answer Date R ecorded Difficulty paying for basics Somewhat hard How hard is it for you to pa y for utilities (electricity, gas, water)? Somewhat hard 02/25/2023 Food Insecurity Answer Date Recorded Worry that food will run out Sometimes true Inability to get food Sometimes true 02/25/2023 Transportation Needs Answer Date Record ed Lacking transport to medical appts Yes 02/25/2023 Lacking transport to non-medical Yes 02/25/2023 Housing Stability Answer Date Recorded Unable to Pay for Housing in the Last Year Yes 02/25/2023 [address] of Places Lived in the Last Year 2 02/25/2023 Unstable Housing in the Last Year No 02/25/2023 Comments No Sex and Gender Information Value Date Recorded Sex Assigned at Female 05/22/2024 8:17 PM EDT Legal Sex Female 1:34 PM EDT Gender Identity Genderqueer or Non-binary 2023 8:17 PM EDT Sexual Orientation Something else 05/22/2024 8: 17 PM EDT documented as of this encounter Miscellaneous Notes * Telephone Encounter - Neeru Thakkar - 06/08/2023 12:40 PM EDT Duplicate- patient has picked up the requesting testing supplies documented in this encounter Plan of Treatment Upcoming Encounters Date Type Department Care Team (Latest Contact Info) Description 05/30/2025 11:30 AM EDT Office Visit [facility] [address] [place] [address] Cristine Villegas, ARIE 123 [facility] 150 [place] [address] Return in about 3 months (around 05/30/2025) for GYR/annual exam. 06/20/2025 3:00 PM EDT Office Visit [facility] Neurology [address] [facility] 230 [place] [address] Adelaida Goddard PA [address] [address] 3 mos headaches 06/26/2025 3:00 PM EDT Office Visit [facility] [address] [place] [phone] Kareen Chandra NP [address] [address] Botox/no pa needed/84 days/12 wks/consent good/med needs to be listed in [employer]/buy/bill 08/15/2025 11:45 AM EST CPE - Comprehensive Physical Exam [facility] [address] [place] [phone] Kamilla Nicolas MD [address] [place] [address] lpe 08/12/2024 08/21/2025 1:45 PM EST [facility] Visit [facility] [address] [facility] [address] [address] Taya Leblanc MD [address] [address] 5-6 months follow up 09/20/2025 4:00 PM EST Office Visit [facility] [address] [place] [phone] Kareen Chandra NP [address] [address] Botox/no pa needed/84 days/12 wks/consent good/med needs to be listed in epic/buy/bill documented as of this encounter Goals Goal Patient Goal Type Associated Problems Recent Progress Patient-Stated? Author Blood Pressure < 140/90 Blood Pressure 146/102(02/27 9:06 AM EDT) No Kamilla Nicolas MD Note: Above is your goal for [...] documented as of this encounter Visit Diagnoses Diagnosis Prediabetes Other abnormal glucose documented in this encounter Care Teams Ride Operator Relationship Specialty Start Date End Date Kamilla Nicolas MD 1 [place] [address] PCP - General Internal Medicine 01/13/23 Emely Farmer NP [address] [place] [address] PCP - Backup PCP 10/07/24 [facility] 10/29/24 12/21/24 AGRICULTURAL PRODUCE SORTER CARE TEAM YELLOW manpower development advisor 05/15/23 documented as of this encounter
--- OUTSIDE RECORDS SUMMARY | 2025-05-18 22:57 | XMS_ITS | Encounter Summary ---
Author Organization [facility] Address [address] [place] [address] Care Team Providers Care Jinriksha Driver Name Role Phone Kamilla Nicolas MD Primary Care Provider [phone] Emely Farmer COATING MACHINE OPERATOR Unavailable [phone] [facility] Unavailable U navailable Encounter Details Date Type Department Care Team (Late st Contact Info) Description 04/01/2023 Abstract [facility] [address] [place] [address] Unknown Social History Tobacco Use Types Packs/Day [...] / family Once a week 02/25/2023 Attend pentecostalism services Patient declined 02/25 Club Membership No 02/25/2023 Club Attendance Patient [...] Description 05/30/2025 11:30 AM EDT Office Visit [facility] [address] [place] [phone] Cristine Villegas PA [address] [address] Return in about 3 months (around 05/30/2025) for GYR/annual exam. 06/20/2025 3:00 PM EDT Office Visit [facility] Neurology [address] [facility] 230 [place] [address] Adelaida Goddard PA 123 [facility] 230 [place] [address] 3 mos headaches 06/26/2025 3:00 PM EDT Office Visit [facility] [address] [place] [address] Kareen Chandra NP 123 [facility] 230 [place] [address] Botox/no pa needed/84 days/12 wks/consent good/med needs to be listed in [employer]/bill 08/15/2025 11:45 AM EST CPE - Comprehensive Physical Exam [facility] [address] [place] [address] Kamilla Nicolas MD [address] [place] [address] lpe 08/12/2024 08/21/2025 1:45 PM EST Office Visit [facility] [address] [phone] Taya Leblanc MD [address] [address] 5-6 months follow up 09/20/2025 4:00 PM EST Office Visit [facility] [address] [place] [address] Kareen Chandra NP 123 [facility] 230 [place] [address] Botox/no pa needed/84 days/12 wks/consent good/med needs to be listed in [employer]/buy/bill documented as of this encounter Goals Goal [...] on filedocumented in this encounter Care Teams Jinriksha Driver Relationship Specialty Start Date End Date Kamilla Nicolas MD [address] [place] [address] PCP - General Internal Medicine 01/13/23 Emely Farmer NP [address] [place] [address] PCP - Backup PCP 10/07/24 Tico Armas [facility] Assistants 10/29/24 12/21/24 SOFTWARE SUPPORT SPECIALIST CARE TEAM YELLOW segmental wall installer 05/15/23 documented as of this encounter
--- OUTSIDE RECORDS SUMMARY | 2025-05-18 22:57 | XMS_ITS | Encounter Summary ---
Author Organization [facility] Address [address] [place] [address] Care Team Providers Care Balance Wheel Screw Hole Driller Name Role Phone Kamilla Nicolas MD Primary Care Provider [phone] Emely Farmer TECH ED TEACHER Unavailable [phone] [facility] Unavailable U navailable Reason for Referral * OUTPT PROCEDURES AND DIAGNOSTICS (Routine) - Authorized Specialty Diagnoses / Procedures Referred By Contac t Referred To Contact CT Scan Diagnoses Traumatic injury of head, sequela Procedures REQUEST FOR CAT SCAN NON-FC Johnathan Lewis MD 123 [facility] [address] [place] [address] Phone: tel: fax: Referral ID Status Reason Start Date Expiration Date Visits Requested Visits Authorized [id number] Authorized Specialty Services Required 05/19/2023 07/18/2023 1 1 Encounter Details Date Type Department Care Team (Late st Contact Info) Description 03/31/2023 Orders Only [facility] Neurology [address] [facility] [address] [place] [address] Johnathan Lewis MD 123 [facility] 230 [place] [address] Social History Tobacco Use Types Packs/Day Years [...] / family Once a week 02/25/2023 Attend sabianism services Patient declined 02/25 Club Membership No [...] Description 05/30/2025 11:30 AM EDT Office Visit [facility] [address] [place] [address] Cristine Villegas PA [address] [place] [address] Return in about 3 months (around 05/30/2025) for GYR/annual exam. 06/20/2025 3:00 PM EDT Office Visit [facility] Neurology [address] [address] Adelaida Goddard PA [address] [address] 3 mos headaches 06/26/2025 3:00 PM EDT Office Visit [facility] [address] [place] [phone] Kareen Chandra NP [address] [address] Botox/no pa needed/84 days/12 wks/consent good/med needs to be listed in epic/buy/bill 08/15/2025 11:45 AM EST CPE - Comprehensive Physical Exam [facility] [address] [place] [phone] Kamilla Nicolas MD [address] [place] [address] lpe 08/12/2024 08/21/2025 1:45 PM EST Office Visit [facility] [address] [facility] [address] [address] Taya Leblanc MD [address] [address] 5-6 months follow up 09/20/2025 4:00 PM EST Office Visit [facility] [address] [place] [phone] Kareen Chandra NP [address] [address] Botox/no pa needed/84 days/12 wks/consent good/med needs to be listed in epic/buy/bill Scheduled Orders Name Type Priority Associated Diagnoses Orde r Schedule REQUEST FOR CAT SCAN NON-FC Imaging Routine Traumatic injury of head, sequela Ordered: 03/31/2023 documented as of this encounter Goals Goal [...] as of this encounter Visit Diagnoses Diagnosis Traumatic injury of head, sequela documented in this encounter Care Teams Balance Wheel Screw Hole Driller Relationship Specialty Start Date End Date Kamilla Nicolas MD [address] [place] [address] PCP - General Internal Medicine 01/13/23 Emely Farmer NP [address] [place] [address] PCP - Backup PCP 10/07/24 Tico Armas [facility] Assistants 10/29/24 12/21/24 PILOT BOAT CAPTAIN CARE TEAM YELLOW intensive care medicine specialist 05/15/23 documented as of this encounter
--- OUTSIDE RECORDS SUMMARY | 2025-05-18 22:57 | XMS_ITS | Encounter Summary ---
Author Organization [facility] Address [address] [place] [address] Care Team Providers Care Auto Body Painter Name Role Phone Kamilla Nicolsa DO Primary Care Provider [phone] Reason for Visit * Reason Onset Date Comments Actionable Finding 12/30/2023 Encounter Details Date Type Department Care Team (Late st Contact Info) Description 12/30/2023 Telephone [facility] - Actionable Findings 100 [facility] [address] [place] [address] Laurita Sutherland LPN Actionmyles Finding Social History Tobacco Use Types Packs/Day Years Used Date Smoking Tobacco: Every Day Smokeless Tobacco: Never Comments:: Alcohol Use Standard Drinks/Week Comments Yes 0 (1 standard drink = 0.6 oz pur e alcohol) special occasions Comments No Sex and Gender Information Value Date Recorded Sex Assigned at Female 02/21/2022 8:14 AM EDT Legal Sex Female 1:13 AM EDT Gender Identity Female 02/21/2022 8:14 AM EDT Sexual Orientation Bisexual 02/21/2022 8: 14 AM EDT documented as of this encounter Miscellaneous Notes * Telephone Encounter - Laurita Sutherland LPN - 12/30/2023 9:12 AM EDT Actionable finding review of CT Date of scan: 12/03/23 Location of scan: [facility] Tiffani Randall performed a review of radiology result(s). Laurita Mcfarland LPN at [phone] documented in this encounter Plan of Treatment Not on file documented as of this encounter Visit Diagnoses Not on filedocumented in this encounter Care Teams Auto Body Painter Relationship Specialty Start Date End Date Kamilla Nicolas DO [address] [place] [address] PCP - General 08/19/23 documented as of this encounter
--- OUTSIDE RECORDS SUMMARY | 2025-05-18 22:57 | XMS_ITS | Encounter Summary ---
Author Organization [facility] Address [address] [place] [address] Care Team Providers Care Fast Food Cook Name Role Phone Kamilla Nicolas MD Primary Care Provider Emely Farmer THIRD COOK Unavailable [phone] [facility] Unavailable U navailable Encounter Details Date Type Department Care Team (Late st Contact Info) Description 07/04/2024 Orders Only [facility] [address] [place] [phone] Kamilla Nicolas MD [address] [place] [address] Social History Tobacco Use Types Packs/Day Years Used Date Smoking Tobacco: Some Days Cigarettes Smokeless Tobacco: Never Comments:Currently vapes frandy otine Has cut down to 60 puffs a day , was doing 150-200 /d 4-5 cigarettes daily Alcohol Use Standard Drinks/Week Comments Not Currently 0 (1 standard drink = 0.6 oz pur e alcohol) PHQ-2 Answer Date Recorded PHQ-2 Score 6 08/10/2023 PHQ-9 Answer Date Recorded PHQ-9 Score 25 08/10/2023 Intimate Partner Violence Answer Date R ecorded [...] / family Once a week 02/25/2023 Attend jainism services Patient declined 02/25 Club Membership No [...] for Housing in the Last Year Yes 01/13/2024 [address] of Places Lived in the Last Year 2 01/13/2024 Unstable Housing in the Last Year No 01/13/2024 Do you have housing? Not on file 01/13/2024 Are you worried about losing your housing? Not o n file 01/13/2024 Are you worried about losing your housing? Not o n file 01/13/2024 Comments No Sex and Gender Information Value Date Recorded Sex Assigned at Female 05/22/2024 8:17 PM EDT Legal Sex Female 1:34 PM EDT Gender Identity Genderqueer or Non-binary 2023 8:17 PM EDT Sexual Orientation Something else 05/22/2024 8: 17 PM EDT documented as of this encounter Miscellaneous Notes * Result Encounter Note - Linn Villela LPN - 07/04/2024 3:16 PM EST Diabetic range Endo patient of Taya Leblanc MD * Result Encounter Note - Kamilla Nicolas MD - 07/04/2024 3:16 PM EST Patient is under care of endocrinology for weight loss His A1c is now much worse and is 7. She is only on metformin 500 mg ER as that has been the dose she can tolerate due to GI side effects She is also on Wegovy - dose of which can be increased to help. I wanted to make sure care if coordinated. If you are ok I can send her the higher dose or she can wait to see Dr. Leblanc for fup in July. * Result Encounter Note - Shahrzad Weir MD FACP - 07/04/2024 3:16 PM EST If she is not having GI side effects, it's fine to increase Wegovy. Could also switch her to tirzepatide (Mounjaro) at an equivalent dose to start as this is somewhat more effective. But would definitely wean her up on the GLP 1 agonist, making sure she understands that she needs to modify her dietto a diet high in veggies and lean proteins, and avoidant of sweets and white carbs. Also she should know that she will more likely to get GI side effects if she eats rich high carb food, overeats oreats less than 3 hours before bedtime. documented in this encounter Plan of Treatment Upcoming Encounters Date Type Department Care Team (Latest Contact Info) Description 05/30/2025 11:30 AM EDT Office Visit [facility] [address] [place] [address] Cristine Villegas PA 123 [facility] 150 [place] [address] Return in about 3 months (around 05/30/2025) for GYR/annual exam. 06/20/2025 3:00 PM EDT Office Visit [facility] Neurology [address] [facility] 230 [place] [address] SkriAdelaida buitrago PA [address] [address] 3 mos headaches 06/26/2025 3:00 PM EDT Office Visit [facility] [address] [place] [phone] Kareen Chandra NP [address] [address] Botox/no pa needed/84 days/12 wks/consent good/med needs to be listed in epic/buy/bill 08/15/2025 11:45 AM EST CPE - Comprehensive Physical Exam [facility] [address] [place] [phone] Kamilla Nicolas MD [address] [place] [address] lpe 08/12/2024 08/21/2025 1:45 PM EST Office Visit [facility] [address] [phone] Taya Leblanc MD [address] [address] 5-6 months follow up 09/20/2025 4:00 PM EST Office Visit [facility] [address] [place] [phone] Kareen Chandra NP [address] [address] Botox/no pa needed/84 days/12 wks/consent good/med needs [...] nuts. Quit smoking / using tobacco Lifestyle No Kamilla Nicolas MD Note: Smoking can cause cancer, heart [...] at . Any insurance accepted. Quit smoking resources-[email or web address].org documented as of this encounter Procedures Procedure Name Priority Date/Time Associated Diagnosis Comments HEMOGLOBIN A1C Routine 07/04/2024 3:16 PM EST Prediabetes documented in this encounter Results * (ABNORMAL) HEMOGLOBIN A1C (07/04/2024 3:16 PM EST) Hemoglobin A1C 7.0(H) <5.7 % of total Hgb [facility] Comment: For someone without known diabetes, a hemoglobin A1c value of 6.5% or greater indicates that they may have diabetes and this should be confirmed with a follow-up test. For someone with known diabetes, a value <7% indicates that their diabetes is well controlled and a value greater than or equal to 7% indicates suboptimal control. A1c targets should be individualized based on duration of diabetes, age, comorbid conditions, and other considerations. Currently, no consensus exists regarding use of hemoglobin A1c for diagnosis of diabetes for children. Estimated Average Glucose 172 mg/dL (calc) [facility] 07/04/2024 3:16 PM EST 07/05/2024 12:30 AM EST Narrative Resulting Agency Comment [id number] Kamilla Nicolas MD LABORATORY Final Result Performing Organization Address City/State/[facility] Co de Phone Number [facility] [address] [place] [address] documented in this encounter Visit Diagnoses Diagnosis Prediabetes Other abnormal glucose documented in this encounter Care Teams Fast Food Cook Relationship Specialty Start Date End Date Kamilla Nicolas MD [address] [place] [address] PCP - General Internal Medicine 01/13/23 Emely Farmer NP [address] [place] [address] PCP - Backup PCP [facility] 12/21/24 PHYSICAL THERAPY MANAGER CARE TEAM YELLOW insulation cutter and former 05/15/23 documented as of this encounter
--- OUTSIDE RECORDS SUMMARY | 2025-05-18 22:57 | XMS_ITS | Encounter Summary ---
Author Organization [facility] Address [address] [place] [address] Care Team Providers Care Survey Engineer Name Role Phone Kamilla Nicolas MD Primary Care Provider [phone] Emely Farmer PERINATAL BREASTFEEDING ASSISTANT Unavailable [phone] Encounter Details Date Type Department Care Team (Late st Contact Info) Description 01/02/2025 Orders Only [facility] [address] [place] [phone] Kamilla Nicolas MD [address] [place] [address] Social History Tobacco Use Types Packs/Day Years [...] / family Patient declcarter agustin 10/11/2024 Attend yazdanism services Patient declined 10/11 Club Membership Patient [...] ed Lacking transport to medical appts Patient carlii agustin 10/11/2024 Lacking transport to non-medical Patient [...] any clubs o r organizations such as jain groups, unions, athletic groups, or school groups? [...] Description 05/30/2025 11:30 AM EDT Office Visit [facility] [address] [place] [address] Cristine Villegas PA [address] [facility] 150 [place] [address] Return in about 3 months (around 05/30/2025) for GYR/annual exam. 06/20/2025 3:00 PM EDT Office Visit [facility] Neurology [address] [facility] [address] [place] [address] Adelaida Goddard PA 123 [facility] 230 [place] [address] 3 mos headaches 06/26/2025 3:00 PM EDT Office Visit [facility] [address] [place] [address] Kareen Chandra NP 123 [facility] 230 [place] [address] Botox/no pa needed/84 days/12 wks/consent good/med needs to be listed in epic/buy/bill 08/15/2025 11:45 AM EST CPE - Comprehensive Physical Exam [facility] [address] [place] [phone] Kamilla Nicolas MD [address] [place] [address] lpe 08/12/2024 08/21/2025 1:45 PM EST Office Visit [facility] [address] 1 [facility] 3rd [place] [phone] Taya Leblanc MD [address] [address] 5-6 months follow up 09/20/2025 4:00 PM EST Office Visit [facility] [address] [place] [address] Kareen Chandra NP [address] [facility] 230 [place] [address] Botox/no pa needed/84 days/12 wks/consent good/med needs [...] at . Any insurance accepted. Quit smoking resources-http://makesEverywun.org HEMOGLOBIN A1C % < 7 Result Component [...] Procedure Name Priority Date/Time Associated Diagnosis Comments HCG, TOTAL, QL Routine 01/02/2025 2:33 PM EDT Nausea MAGNESIUM, SERUM Routine 01/02/2025 2:33 PM EDT Nausea LIPASE, SERUM Routine 01/02/2025 2:33 PM EDT Nausea COMPREHENSIVE METABOLIC PANEL WITH GFR Routine 01/02/2025 2:33 PM EDT Nausea documented in this encounter Results * HCG, TOTAL, QL (01/02/2025 2:33 PM EDT) HCG, Qualitative (Screen) NEGATIVE [facility] Comment: Reference Range Non-: Negative : Positive 01/02/2025 2:33 PM EDT 01/03/2025 2:12 AM EDT Narrative Resulting Agency Comment [id number] us Kamilla Nicolas MD LAB SAME DAY RESULT Final Resul t [facility] [address] [place] [address] * LIPASE, SERUM (01/02/2025 2:33 PM EDT) Lipase 25 7 - 60 U/L [facility] 01/02/2025 2:33 PM EDT 01/03/2025 2:12 AM EDT Narrative Resulting Agency Comment [id number] Kamilla Nicolas MD LABORATORY Final Result [facility] [address] [place] [address] * (ABNORMAL) COMPREHENSIVE METABOLIC PANEL WITH GFR (01/02/2025 2:33 PM EDT) Glucose 145(H) 65 - 99 mg/dL [facility] Comment: Fasting reference interval For someone without known diabetes, a glucose value >125 mg/dL indicates that they may have diabetes and this should be confirmed with a follow-up test. Urea Nitrogen Blood (BUN) 13 7 - 25 mg/dL [facility] Creatinine 0.73 0.50 - 0.96 mg/dL [facility] EGFR 115 > OR = 60 mL/min/1. 73m2 [facility] BUN/Creatinine Ratio SEE NOTE: 6 - 22 (calc) [facility] Comment: Not Reported: BUN and Creatinine are within reference range. Sodium 140 135 - 146 mmol/L [facility] Potassium 3.7 3.5 - 5.3 mmol/L [facility] Chloride 108 98 - 110 mmol/L [facility] Carbon dioxide 23 20 - 32 mmol/L [facility] Calcium 9.3 8.6 - 10.2 mg/dL [facility] Protein Total (Serum) 6.7 6.1 - 8.1 g/dL [facility] Albumin 4.1 3.6 - 5.1 g/dL [facility] Globulin 2.6 1.9 - 3.7 g/dL (calc) [facility] Albumin/Globuli n 1.6 1.0 - 2.5 (calc) [facility] Bilirubin Total 0.3 0.2 - 1.2 mg/dL [facility] Alkaline phosphatase 78 31 - 125 U/L [facility] AST (SGOT) 17 10 - 30 U/L [facility] ALT (SGPT) 31(H) 6 - 29 U/L [facility] 01/02/2025 2:33 PM EDT 01/03/2025 2:12 AM EDT Narrative [facility] - 01/03/2025 9:14 AM EDT Please note that this estimated [...] needs for GFR calculation. Resulting Agency Comment [id number] us Kamilla Nicolas MD LABORATORY Final Result Performing Organization Address City/[facility]/ZIP Co de Phone Number [facility] [address] [place] [address] * MAGNESIUM, SERUM (01/02/2025 2:33 PM EDT) Magnesium 1.8 1.5 - 2.5 mg/dL [facility] 01/02/2025 2:33 PM EDT 01/03/2025 2:12 AM EDT Narrative Resulting Agency Comment [id number] us Kamilla Nicolas MD LABORATORY Final Result Performing Organization Address [facility] Co de Phone Number [facility] [address] [place] [address] documented in this encounter Visit Diagnoses Diagnosis Nausea Nausea alone documented in this encounter Care Teams Survey Engineer Relationship Specialty Start Date End Date Kamilla Nicolas MD [address] [place] [address] PCP - General Internal Medicine 01/13/23 Emely Farmer NP [address] [place] [address] PCP - Backup PCP 10/07/24 WINDOW SHADE CLOTH SEWER CARE TEAM YELLOW supervisor counseling and guidance 05/15/23 documented as of this encounter
--- OUTSIDE RECORDS SUMMARY | 2025-05-18 22:57 | XMS_ITS | Encounter Summary ---
Author Organization [facility] Address [address] [place] [address] Care Team Providers Care Consultant Technology Name Role Phone Kamilla Nicolas MD Primary Care Provider [phone] Emely Farmer WARDROBE SPECIALTY WORKER Unavailable [phone] [facility] Unavailable U navailable Reason for Visit * Reason Comments Information Encounter Details Date Type Department Care Team ([facility] st Contact Info) Description 03/27/2023 Telephone [facility] CT Scan 5 [place] [address] Johnathan Lewis MD [address] [place] [address] [address] [place] [address] Information Social History Tobacco Use Types Packs/Day Years [...] / family Once a week 02/25/2023 Attend mu-ism services Patient declined 02/25 Club Membership No [...] encounter Miscellaneous Notes * Telephone Encounter - Jael Lamas - 04/16/2023 3:15 PM EDT Order faxed * Telephone Encounter - Christa Rossi RN - 03/31/2023 1:09 PM EDT Spoke with [facility] They have ability to hold 650lb depending on girth, they can accomodate Order placed for [facility] Please fax order * Telephone Encounter - Christa Rossi RN - 03/31/2023 12:08 PM EDT Message left for [facility] CT dept to call back * Telephone Encounter - Johnathan Lewis MD - 03/31/2023 10:43 AM EDT Can someone look into where she can get a scan? * Telephone Encounter - Michelle Tillman Tech - 03/31/2023 9:03 AM EDT You were sent a Tele encounter 03/27 regarding pt not being able to be scanned here due to over the table weight limit. Just want to make sure you received note, there is not an update in her chart from you, sophia Martinez * Telephone Encounter - Sheyla Ba - 03/27/2023 9:58 AM EDT You had ordered a ct head for post trauma, cognitive worsening. This patient weighs 480 lbs. She exceeds weight limit of our table. You will have to reroute her somewhere else that has a larger weight limit. Wu Sam. documented in this encounter Plan of Treatment Upcoming Encounters Date Type Department Care Team (Latest Contact Info) Description 05/30/2025 11:30 AM EDT Office Visit [facility] [address] [place] [address] Cristine Villegas PA 123 [facility] 150 [place] [address] Return in about 3 months (around 05/30/2025) for GYR/annual exam. 06/20/2025 3:00 PM EDT Office [facility] Neurology [address] 123 [facility] [address] [place] [address] Adelaida Goddard PA [address] [address] 3 mos headaches 06/26/2025 3:00 PM EDT Office Visit [facility] [address] [place] [phone] Kareen Chandra NP [address] [address] Botox/no pa needed/84 days/12 wks/consent good/med needs to be listed in Dynasil/buy/bill 08/15/2025 11:45 AM EST CPE - Comprehensive Physical Exam [facility] Medicine [address] [place] [phone] Kamilla Nicolas MD [address] [place] [phone] lpe 08/12/2024 08/21/2025 1:45 PM EST Office Visit [facility] [address] [phone] Taya Leblanc MD [address] [address] 5-6 months follow up 09/20/2025 4:00 PM EST Office Visit [facility] [address] [place] [phone] Kareen Chandra NP [address] [address] Botox/no pa needed/84 days/12 wks/consent good/med needs [...] sequela documented in this encounter Care Teams Consultant Technology Relationship Specialty Start Date End Date Kamilla Nicolas MD [address] [place] [phone] PCP - General Internal Medicine 01/13/23 Emely Farmer NP [address] [place] [address] PCP - Backup PCP 10/07/24 [facility] Assistants 10/29/24 12/21/24 DUMPER CARE TEAM YELLOW firer powerhouse 05/15/23 documented as of this encounter
--- OUTSIDE RECORDS SUMMARY | 2025-05-18 22:57 | XMS_ITS | Encounter Summary ---
Author Organization [facility] Address [address] [place] [address] Care Team Providers Care Waiter/Waitress Economy Class Name Role Phone Kamilla Nicolas MD Primary Care Provider Emely Farmer SALES TRAINER Unavailable [phone] [facility] Unavailable U navailable Reason for Visit * Reason Comments Med Change Request Encounter Details Date Type Department Care Team ([facility] st Contact Info) Description 02/25/2024 [facility] Neurology [address] [facility] [address] [place] [address] Asuncion Goddard PA 123 [facility] [address] [place] [address] Med Change Request Social History Tobacco Use [...] / family Once a week 02/25/2023 Attend bahai services Patient declined 02/25 Club Membership No [...] encounter Miscellaneous Notes * Telephone Encounter - Christa Rossi RN - 02/25/2024 1:45 PM EDT Name from pharmacy: ZOLMITRIPTAN 5 MG TABLET Pharmacy comment: Script Clarification:REPLACING SUMATRIPTAN? Per OV: Given her lack of response to Sumatriptan, I recommend switching her to Zolmitriptan 5 mg as neededat migraine onset. She is aware to repeat the dose in 2 hours if needed and to limit to 2 tablets in 24 hours. Script sent. documented in this encounter Plan of Treatment Upcoming Encounters Date Type Department Care Team (Latest Contact Info) Description 05/30/2025 11:30 AM EDT Office Visit [facility] [address] [place] [address] Cristine Villegas PA 123 [facility] 150 [place] [address] Return in about 3 months (around 05/30/2025) for GYR/annual exam. 06/20/2025 3:00 PM EDT Office Visit [facility] Neurology [address] [facility] 230 [place] [address] Adelaida Goddard PA 123 [facility] 230 [place] [address] 3 mos headaches 06/26/2025 3:00 PM EDT Office Visit [facility] [address] [place] [address] Kareen Chandra NP 123 [facility] 230 [place] [address] Botox/no pa needed/84 days/12 wks/consent good/med needs to be listed in epic/buy/bill 08/15/2025 11:45 AM EST CPE - Comprehensive Physical Exam [facility] [address] [place] [phone] Kamilla Nicolas MD [address] [place] [phone] lpe 08/12/2024 08/21/2025 1:45 PM EST Office Visit [facility] End[facility] 1 [facility] [address]rd [place] [address] Taya Leblanc MD 1 [facility] 3rd [place] [address] 5-6 months follow up 09/20/2025 4:00 PM EST Office Visit [facility] [address] [place] [address] Kareen Chandra, DENNIS 123 [facility] 230 [place] [address] Botox/no pa needed/84 days/12 wks/consent good/med needs [...] at . Any insurance accepted. Quit smoking resources-http://eStartAcademy.com.org documented as of this encounter Visit Diagnoses Diagnosis Migraine without aura and without status migrainosus, not intractable Migraine without aura, without mention of intractable migraine without mention of status migrainosus documented in this encounter Care Teams Waiter/Waitress Economy Class Relationship Specialty Start Date End Date Kamilla Nicolas MD [address] [place] [address] PCP - General Internal Medicine 01/13/23 Emely Farmer NP [address] [place] [address] PCP - Backup PCP 10/07/24 [facility] 10/29/24 12/21/24 PRINTED CIRCUIT BOARDS PINNER CARE TEAM YELLOW dipper machine operator 05/15/23 documented as of this encounter
--- OUTSIDE RECORDS SUMMARY | 2025-05-18 22:57 | XMS_ITS | Encounter Summary ---
Author Organization [facility] Address [address] [place] [address] Care Team Providers Care Route Salesman Name Role Phone Kamilla Nicolas MD Primary Care Provider Emely Farmer RECORDS MANAGER Unavailable [phone] [facility] Unavailable U navailable Encounter Details Date Type Department Care Team (Late st Contact Info) Description 09/02/2024 Orders Only [facility] Orthopedic Surgery-Entrance C [address] [place], [place] [phone] Gabe Norman, [address] [place] [address] Social History Tobacco Use Types Packs/Day Years [...] on file Emotionally Abused Not on file 08/12/2024 Physically Abused Not on file 08/12/2024 Sexually Abused Not on file 08/12/2024 Do you feel physically and emotionally safe where you currently live? I choose not to answer this question 08/12/2024 Social Connections Answer Date Recorded Phone Communication Twice a week 08/12/2024 Get together with friends / family Twice a week 08/12/2024 Attend lutheran services Never 2023 Club Membership No 08/12/2024 Club Attendance Never 08/12/2024 Marital Status Living with partner 08/12/2024 Financial Resource Strain Answer Date R ecorded Difficulty paying for basics Very hard How hard is it for you to pa y for utilities (electricity, gas, water)? Very hard 08/12/2024 Food Insecurity Answer Date Recorded Worry that food will run out Often true 07/2024 Inability to get food Often true 08/10/2024 Transportation Needs Answer Date Record ed Lacking transport to medical appts Yes 08/10/2024 Lacking transport to non-medical Yes 08/10/2024 Housing Stability Answer Date Recorded Unable to [...] Getting School Help Needed Not on file 08/12 How often do you get together with friends or re latives? 3 08/12/2024 Do you belong to any clubs o r organizations such as holiness groups, unions, athletic groups, or school groups? 2 How often do you attend meet ings of the clubs or organizations you belong to? 1 08/12/2024 Comments No Sex and Gender Information Value [...] Description 05/30/2025 11:30 AM EDT Office Visit [facility] [address] [place] [address] Cristine Villegas PA 123 [facility] 150 [place] [address] Return in about 3 months (around 05/30/2025) for GYR/annual exam. 06/20/2025 3:00 PM EDT Office Visit [facility] Neurology [address] [facility] 230 [place] [address] Adelaida Goddard PA 123 [facility] 230 [place] [address] 3 mos headaches 06/26/2025 3:00 PM EDT Office Visit [facility] [address] [place] [address] Kareen Chandra NP 123 [facility] 230 [place] [address] Botox/no pa needed/84 days/12 wks/consent good/med needs to be listed in epic/buy/bill 08/15/2025 11:45 AM EST CPE - Comprehensive Physical Exam [facility] [address] [place] [phone] Kamilla Nicolas MD [address] [place] [address] lpe 08/12/2024 08/21/2025 1:45 PM EST Office Visit [facility] [address] [place] [address] Taya Leblanc MD [address] [place] [address] 5-6 months follow up 09/20/2025 4:00 PM EST Office Visit [facility] [address] [place] [address] Kareen Chandra NP 123 [facility] 230 [place] [address] Botox/no pa needed/84 days/12 wks/consent good/med needs [...] at . Any insurance accepted. Quit smoking resources-http://makesAutoGenomics.org HEMOGLOBIN A1C % < 7 Result Component [...] is ideal. documented as of this encounter Visit Diagnoses Diagnosis Left ankle pain, unspecified chronicity documented in this encounter Care Teams Route Salesman Relationship Specialty Start Date End Date Kamilla Nicolas MD [address] [place] [address] PCP - General Internal Medicine 01/13/23 Emely Farmer NP [address] [place] [address] PCP - Backup PCP 10/07/24 [facility] 10/29/24 12/21/24 OPERATOR PREFINISH CARE TEAM YELLOW press set up 05/15/23 documented as of this encounter
--- OUTSIDE RECORDS SUMMARY | 2025-05-18 22:57 | XMS_ITS | Encounter Summary ---
Author Organization [facility] Address [address] [place] [address] Care Team Providers Care Overhead Crane Inspector Name Role Phone Kamilla Nicolas MD Primary Care Provider Emely Farmer CAFE ATTENDANT Unavailable [phone] [facility] Unavailable U navailable Encounter Details Date Type Department Care Team (Late st Contact Info) Description 12/23/2023 Telephone [facility]. CT Scan 5 [place] [address] Kamilla Nicolas MD [address] [place] [address] Social History Tobacco Use Types Packs/Day Years [...] / family Once a week 02/25/2023 Attend methodist services Patient declined 02/25 Club Membership No [...] encounter Miscellaneous Notes * Telephone Encounter - Mayuri He RN - 12/23/2023 12:00 PM EDT Noted. * Telephone Encounter - Sheila Juarez - 12/23/2023 11:57 AM EDT No Show / Cancellation Pull: good morning/afternoon, We attempted to reschedule the CT ,however the patient stated will call back. The order will be removed from [facility] 02/12/24. Thank you, Radiology Scheduling Dept. documented in this encounter Plan of Treatment Upcoming Encounters Date Type Department Care Team (Latest Contact Info) Description 05/30/2025 11:30 AM EDT Office Visit [facility] [address] [place] [address] Cristine Villegas PA 123 [facility] 150 [place] [address] Return in about 3 months (around 05/30/2025) for GYR/annual exam. 06/20/2025 3:00 PM EDT Office Visit [facility] Neurology [address] [facility] 230 [place] [address] Adelaida Goddard PA 123 [facility] 230 [place] [address] 3 mos headaches 06/26/2025 3:00 PM EDT Office Visit [facility] [address] [place] [address] Kareen Chandra NP 123 [facility] 230 [place] [address] Botox/no pa needed/84 days/12 wks/consent good/med needs to be listed in epic/buy/bill 08/15/2025 11:45 AM EST CPE - Comprehensive Physical Exam [facility] [address] [place] [phone] Kamilla Nicolas MD [address] [place] [phone] lpe 08/12/2024 08/21/2025 1:45 PM EST Office Visit [facility] [address] [place] [address] Taya Leblanc MD [address] [place] [address] 5-6 months follow up 09/20/2025 4:00 PM EST Office Visit [facility] [address] [place] [address] Kareen Chandra NP 123 [facility] 230 [place] [address] Botox/no pa needed/84 days/12 wks/consent good/med needs [...] at . Any insurance accepted. Quit smoking resources-http://Exercise.com.org documented as of this encounter Visit Diagnoses Not on filedocumented in this encounter Care Teams Overhead Crane Inspector Relationship Specialty Start Date End Date Kamilla Nicolas MD 1 [place] [address] PCP - General Internal Medicine 01/13/23 Emely Farmer NP [address] [place] [address] PCP - Backup PCP 10/07/24 Tico Armas [facility] Assistants 10/29/24 12/21/24 REED OR WIND INSTRUMENT TUNER CARE TEAM YELLOW diesel retrofit installer 05/15/23 documented as of this encounter
--- OUTSIDE RECORDS SUMMARY | 2025-05-18 22:57 | XMS_ITS | Clinical Summary ---
Author Organization [facility] Address [address] [place] [address] Care Team Providers Care Watch Guard Gate Name Role Phone Kamilla Nicolas Primary Care Provider [phone] Allergies Active Allergy Reactions Criticality Noted Date Comments Latex Rash 07/12/2020 Ibuprofen Unknown 07/12/2020 Prednisone Palpitations 07/12/2020 Medications * This document contains information received from the source organization and may not represent a complete record from that organization. HYDROcodone-jennifer taminophen (NORCO) 5-325 mg tablet Take 1 tablet by mouth every 6 hours as needed for pain. 10 tablet 0 Active Additional Information Patient not taking.Reported on 06/20/2021 QUEtiapine (SEROquel) 100 mg tablet 25 mg. 1 Active metFORMIN ER (GLUCOPHAGE XR) 500 mg tablet Take by mouth daily. 1 Active OXcarbazepine (TRILEPTAL) 300 mg tablet Take by mouth daily. Active topiramate (TOPAMAX) 50 mg tablet Take by mouth every 12 (twelve) hours. 1 Active hydrOXYzine (ATARAX) 50 mg tablet Take 100 mg by mouth 2 times a day as needed. anxiety 1 Active LORazepam (ATIVAN) 0.5 mg tablet Take 0.5 mg by mouth daily as needed. 1 Active cloNIDine (CATAPRES) 0.1 mg tablet TAKE 1 2 TABLETS BY MOUTH TWICE DAILY NEEDED FOR ANXIETY. 1 Active buPROPion XL (WELLBUTRIN XL) 150 mg tablet Take 300 mg by mouth daily. 1 Active atorvastatin (LIPITOR) 20 mg tablet Take by mouth daily. 1 Active albuterol (PROAIR HFA,VENTOLIN HFA) 90 mcg inhaler Inhale 2 puffs by mouth every 4 (four) hours. 1 Active etonogestreL (NEXPLANON) 68 mg implant Inject under the skin. Active gabapentin (NEURONTIN) 100 mg capsule TAKE 1 CAPSULE BY MOUTH EVERY NIGHT 1 Active Active Problems Problem Noted Date Diagnosed Date Anxiety 06/01/2021 Depressive disorder 06/01/2021 Migraine 06/01/2021 Posttraumatic stress disorder 06/01/2021 Women's annual routine gynecological examination 02/18/2021 Bipolar I disorder 10/03/2020 Uses contraception 10/03/2020 Prediabetes 04/30/2020 Tear of lateral meniscus of right knee, current 09/22/[address] 09/06/2019 Overview (02/18/2021): Left arm November 2018 Reactive airway disease 11/17/2016 Schizoaffective disorder 11/17/2016 At risk for apnea 08/21/2016 Right knee pain 07/28/2016 Morbid obesity 10/24/2015 PCOS (polycystic ovarian syndrome) 10/18/2015 Menorrhagia 01/11/2015 Pelvic pain in female 01/11/2015 IUD contraception 01/11/2015 Snoring 11/25/2013 Gastroesophageal reflux 11/25/2013 Asthma 11/25/2013 Morbid obesity 11/25/2013 Vaginal itching 07/04/2013 Exogenous obesity 07/04/2013 Acanthosis nigricans 07/04/2013 Oligomenorrhea 04/28/2011 Polycystic ovarian syndrome 04/28/2011 Family History Medical History Relation Name Comments Other Father Family History of obesity Other Maternal Grandmother Family history of Apnea /Family History of diabetes mellitus Relation Name Status Comments Father Maternal Grandmother Social History Tobacco Use Types Packs/Day Years [...] Orientation Bisexual 02/21/2022 8: 14 AM EDT Last Filed Vital Signs Vital Sign Reading Time Taken Comments Blood Pressure 155/102 07/26/2021 3:50 AM EST Pulse 100 07/26/2021 3:50 AM EST Temperature 37 C (98.6 F) 07/26/2021 3:50 AM EST Respiratory Rate 18 07/26/2021 3:50 AM EST Oxygen Saturation 97% 07/26/2021 3:50 AM EST Inhaled Oxygen Concentration - - Weight 199.6 kg (440 lb) 07/02/2021 8:45 PM EDT Height 175.3 cm (5' 9 ) 06/20/2021 10:12 AM EDT Body Mass Index 64.98 06/20/2021 10:12 AM EDT Plan of Treatment Health Maintenance Due Date Last Done Comments HIV Screening 1996 Varicella Vaccines (2 of 2 - 2-dose childhood series) 2000 05/29/1997 Alcohol/Substance Use Screening 08/31/2024 Depression Screening and Follow-Up 08/31/2024 Social Drivers of Health Michelle ual Screening 08/31/2024 Basic Metabolic Panel 10/20/2024 10/20/2023 , 07/26/2021, 07/02/2021, Additional history exists Pap Smear 10/29/2024 10/29/2021, 02/18/2021 COVID-19 Vaccine (2 - 2024-2 6 season) 2025 08/10/2023 Influenza Vaccine (#1) 2025 , 07/18/2019, 07/01/2016 DTaP,Tdap,and Td Vaccines (7 - Td or Tdap) 10/06/2032 10/06/2022, 12/02/2000, 12/19/1997, Additional history exists RSV Vaccine (60+ years old a nd patients) (1 - 1-dose 75+ series) 2071 Hepatitis B Vaccines Completed 02/22/1997, 1996, 1996 Pneumococcal Vaccine: Pediat thomas (0-5 Years) and At-Risk Patients (6-50 Years) Completed 02/25/2023 Hepatitis C Screening Completed 10/20/2023, 024 Procedures * Due to [place] All-Scrap law, this organization might not be sharing negative HIV tests. Procedure Name Priority Date/Time Associated Diagnosis Comments BASIC METABOLIC PANEL STAT 07/26/2021 4:07 AM EST [facility] NO HPV Routine 02/18/2021 2:15 PM EDT Screening for malignant neoplasm of cervix from Last 3 Months or Most Recently Relevant to Health Maintenance Results * Due to [place] All-Scrap law, this organization might not be sharing negative HIV tests. * (ABNORMAL) Basic Metabolic Panel (07/26/2021 4:07 AM EST) NA 139 136 - 145 mmol/L 07/26/2021 4:49 AM EST [facility] K 3.7 3.5 - 5.3 mmol/L 07/26/2021 4:49 AM EST [facility] Cl 113(H) 98 - 107 mmol/L 07/26/2021 4:49 AM EST [facility] CO2 20(L) 22 - 30 mmol/L 07/26/2021 4:49 AM EST [facility] BUN 13 7 - 18 mg/dL 07/26/2021 4:49 AM EST [facility] Creatinine 1.01 0.60 - 1.30 mg/dL 07/26/2021 4:49 AM EST [facility] Glucose 141(H) 70 - 99 mg/dL 07/26/2021 4:49 AM EST [facility] Calcium 9.4 8.5 - 10.1 mg/dL 07/26/2021 4:49 AM EST [facility] Anion Gap 6 5 - 15 07/26/2021 4:49 AM EST [facility] eGFR Non- 77(L) >=90 mL/min/BS A 07/26/2021 4:49 AM EST [facility] eGFR 89(L) >=90 mL/min/BS A 07/26/2021 4:49 AM EST [facility] Comment: Units = mL/min/1.73 m2 Glomerular Filtration Rate (GFR) is estimated based on the CKD-EPI Creatinine Equation (2009). Stage Description GFR 1 Normal >=90 mL/min/BSA 2 Mildly decreased GFR 60-89 mL/min/BSA 3 Moderately decreased GFR 30-59 mL/min/BSA 4 Severely decreased GFR 15-29 mL/min/BSA 5 Kidney Failure <15 mL/min/BSA Blood Structure of peripheral vein / Unknown Venipuncture / Unknown 07/26/2021 4:07 AM EST 07/26/2021 4:20 AM EST us Protocol Weiss Ed Treatment MD LAB BLOOD ORDERAB LES Final Result [facility] [address] [place] [address], * [facility] no HPV (02/18/2021 2:15 PM EDT) [facility] Thinprep TIS PAP See Below [employer] [facility] Comment: THINPREP TIS PAP CLINICAL INFORMATION: None given LMP: NEXPLANON PREV. PAP: NONE GIVEN PREV. BX: NONE GIVEN SOURCE: Cervix, Endocervix STATEMENT OF ADEQUACY: Satisfactory for evaluation. Endocervical/transformation zone component absent. INTERPRETATION/RESULT: Negative for intraepithelial lesion or malignancy. COMMENT: This Pap test has been evaluated with computer assisted technology. CONSULTANT INTERN: KAIDEN CT(ASCP) CT screening location: [place] [address] REVIEW CONSULTANT INTERN: CAREY CT(ASCP) CT screening location: [place] [address] EXPLANATORY NOTE: The Pap is a screening test for cervical cancer. It is not a diagnostic test and is subject to false negative and false positive results. It is most reliable when a satisfactory sample, regularly obtained, is submitted with relevant clinical findings and history, and when the Pap result is evaluated along with historic and current clinical information. Brushing Cervix uteri structure / Unknown 02/18/2021 2:15 PM EDT Darryn Hanna MD LAB [facility] ORDER GABY Final Result [facility] [address] [facility] 3rd Floor, [place] [address], [facility] [address] [place] [address] from Last 3 Months or Most Recently Relevant to Health Maintenance Insurance [place] [employer] [facility] Care Teams Watch Guard Gate Relationship Specialty Start Date End Date Kamilla Nicolas DO [address] [place] [phone] PCP - General 08/19/23
--- OUTSIDE RECORDS SUMMARY | 2025-05-18 22:57 | XMS_ITS | Encounter Summary ---
Author Organization [facility] Address [address] [place] [address] Care Team Providers Care Journeyman Level Acoustic Analyst Name Role Phone Kamilla Nicolas MD Primary Care Provider Emely Farmer APPLIED ANTHROPOLOGIST Unavailable [phone] [facility] Unavailable U navailable Reason for Visit * Reason Comments Labs/orders Encounter Details Date Type Department Care Team ([facility] st Contact Info) Description 12/09/2024 Telephone [facility]. Mammography [address] [place] [address] Kamilla Nicolas MD [address] [place] [address] Labs/orders Social History Tobacco Use Types Packs/Day Years [...] Get together with friends / family Patient decli agustin 10/11/2024 Attend islam services Patient declined 10/11 Club Membership Patient [...] any clubs o r organizations such as sikhism groups, unions, athletic groups, or school groups? [...] encounter Miscellaneous Notes * Telephone Encounter - Kamilla Nicolas MD - 12/12/2024 8:20 AM EDT Please schedule her for breast imaging there . Thank you * Telephone Encounter - Linn Castillo - 12/12/2024 7:29 AM EDT I do not facilitate anything other than diagnostic breast imaging, so I would not know if the otherimaging can be done sooner. And [place] is the only location diagnostic breast imaging is done, it's not a choice. Thank you Linn * Telephone Encounter - Kamilla Nicolas MD - 12/09/2024 6:41 PM EDT That should be fine for the breast US as long as her upper extremity US can be done faster and within the time frame [place] location is ok with her * Telephone Encounter - Linn Castillo - 12/09/2024 3:30 PM EDT Good afternoon, We can not accommodate this breast ultrasound order until the middle of January, and it is solely donein [place]. Would you like me to proceed with scheduling, or would you like the order external documented in this encounter Plan of Treatment Upcoming Encounters Date Type Department Care Team (Latest Contact Info) Description 05/30/2025 11:30 AM EDT Office Visit [facility] [address] [place] [address] Cristine Villegas PA 123 [facility] 150 [place] [address] Return in about 3 months (around 05/30/2025) for GYR/annual exam. 06/20/2025 3:00 PM EDT Office Visit [facility] [address] [phone] Adelaida Goddard PA [address] [address] 3 mos headaches 06/26/2025 3:00 PM EDT Office Visit [facility] [address] [place] [phone] Kareen Chandra NP [address] [address] Botox/no pa needed/84 days/12 wks/consent good/med needs to be listed in epic/buy/bill 08/15/2025 11:45 AM EST CPE - Comprehensive Physical Exam [facility] [address] [place] [phone] Kamilla Nicolas MD [address] [place] [phone] lpe 08/12/2024 08/21/2025 1:45 PM EST Office Visit [facility] [address] [phone] Taya Leblanc MD [address] [address] 5-6 months follow up 09/20/2025 4:00 PM EST Office Visit [facility] [address] [place] [phone] Kareen Chandra NP [address] [address] Botox/no pa needed/84 days/12 wks/consent good/med needs [...] at . Any insurance accepted. Quit smoking resources-http://makesIngenic.org HEMOGLOBIN A1C % < 7 Result Component [...] on filedocumented in this encounter Care Teams Journeyman Level Acoustic Analyst Relationship Specialty Start Date End Date Kamilla Nicolas MD [address] [place] [address] PCP - General Internal Medicine 01/13/23 Emely Farmer NP [address] [place] [address] PCP - Backup PCP 10/07/24 iTco Armas [facility] Health Assistants 10/29/24 12/21/24 AUTOMOBILE MECHANIC HELPER CARE TEAM YELLOW molecular technologist 05/15/23 documented as of this encounter
--- OUTSIDE RECORDS SUMMARY | 2025-05-18 22:57 | XMS_ITS | Encounter Summary ---
Author Organization [facility] Address [address] [place] [address] Care Team Providers Care Operator Coating Furnace Name Role Phone Kamilla Nicolas MD Primary Care Provider [phone] Emely Farmer CLIP LOADING MACHINE FEEDER Unavailable [phone] Encounter Details Date Type Department Care Team ([facility] st Contact Info) Description 02/27/2025 Orders Only [facility] [address] [phone] Taya Leblanc MD [address] [address] Social History Tobacco Use Types Packs/Day Years Used Date Smoking Tobacco: Some Days Cigarettes Smokeless Tobacco: Never Comments:Currently vapes rfandy otine Has cut down to 60 puffs [...] / family Patient declcarter agustin 10/11/2024 Attend anglican services Patient declined 10/11 Club Membership Patient [...] any clubs o r organizations such as pentecostalism groups, unions, athletic groups, or school groups? [...] Description 05/30/2025 11:30 AM EDT Office Visit [facility] [address] [place] [address] Cristine Villegas PA 123 [facility] 150 [place] [address] Return in about 3 months (around 05/30/2025) for GYR/annual exam. 06/20/2025 3:00 PM EDT Office Visit [facility] [address] [facility] 230 [place] [address] Adelaida Goddard PA 123 [facility] 230 [place] [address] 3 mos headaches 06/26/2025 3:00 PM EDT Office Visit [facility] [address] [place] [address] Kareen Chandra NP 123 [facility] 230 [place] [address] Botox/no pa needed/84 days/12 wks/consent good/med needs to be listed in epic/buy/bill 08/15/2025 11:45 AM EST CPE - Comprehensive Physical Exam [facility] [address] [place] [phone] Kamilla Nicolas MD [address] [place] [address] lpe 08/12/2024 08/21/2025 1:45 PM EST Office Visit [facility] [address] [place] [phone] [facility]anc MD 1 [facility] [address] [address] 5-6 months follow up 09/20/2025 4:00 PM EST Office Visit [facility] [address] [place] [address] Kareen Chandra NP 123 [facility] 230 [place] [address] Botox/no pa needed/84 days/12 wks/consent good/med needs [...] at . Any insurance accepted. Quit smoking resources-http://makesSmart Museum.org HEMOGLOBIN A1C % < 7 Result Component [...] Date/Time Associated Diagnosis Comments BASIC METABOLIC PANEL WITH (GFR) Routine 02/27/2025 9:42 AM EDT PCOS (polycystic ovarian syndrome) documented in this encounter Results * (ABNORMAL) BASIC METABOLIC PANEL WITH (GFR) (02/27/2025 9:42 AM EDT) Glucose 122(H) 65 - 99 mg/dL [facility] Comment: Fasting reference interval For someone without known diabetes, a glucose value between 100 and 125 mg/dL is consistent with prediabetes and should be confirmed with a follow-up test. Urea Nitrogen Blood (BUN) 14 7 - 25 mg/dL [facility] Creatinine 0.82 0.50 - 0.96 mg/dL [facility] EGFR 100 > OR = 60 mL/min/1. 73m2 [facility] BUN/Creatinine Ratio SEE NOTE: 6 - 22 (calc) [facility] Comment: Not Reported: BUN and Creatinine are within reference range. Sodium 138 135 - 146 mmol/L [facility] Potassium 3.9 3.5 - 5.3 mmol/L [facility] Chloride 108 98 - 110 mmol/L [facility] Carbon dioxide 22 20 - 32 mmol/L [facility] Calcium 9.2 8.6 - 10.2 mg/dL [facility] 02/27/2025 9:42 AM EDT 02/28/2025 2:35 AM EDT Narrative [facility] - 02/28/2025 10:07 AM EDT Please note that this estimated [...] needs for GFR calculation. Resulting Agency Comment [id number] us Taya Leblanc MD LABORATORY Final Resu lt [facility] [address] [place] [address] documented in this encounter Visit Diagnoses Diagnosis PCOS (polycystic ovarian syndrome) Polycystic ovaries documented in this encounter Care Teams Operator Coating Furnace Relationship Specialty Start Date End Date Kamilla Nicolas MD [address] [place] [address] PCP - General Internal Medicine 01/13/23 Emely Farmer NP [address] [place] [address] PCP - Backup PCP 10/07/24 JAVASCRIPT DEVELOPER CARE TEAM YELLOW oracle solutions architect 05/15/23 documented as of this encounter
--- OUTSIDE RECORDS SUMMARY | 2025-05-18 22:57 | XMS_ITS | Encounter Summary ---
Author Organization [facility] Address [address] [place] [address] Care Team Providers Care Contamination Consultant Name Role Phone Kamilla Nicolas MD Primary Care Provider [phone] Emely Farmer PLAN EXAMINER Unavailable [phone] [facility] Unavailable U navailable Reason for Visit * Reason Comments Med Change Request Encounter Details Date Type Department Care Team ([facility] st Contact Info) Description 12/13/2024 [facility] [address] [facility] [address] [place] [address] Asuncion Goddard PA 123 [facility] [address] [place] [address] Med Change Request Social History Tobacco Use [...] / family Patient declcarter agustin 10/11/2024 Attend taoist services Patient declined 10/11 Club Membership Patient [...] any clubs o r organizations such as protestant groups, unions, athletic groups, or school groups? [...] AM EDT Office Visit [facility] [address] [place] [address] Cristine Villegas PA 123 [facility] 150 [place] [address] Return in about 3 months (around 05/30/2025) for GYR/annual exam. 06/20/2025 3:00 PM EDT Office Visit [facility] [address] [facility] 230 [place] [address] Adelaida Goddard PA 123 [facility] 230 [place] [address] 3 mos headaches 06/26/2025 3:00 PM EDT Office Visit [facility] [address] [place] [address] Kareen Chandra NP 123 [facility] 230 [place] [address] Botox/no pa needed/84 days/12 wks/consent good/med needs to be listed in epic/buy/bill 08/15/2025 11:45 AM EST CPE - Comprehensive Physical Exam [facility] [address] [place] [phone] Kamilla Nicolas MD [address] [place] [phone] lpe 08/12/2024 08/21/2025 1:45 PM EST Office Visit [facility] [address] 1 [facility] [address]rd [place] [address] Taya Leblanc MD [address] [place] [address] 5-6 months follow up 09/20/2025 4:00 PM EST Office Visit [facility] [address] [place] [address] Kareen Chandra, PLAN EXAMINER 123 [facility] [address] [place] [address] Botox/no pa needed/84 days/12 wks/consent good/med needs [...] at . Any insurance accepted. Quit smoking resources-http://[employer].org HEMOGLOBIN A1C % < 7 Result Component [...] migrainosus documented in this encounter Care Teams Contamination Consultant Relationship Specialty Start Date End Date Kamilla Nicolas MD [address] [place] [address] PCP - General Internal Medicine 01/13/23 Emely Farmer NP [address] [place] [address] PCP - Backup PCP 10/07/24 Tico Armas [facility] Assistants 10/29/24 12/21/24 GEOLOGY INSTRUCTOR CARE TEAM YELLOW photographic enlarger operator 05/15/23 documented as of this encounter
--- OUTSIDE RECORDS SUMMARY | 2025-05-18 22:57 | XMS_ITS | Encounter Summary ---
Author Organization [facility] Address [address] [place] [address] Care Team Providers Care Flour Tester Name Role Phone Kamilla Nicolas MD Primary Care Provider Emely Farmer CHIEF HUMAN RESOURCES OFFICER Unavailable [phone] Encounter Details Date Type Department Care Team (Late st Contact Info) Description 04/07/2025 Results Follow-Up [facility] [address] [place] [phone] Kamilla Nicolas MD [address] [place] [phone] US BREAST LIMITED, DIAGNOSTIC - LEFT Social History Tobacco Use Types Packs/Day Years [...] / family Patient declcarter agustin 10/11/2024 Attend hindu services Patient declined 10/11 Club Membership Patient [...] any clubs o r organizations such as zoroastrian groups, unions, athletic groups, or school groups? [...] Description 05/30/2025 11:30 AM EDT Office Visit [facility] [address] [place] [address] Cristine Villegas PA 123 [facility] 150 [place] [address] Return in about 3 months (around 05/30/2025) for GYR/annual exam. 06/20/2025 3:00 PM EDT Office Visit [facility] [address] [facility] [address] [place] [address] Adelaida Goddard PA 123 [facility] 230 [place] [address] 3 mos headaches 06/26/2025 3:00 PM EDT Office Visit [facility] [address] [place] [address] Kareen Chandra NP 123 [facility] [address] [place] [address] Botox/no pa needed/84 days/12 wks/consent good/med needs to be listed in epic/buy/bill 08/15/2025 11:45 AM EST CPE - Comprehensive Physical Exam [facility] [address] [place] [phone] Kamilla Nicolas MD [address] [place] [phone] lpe 08/12/2024 08/21/2025 1:45 PM EST Office Visit [facility] [address] 1 [facility] [address] [place] [phone] Taya Leblanc MD [address] [address] 5-6 months follow up 09/20/2025 4:00 PM EST Office Visit [facility] [address] [place] [address] Kareen Chandra NP 123 [facility] 230 [place] [address] Botox/no pa needed/84 days/12 wks/consent good/med needs [...] at . Any insurance accepted. Quit smoking resources-http://[email or web address] Bioscience.org HEMOGLOBIN A1C % < 7 Result Component [...] on filedocumented in this encounter Care Teams Flour Tester Relationship Specialty Start Date End Date Kamilla Nicolas MD [address] [place] [phone] PCP - General Internal Medicine 01/13/23 Emely Farmer NP [address] [place] [address] PCP - Backup PCP 10/07/24 PROGRAM MANAGER SLP CARE TEAM YELLOW cigar packing examiner 05/15/23 documented as of this encounter
--- OUTSIDE RECORDS SUMMARY | 2025-05-18 22:57 | XMS_ITS | Encounter Summary ---
Author Organization [facility] Address [address] [place] [address] Care Team Providers Care Infantry Operations Specialist Name Role Phone Kamilla Nicolas MD Primary Care Provider [phone] Emely Farmer VOCATIONAL REHAB CONSULTANT Unavailable [phone] [facility]available [facility] Encounter Details Date Type Department Care Team (Late st Contact Info) Description 01/24/2023 Orders Only [facility] [address] [place] [phone] Kamilla Nicolas MD [address] [place] [address] Social History Tobacco Use Types Packs/Day Years [...] Description 05/30/2025 11:30 AM EDT Office Visit [address] [phone] Cristine Villegas PA 123 [facility] [address] [place] [address] Return in about 3 months (around 05/30/2025) for GYR/annual exam. 06/20/2025 3:00 PM EDT Office Visit [facility] Neurology [address] 123 [facility] 230 [place] [address] Adelaida Goddard PA 123 [facility] [address] [place] [address] 3 mos headaches 06/26/2025 3:00 PM EDT Office Visit [facility] [address] [place] [phone] Kareen Chandra VOCATIONAL REHAB CONSULTANT [address] [address] Botox/no pa needed/84 days/12 wks/consent good/med needs to be listed in epic/buy/bill 08/15/2025 11:45 AM EST CPE - Comprehensive Physical Exam [facility] [address] [place] [phone] Kamilla Nicolas MD [address] [place] [phone] lpe 08/12/2024 08/21/2025 1:45 PM EST [facility] [address] [phone] Taya Leblanc MD [address] [address] 5-6 months follow up 09/20/2025 4:00 PM EST Office Visit [facility] [address] [place] [phone] Kareen Chandra VOCATIONAL REHAB CONSULTANT [address] [place] [address] Botox/no pa needed/84 days/12 wks/consent good/med needs [...] and nuts. documented as of this encounter Procedures Procedure Name Priority Date/Time Associated Diagnosis Comments FSH AND LH Routine 01/24/2023 11:50 AM EDT Irregular periods/menstrual cycles HCG, TOTAL, QL Routine 01/24/2023 11:50 AM EDT PCOS (polycystic ovarian syndrome) THYROID STIMULATING HORMONE (TSH) WITH FREE T4 REFLEX, SERUM Routine 01/24/2023 11:50 AM EDT Irregular periods/menstrual cycles PROLACTIN Routine 01/24/2023 11:50 AM EDT Irregular periods/menstrual cycles HEMOGLOBIN A1C Routine 01/24/2023 11:50 AM EDT Prediabetes VITAMIN B12 (CYANOCOBALAMIN), SERUM Routine 01/24/2023 11:50 AM EDT Prediabetes ALBUMIN (MICROALBUMIN), RANDOM URINE, WITH CREATININE Routine 01/24/2023 11:50 AM EDT Prediabetes LIPID PANEL WITH REFLEX TO DIRECT LDL Routine 01/24/2023 11:50 AM EDT Prediabetes BASIC METABOLIC PANEL WITH (GFR) Routine 01/24/2023 11:50 AM EDT Prediabetes documented in this encounter Results * (ABNORMAL) HEMOGLOBIN A1C (01/24/2023 11:50 AM EDT) Hemoglobin A1C 5.9(H) <5.7 % of total Hgb [facility] [...] of diabetes for children. Estimated Average Glucose 133 mg/dL (calc) [facility] 01/24/2023 11:5 0 AM EDT 01/24/2023 9:43 PM EDT Narrative Resulting Agency Comment [id number] us Kamilla Nicolas MD LABORATORY Final Result [facility] [address] [place] [address] * (ABNORMAL) LIPID PANEL WITH REFLEX TO DIRECT LDL (01/24/2023 11:50 AM EDT) Cholesterol 194 <200 mg/dL [facility] HDL Cholesterol 47(L) > OR = 50 mg/dL [facility] Triglyceride 219(H) <150 mg/dL [facility] Comment: If a non-fasting specimen was collected, consider repeat triglyceride testing on a fasting specimen if clinically indicated. Duncan et al. J. of Clin. Lipidol. 2015;9:129-169. LDL Cholesterol 113(H) mg/dL (calc) [facility] Comment: Reference range: <100 Desirable range <100 mg/dL for primary prevention; <70 mg/dL for patients with CHD or diabetic patients with > or = 2 CHD risk factors. LDL-C is now calculated using the Cuba-Jerez calculation, which is a validated novel method providing better accuracy than the Friedewald equation in the estimation of LDL-C. Cuba SS et al. IRVING. 2013;310(19): 9968-6733 (http://education.CabbyGo/faq/CKS244) CHOL/HDL Ratio 4.1 <5.0 (calc) [facility] Cholesterol Non-HDL 147(H) <130 mg/dL (calc) [facility] Comment: For patients with diabetes plus 1 major ASCVD risk factor, treating to a non-HDL-C goal of <100 mg/dL (LDL-C of <70 mg/dL) is considered a therapeutic option. 01/24/2023 11:5 0 AM EDT 01/24/2023 9:43 PM EDT Narrative Resulting Agency Comment [id number] Kamilla Nicolas MD LABORATORY Final Result Performing Organization Address City/State/[facility] Co de Phone Number [facility] [address] [place] [address] * ALBUMIN (MICROALBUMIN), RANDOM URINE, WITH CREATININE (01/24/2023 11:50 AM EDT) Creatinine (Urine) 214 20 - 275 mg/dL [facility] Albumin (Urine) 0.6 mg/dL [facility] Comment: Reference Range Not established Albumin/Creatinine (Urine) 3 <30 mcg/mg creat [facility] Comment: The ADA defines abnormalities in albumin excretion as follows: Albuminuria Category Result (mcg/mg creatinine) Normal to Mildly increased <30 Moderately increased 30-299 Severely increased > OR = 300 The ADA recommends that at least two of three specimens collected within a 3-6 month period be abnormal before considering a patient to be within a diagnostic category. 01/24/2023 11:5 0 AM EDT 01/24/2023 9:43 PM EDT Narrative Resulting Agency Comment [id number] Kamilla Nicolas MD LABORATORY Final Result Performing Organization Address City/[facility]/ZIP Co de Phone Number [facility] [address] [place] [address] * (ABNORMAL) BASIC METABOLIC PANEL WITH (GFR) (01/24/2023 11:50 AM EDT) Glucose 110(H) 65 - 99 mg/dL [facility] Comment: Fasting reference interval For someone without known diabetes, a glucose value between 100 and 125 mg/dL is consistent with prediabetes and should be confirmed with a follow-up test. Urea Nitrogen Blood (BUN) 14 7 - 25 mg/dL [facility] Creatinine 0.90 0.50 - 0.96 mg/dL [facility] EGFR 90 > OR = 60 mL/min/1. 73m2 [facility] Comment: The eGFR is based on the CKD-EPI 2020 equation. To calculate the new eGFR from a previous Creatinine or Cystatin C result, go to https://www.kidney.org/professionals/ kdoqi/gfr%5Fcalculator BUN/Creatinine Ratio NOT APPLICABLE 6 - 22 (calc) [facility] Sodium 138 135 - 146 mmol/L [facility] Potassium 4.2 3.5 - 5.3 mmol/L [facility] Chloride 104 98 - 110 mmol/L [facility] Carbon dioxide 24 20 - 32 mmol/L [facility] Calcium 9.6 8.6 - 10.2 mg/dL [facility] 01/24/2023 11:5 0 AM EDT 01/24/2023 9:43 PM EDT Narrative [facility] - 01/25/2023 5:21 AM EDT Please note that this estimated [...] needs for GFR calculation. Resulting Agency Comment [id number] Kamilla Nicolas MD LABORATORY Final Result Performing Organization Address City/[facility]/ZIP Co de Phone Number [facility] [address] [place] [address] * VITAMIN B12 (CYANOCOBALAMIN), SERUM (01/24/2023 11:50 AM EDT) Vitamin B12 (Cobalamins) 290 200 - 1100 pg/mL [facility] Comment: Please Note: Although the reference range for vitamin B12 is 200-1100 pg/mL, it has been reported that between 5 and 10% of patients with values between 200 and 400 pg/mL may experience neuropsychiatric and hematologic abnormalities due to occult B12 deficiency; less than 1% of patients with values above 400 pg/mL will have symptoms. 01/24/2023 11:5 0 AM EDT 01/24/2023 9:43 PM EDT Narrative Resulting Agency Comment [id number] us Kamilla Nicolas MD LABORATORY Final Result Performing Organization Address [facility] de Phone Number [facility] [address] [place] [address] * (ABNORMAL) PROLACTIN (01/24/2023 11:50 AM EDT) Prolactin 39.2(H) ng/mL [facility] Comment: Reference Range Females Non- 3.0-30.0 10.0-209.0 Postmenopausal 2.0-20.0 01/24/2023 11:5 0 AM EDT 01/24/2023 9:43 PM EDT Narrative Resulting Agency Comment [id number] us Kamilla Nicolas MD LAB SAME DAY RESULT Final Resul t Performing Organization Address [facility] de Phone Number [facility] [address] [place] [address] * THYROID STIMULATING HORMONE (TSH) WITH FREE T4 REFLEX, SERUM (01/24/2023 11:50 AM EDT) TSH 1.92 mIU/L [facility] Comment: Reference Range > or = 20 Years 0.40-4.50 Ranges First trimester 0.26-2.66 Second trimester 0.55-2.73 Third trimester 0.43-2.91 01/24/2023 11:5 0 AM EDT 01/24/2023 9:43 PM EDT Narrative Resulting Agency Comment [id number] us Kamilla Nicolas MD LABORATORY Final Result [facility] [address] [place] [address] * HCG, TOTAL, QL (01/24/2023 11:50 AM EDT) HCG, Qualitative (Screen) NEGATIVE [facility] Comment: Reference Range Non-: Negative : Positive 01/24/2023 11:5 0 AM EDT 01/24/2023 9:43 PM EDT Narrative Resulting Agency Comment [id number] us Kamilla Nicolas MD LAB SAME DAY RESULT Final Resul t Performing Organization Address [facility] Co de Phone Number [facility] [address] [place] [address] * FSH AND LH (01/24/2023 11:50 AM EDT) FSH 3.2 mIU/mL [facility] Comment: Reference Range Follicular Phase 2.5-10.2 Mid-cycle Peak 3.1-17.7 Luteal Phase 1.5- 9.1 Postmenopausal 23.0-116.3 Luteinizing Hormone (LH) 2.6 mIU/mL [facility] Comment: Reference Range Follicular Phase 1.9-12.5 Mid-Cycle Peak 8.7-76.3 Luteal Phase 0.5-16.9 Postmenopausal 10.0-54.7 01/24/2023 11:5 0 AM EDT 01/24/2023 9:43 PM EDT Narrative Resulting Agency Comment [id number] us Kamilla Nicolas MD LABORATORY Final Result Performing Organization Address City/[facility] Co de Phone Number [facility] [address] [place] [address] documented in this encounter Visit Diagnoses Diagnosis Irregular periods/menstrual cycles Irregular menstrual cycle PCOS (polycystic ovarian syndrome) Polycystic ovaries Prediabetes Other abnormal glucose documented in this encounter Care Teams Infantry Operations Specialist Relationship Specialty Start Date End Date Kamilla Nicolas MD [address] [place] [address] PCP - General Internal Medicine 01/13/23 Emely Farmer NP [address] [place] [address] PCP - Backup [facility] 12/21/24 SHAFT TENDER CARE TEAM YELLOW sales service rep 05/15/23 documented as of this encounter
--- OUTSIDE RECORDS SUMMARY | 2025-05-18 22:57 | XMS_ITS | Encounter Summary ---
Author Organization [facility] Address [address] [place] [address] Care Team Providers Care Canadian Bacon Tier Name Role Phone Kamilla Nicolas MD Primary Care Provider Emely Farmer HOSPITALITY AIDE Unavailable [phone] [facility] Unavailable U navailable Encounter Details Date Type Department Care Team (Late st Contact Info) Description 04/07/2024 Orders Only [facility] [address] [place] [phone] Kamilla Nicolas MD [address] [place] [address] Social History Tobacco Use Types Packs/Day Years [...] / family Once a week 02/25/2023 Attend episcopal services Patient declined 02/25 Club Membership No [...] Description 05/30/2025 11:30 AM EDT Office Visit [facility] [address] [place] [phone] Cristine Villegas, ARIE 123 [facility] [address] [place] [address] Return in about 3 months (around 05/30/2025) for GYR/annual exam. 06/20/2025 3:00 PM EDT Office Visit [facility] Neurology [address] [phone] Adelaida Goddard PA [address] [address] 3 mos headaches 06/26/2025 3:00 PM EDT Office Visit [facility] [address] [place] [phone] Kareen Chandra NP [address] [address] Botox/no pa needed/84 days/12 wks/consent good/med needs to be listed in epic/buy/bill 08/15/2025 11:45 AM EST CPE - Comprehensive Physical Exam [facility] [address] [place] [phone] Kamilla Nicolas MD [address] [place] [phone] lpe 08/12/2024 08/21/2025 1:45 PM EST Office Visit [facility] [address] [phone] Taya Leblanc MD [address] [address] 5-6 months follow up 09/20/2025 4:00 PM EST Office Visit [facility] [address] [place] [phone] Kareen Chandra NP [address] [address] Botox/no pa needed/84 days/12 wks/consent good/med needs [...] at . Any insurance accepted. Quit smoking resources-[email or web address] documented as of this encounter Procedures Procedure Name Priority Date/Time Associated Diagnosis Comments LIPID PANEL WITH REFLEX TO DIRECT LDL Routine 04/07/2024 11:10 AM EDT High cholesterol documented in this encounter Results * (ABNORMAL) LIPID PANEL WITH REFLEX TO DIRECT LDL (04/07/2024 11:10 AM EDT) Cholesterol 160 <200 mg/dL [facility] HDL Cholesterol 41(L) > OR = 50 mg/dL [facility] Triglyceride 166(H) <150 mg/dL [facility] LDL Cholesterol 93 mg/dL (calc) [facility] Comment: Reference range: [...] LDL-C. Cuba SS et al. IRVING. 2013;310(19): 8206-0378 (http://education.Tykoon/faq/RHY295) CHOL/HDL Ratio 3.9 <5.0 (calc) [facility] Cholesterol Non-HDL 119 <130 mg/dL (calc) [facility] Comment: For patients with diabetes plus 1 major ASCVD risk factor, treating to a non-HDL-C goal of <100 mg/dL (LDL-C of <70 mg/dL) is considered a therapeutic option. 04/07/2024 11:1 0 AM EDT 04/07/2024 12:56 PM EDT Narrative Resulting Agency Comment [id number] Kamilla Nicolas MD LABORATORY Final Result Performing Organization Address City/State[facility] Co de Phone Number [facility] [address] [place] [address] documented in this encounter Visit Diagnoses Diagnosis High cholesterol Pure hypercholesterolemia documented in this encounter Care Teams Canadian Bacon Tier Relationship Specialty Start Date End Date Kamilla Nicolas MD [address] [place] [phone] PCP - General Internal Medicine 01/13/23 Emely Farmer NP [address] [place] [address] PCP - Backup PCP 2/7/25 Chanda [facility] 10/29/24 12/21/24 HEMATOLOGIST CARE TEAM YELLOW dye blender 05/15/23 documented as of this encounter
--- OUTSIDE RECORDS SUMMARY | 2025-05-18 22:57 | XMS_ITS | Encounter Summary ---
Author Organization [facility] Address [address] [place] [address] Care Team Providers Care Lip Reading Teacher Name Role Phone Kamilla Nicolas MD Primary Care Provider Emely Farmer DOPE MAINTENANCE WORKER Unavailable [phone] [facility] Unavailable U navailable Encounter Details Date Type Department Care Team (Late st Contact Info) Description 11/02/2023 Orders Only [facility] [address] [place] [phone] Kamilla Nicolas MD [address] [place] [address] Social History Tobacco Use Types Packs/Day Years [...] / family Once a week 02/25/2023 Attend evangelical services Patient declined 02/25 Club Membership No [...] Miscellaneous Notes * Result Encounter Note - Kamilla Nicolas MD - 11/02/2023 3:32 PM EST Please see TE 11/08/2023 documented in this encounter Plan of Treatment Upcoming Encounters Date Type Department Care Team (Latest Contact Info) Description 05/30/2025 11:30 AM EDT Office Visit [facility] [address] [place] [address] Cristine Villegas PA [address] [place] [phone] Return in about 3 months (around 05/30/2025) for GYR/annual exam. 06/20/2025 3:00 PM EDT Office Visit [facility] Neurology [address] [phone] Adelaida Goddard PA [address] [address] 3 mos headaches 06/26/2025 3:00 PM EDT Office Visit [facility] [address] [place] [phone] Kareen Chandra NP [address] [address] Botox/no pa needed/84 days/12 wks/consent good/med needs to be listed in epic/buy/bill 08/15/2025 11:45 AM EST CPE - Comprehensive Physical Exam [facility] [address] [place] [phone] Kamilla Nicolas MD [address] [place] [address] lpe 08/12/2024 08/21/2025 1:45 PM EST Office Visit [facility] [address] 1 [facility] [address] [phone] Taya Leblanc MD [address] [address] 5-6 months follow up 09/20/2025 4:00 PM EST Office Visit [facility] [address] [place] [phone] Kareen Chandra NP [address] [address] Botox/no pa needed/84 days/12 wks/consent good/med needs [...] at . Any insurance accepted. Quit smoking resources-[email or web address] documented as of this encounter Procedures Procedure Name Priority Date/Time Associated Diagnosis Comments URINALYSIS DIP W/ REFLEX TO MICROSCOPIC+CULTURE Routine 11/02/2023 3:32 PM EST Suspected UTI HEPATITIS B SURFACE ANTIGEN Routine 11/02/2023 3:32 PM EST Abnormal LFTs CULTURE, URINE, ROUTINE Routine 11/02/2023 3:32 PM EST HEPATITIS B SURFACE ANTIBODY, QUANTITATIVE (FOR IMMUNITY) Routine 11/02/2023 3:32 PM EST Abnormal LFTs HEPATITIS B CORE ANTIBODY (TOTAL) WITH REFLEX TO IGM Routine 11/02/2023 3:32 PM EST Abnormal LFTs FERRITIN Routine 11/02/2023 3:32 PM EST Abnormal LFTs URINALYSIS, MICROSCOPIC Routine 11/02/2023 3:32 PM EST HEPATIC FUNCTION PANEL (ALT,AST,ALK PH,BILI'S,TP,ALB) Routine 11/02/2023 3:32 PM EST Abnormal LFTs documented in this encounter Results * CULTURE, URINE, ROUTINE (11/02/2023 3:32 PM EST) Bacteria culture (Urine) SEE NOTE [facility] Comment: CULTURE, URINE, ROUTINE Micro Number: [id number] Test Status: Final Specimen Source: Urine Specimen Quality: Adequate Result: Less than 10,000 CFU/mL of single Gram negative organism isolated. No further testing will be performed. If clinically indicated, recollection using a method to minimize contamination, with prompt transfer to Urine Culture Transport Tube, is recommended. 11/02/2023 3:32 PM EST 11/03/2023 12:37 AM EST us Kamilla Nicolas MD LABORATORY Final Result [facility] [address] [place] [address] * (ABNORMAL) URINALYSIS, MICROSCOPIC (11/02/2023 3:32 PM EST) WBC (Urine) 10-20(A) < OR = 5 /HPF [facility] RBC (Urine Sed) 20-40(A) < OR = 2 /HPF [facility] Epithelial cells.squamous (Urine sed) 6-10(A) < OR = 5 /HPF [facility] Bacteria (Urine) FEW(A) NONE SEEN /HPF [facility] Calcium oxalate crystals (Urine sed) MODERATE( A) NONE OR FEW /HPF [facility] Amorphous sediment (Urine sed) MODERATE( A) NONE OR FEW /HPF [facility] Hyaline casts (Urine sed) NONE SEEN NONE SEEN /LPF [facility] Service comment 01 See Below [facility] Comment: This urine was analyzed for the presence of WBC, RBC, bacteria, casts, and other formed elements. Only those elements seen were reported. 11/02/2023 3:32 PM EST 11/03/2023 12:37 AM EST us Kamilla Nicolas MD LAB SAME DAY RESULT Final Resul t Performing Organization Address [facility] de Phone Number [facility] [address] [place] [address] * FERRITIN (11/02/2023 3:32 PM EST) Ferritin 21 16 - 154 ng/mL [facility] 11/02/2023 3:32 PM EST 11/03/2023 12:37 AM EST Narrative Resulting Agency Comment [id number] us Kamilla Nicolas MD LABORATORY Final Result Performing Organization Address [facility] de Phone Number [facility] [address] [place] [address] * HEPATITIS B SURFACE ANTIGEN (11/02/2023 3:32 PM EST) Hepatitis B virus surface Ag NON-REACTI VE NON-REACT [facility] 11/02/2023 3:32 PM EST 11/03/2023 12:37 AM EST Narrative Resulting Agency Comment [id number] us Kamilla Nicolas MD LABORATORY Final Result Performing Organization Address [facility] de Phone Number [facility] [address] [place] [address] * HEPATITIS B CORE ANTIBODY (TOTAL) WITH REFLEX TO IGM (11/02/2023 3:32 PM EST) Pathologist [facility] Hepatitis B virus core Ab NON-REACTI VE NON-REACT [facility] 11/02/2023 3:32 PM EST 11/03/2023 12:37 AM EST Narrative Resulting Agency Comment [id number] Kamilla Nicolas MD LABORATORY Final Result Performing Organization Address [facility] de Phone Number [facility] [address] [place] [address] * (ABNORMAL) HEPATITIS B SURFACE ANTIBODY, QUANTITATIVE (FOR IMMUNITY) (11/02/2023 3:32 PM EST) [facility] Hepatitis B virus surface Ab 5(L) > OR = 10 mIU/mL [facility] Comment: PATIENT DOES NOT HAVE IMMUNITY TO HEPATITIS B VIRUS. For additional information, please refer to http://education.SHOP.COM/faq/PXT230 (This link is being provided for informational/ educational purposes only). 11/02/2023 3:32 PM EST 11/03/2023 12:37 AM EST Narrative Resulting Agency Comment [id number] Result [facility] Kamilla Nicolas MD LABORATORY Final Result Performing Organization Address [facility] de Phone Number [facility] [address] [place] [address] * (ABNORMAL) HEPATIC FUNCTION PANEL (ALT,AST,ALK PH,BILI'S,TP,ALB) (11/02/2023 3:32 PM EST) Pathologist [facility] Protein Total (Serum) 6.8 6.1 - 8.1 g/dL [facility] Albumin 4.3 3.6 - 5.1 g/dL [facility] Globulin 2.5 1.9 - 3.7 g/dL (calc) [facility] Albumin/Globulin 1.7 1.0 - 2.5 (calc) [facility] Bilirubin Total 0.4 0.2 - 1.2 mg/dL [facility] Bilirubin Direct 0.1 < OR = 0.2 mg/dL [facility] Bilirubin Indirect 0.3 0.2 - 1.2 mg/dL (calc) [facility] Alkaline phosphatase 67 31 - 125 U/L [facility] AST (SGOT) 18 10 - 30 U/L [facility] ALT (SGPT) 31(H) 6 - 29 U/L [facility] 11/02/2023 3:32 PM EST 11/03/2023 12:37 AM EST Narrative Resulting Agency Comment [id number] Kamilla Nicolas MD LABORATORY Final Result Performing Organization Address [facility] Co de Phone Number [facility] [address] [place] [phone] * (ABNORMAL) URINALYSIS DIP W/ REFLEX TO MICROSCOPIC+CULTURE (11/02/2023 3:32 PM EST) Color (Urine) DARK YELLOW [facility] Appearance (Urine) TURBID(A) CLEAR [facility] Specific gravity (Urine) 1.025 1.001 - 1.035 [facility] pH (Urine) 8.0 5.0 - 8.0 [facility] Glucose (Urine) NEGATIVE NEGATIVE [facility] Bilirubin (Urine) NEGATIVE NEGATIVE [facility] Ketones (Urine) TRACE(A) NEGATIVE [facility] Hemoglobin (Urine) 2+(A) NEGATIVE [facility] Protein (Urine) 1+(A) NEGATIVE [facility] Nitrite (Urine) NEGATIVE NEGATIVE [facility] Leukocyte esterase (Urine) 1+(A) NEGATIVE [facility] 11/02/2023 3:32 PM EST 11/03/2023 12:37 AM EST Narrative Resulting Agency Comment [id number] Kamilla Nicolas MD LABORATORY Final Result Performing Organization Address [facility] Co de Phone Number [facility] [address] [place] [address] documented in this encounter Visit Diagnoses Diagnosis Suspected UTI Abnormal LFTs Other abnormal blood chemistry documented in this encounter Care Teams Lip Reading Teacher Relationship Specialty Start Date End Date Kamilla Nicolas MD [address] [place] [address] PCP - General Internal Medicine 01/13/23 Emely Farmer, DOPE MAINTENANCE WORKER [address] [place] [address] PCP - Backup PCP 10/07/24 [facility] 10/29/24 12/21/24 PARK AIDE CARE TEAM YELLOW towel sewer 05/15/23 documented as of this encounter
--- OUTSIDE RECORDS SUMMARY | 2025-05-18 22:57 | XMS_ITS | Encounter Summary ---
Author Organization [facility] Address [address] [place] [address] Care Team Providers Care Construction Plant Operator Name Role Phone Kamilla Nicolas MD Primary Care Provider Emely Farmer SCRAP COLLECTOR Unavailable [phone] [facility] Unavailable U navailable Encounter Details Date Type Department Care Team (Late st Contact Info) Description 12/15/2023 Orders Only [facility] TEMPERATURE LOGGING OPERATOR [address] [place] [phone] Liliam Sandoval NP [address] [place] [address] Social History Tobacco Use Types Packs/Day Years [...] / family Once a week 02/25/2023 Attend jain services Patient declined 02/25 Club Membership No [...] Miscellaneous Notes * Result Encounter Note - Giovany Cook RN - 12/15/2023 3:37 PM EDT Vaginal cx- Negative. MCM sent. documented in this encounter Plan of Treatment Upcoming Encounters Date Type Department Care Team (Latest Contact Info) Description 05/30/2025 11:30 AM EDT Office Visit [facility] [address] [place] [address] Cristine Villegas, ARIE 123 [facility] [address] [place] [address] Return in about 3 months (around 05/30/2025) for GYR/annual exam. 06/20/2025 3:00 PM EDT Office Visit [facility] [address] [phone] Adelaida Goddard PA [address] [address] 3 mos headaches 06/26/2025 3:00 PM EDT Office Visit [facility] [address] [place] [phone] Kareen Chandra NP [address] [address] Botox/no pa needed/84 days/12 wks/consent good/med needs to be listed in epic/buy/bill 08/15/2025 11:45 AM EST CPE - Comprehensive Physical Exam [facility] [address] [place] [phone] Kamilla Nicolas MD [address] [place] [phone] lpe 08/12/2024 08/21/2025 1:45 PM EST Office Visit [facility] [address] [phone] Taya Leblanc MD [address] [address] 5-6 months follow up 09/20/2025 4:00 PM EST Office Visit [facility] [address] [place] [phone] Kareen Chandra NP [address] [address] Botox/no pa needed/84 days/12 wks/consent good/med needs [...] at . Any insurance accepted. Quit smoking resources-[email or web address] documented as of this encounter Procedures Procedure Name Priority Date/Time Associated Diagnosis Comments VAGINITIS PLUS, TMA Routine 12/15/2023 3 :37 PM EDT Acute vaginitis documented in this encounter Results * VAGINITIS PLUS, TMA (12/15/2023 3:37 PM EDT) Bacterial Vaginosis (BV), TMA NEGATIVE NEGATIVE [facility] Erica sp rRNA (Vag) NOT DETECTED NOT DETECTED [facility] ERICA GLABRATA NOT DETECTED NOT DETECTED [facility] Trichomonas vaginalis rRNA NOT DETECTED NOT DETECTED [facility] Chlamydia trachomatis rRNA NOT DETECTED NOT DETECTED [facility] Neisseria Gonorrhoeae rRNA NOT DETECTED NOT DETECTED [facility] 12/15/2023 3:37 PM EDT 12/15/2023 10:42 PM EDT Narrative Resulting Agency Comment [id number] Liliam Sandoval NP LABORATORY Final Result [facility] [address] [place] [address] documented in this encounter Visit Diagnoses Diagnosis Acute vaginitis Vaginitis and vulvovaginitis, unspecified documented in this encounter Care Teams Construction Plant Operator Relationship Specialty Start Date End Date Kamilla Nicolas MD [address] [place] [address] PCP - General Internal Medicine 01/13/23 Emely Farmer NP [address] [place] [address] PCP - Backup PCP 10/07/24 [facility] Health Assistants 10/29/24 12/21/24 BID MANAGER CARE TEAM YELLOW acetylene plant operator 05/15/23 documented as of this encounter
--- OUTSIDE RECORDS SUMMARY | 2025-05-18 22:57 | XMS_ITS | Clinical Summary ---
Author Organization [facility] Address [address] [place] [address] Care Team Providers Care Medical Office Asst Name Role Phone Unavailable Primary Care Provider Unavailabl e Source Comments PLEASE NOTE, if this patient is a minor, it may be UNLAWFUL to discuss sensitive information that is contained in these records (such as FAMILY PLANNING, MENTAL HEALTH or SUBSTANCE ABUSE) with the minor patient's parent or other person without the patient's specific authorization.[facility] Medications No known medications Active Problems No known active problems Encounters Date Type Department Care Team Description 03/13/2025 10:20 AM EDT Office Visit [facility] [address] [place] [phone] Hanane Arora DDS 02/28/2025 1:40 PM EDT Office Visit [facility] [address] [place] [phone] Siomara Aguilar from Last 3 Months Social History Tobacco Use Types Packs/Day Years Used Date Smoking Tobacco: Never Assessed Comments Unknown Sex and Gender Information Value Date Recorded Sex Assigned at Not on file Legal Sex Female 8:54 AM PDT Gender Identity Not on file Sexual Orientation Not on file Last Filed Vital Signs Vital Sign Reading Time Taken Comments Blood Pressure 144/89 03/13/2025 10:16 AM EDT Pulse 94 03/13/2025 10:16 AM EDT Temperature - - Respiratory Rate - - Oxygen Saturation - - Inhaled Oxygen Concentration - - Weight - - Height - - Body Mass Index - - Plan of Treatment Health Maintenance Due Date Last Done Comments Anxiety Screening 1996 HPV Screening 1996 Pap + HPV 1996 Tobacco Screening 1996 Relationship Safety Screening/Counseling 2011 Cervical Cancer Screening 2017 Pap Smear 2017 Alcohol and Drug Screen 08/31/2024 Depression Annual Screen 08/31/2024 Imm-Influenza (#1) 2025 06/16/2024, 1 10/11/2022, 07/18/2019, Additional history exists Diabetes Screening 02/27/2026 02/27/2025, 0 01/02/2025, 12/12/2024, Additional history exists Hypertension Screening (#1) 03/13/2026 Imm-DTaP/Tdap/Td (2 - Td or Tdap) 10/06/2032 023 Imm-Hepatitis B Completed 02/22/1997, 08/1995, 1996 Imm-HPV Completed 03/22/2024, 08/2023, 02/25/2023 [id number] Completed 06/16/2024, 08/10/2023 HIV Screening Completed 02/27/2025 Hepatitis C Screening Completed 02/27/2025 Cervical Ablation/Cold-Knife Conization Discontinued Cervical Cryotherapy Discontinued Colposcopy Discontinued Endometrial Biopsy Discontinued Excision/Leep Discontinued HPV Genotyping Discontinued Vaginal Pap Discontinued Vulvoscopy Discontinued Procedures Procedure Name Priority Date/Time Associated Diagnosis Comments 18 OFFICE VISIT OBSERVATION NO OTHER SRVC PERFORMED Routine 03/13/2025 10:20 AM EDT [facility] BITEWING - SINGLE RADIOGRAPHIC IMAGE Routine 02/28/2025 1:40 PM EDT [facility] INTRAORAL - PERIAPICAL FIRST RADIOGRAPHIC IMAGE Routine 02/28/2025 1:40 PM EDT [facility] LIMITED ORAL EVALUATION - PROBLEM FOCUSED Routine 02/28/2025 1:40 PM EDT [facility] from Last 3 Months Insurance [place] [id number]
--- OUTSIDE RECORDS SUMMARY | 2025-05-18 22:57 | XMS_ITS | Encounter Summary ---
Author Organization [facility] Address [address] [place] [address] Care Team Providers Care Grants Specialist Name Role Phone Kamilla Nicolas MD Primary Care Provider Emely Farmer SODA CLERK Unavailable [phone] [facility] Unavailable U navailable Encounter Details Date Type Department Care Team (Late st Contact Info) Description 07/17/2023 Orders Only [facility] [address] [place] [phone] Maribel Li NP [address] [place] [address] Social History Tobacco Use Types Packs/Day Years [...] / family Once a week 02/25/2023 Attend jewish services Patient declined 02/25 Club Membership No [...] Miscellaneous Notes * Result Encounter Note - Maribel Li NP - 07/17/2023 12:24 PM EST Sending to Emely Farmer NP who saw pt recently WBC and neuts elevated, likely d/t recent viral illness ALT elevated too. * Result Encounter Note - Emely Farmer NP - 07/17/2023 12:24 PM EST [facility] message sent, see message for details. documented in this encounter Plan of Treatment Upcoming Encounters Date Type Department Care Team (Latest Contact Info) Description 05/30/2025 11:30 AM EDT Office Visit [address] [phone] Cristine Villegas PA 123 [address] [place] [address] Return in about 3 months (around 05/30/2025) for GYR/annual exam. 06/20/2025 3:00 PM EDT Office Visit [facility] Neurology [address] 123 [facility] [address] [place] [address] Adelaida Goddard PA 123 [facility] 230 [place] [address] 3 mos headaches 06/26/2025 3:00 PM EDT Office Visit [facility] [address] [place] [phone] Kareen Chandra SODA CLERK [address] [address] Botox/no pa needed/84 days/12 wks/consent good/med needs to be listed in epic/buy/bill 08/15/2025 11:45 AM EST CPE - Comprehensive Physical Exam [facility] [address] [place] [phone] Kamilla Nicolas MD [address] [place] [phone] lpe 08/12/2024 08/21/2025 1:45 PM EST Office Visit [facility] [address] [phone] Taya Leblanc MD [address] [address] 5-6 months follow up 09/20/2025 4:00 PM EST Office Visit [facility] [address] [place] [phone] Kareen Chandra NP [address] [address] Botox/no pa needed/84 days/12 wks/consent good/med needs [...] Procedure Name Priority Date/Time Associated Diagnosis Comments CBC INCLUDES DIFFERENTIAL AND PLATELET COUNT Routine 07/17/2023 12:24 PM EST Rectal bleeding COMPREHENSIVE METABOLIC PANEL WITH GFR Routine 07/17/2023 12:24 PM EST Rectal bleeding documented in this encounter Results * (ABNORMAL) COMPREHENSIVE METABOLIC PANEL WITH GFR (07/17/2023 12:24 PM EST) Glucose 99 65 - 99 mg/dL [facility] Comment:Fasting reference in terval Urea Nitrogen Blood (BUN) 11 7 - 25 mg/dL [facility] Creatinine 0.91 0.50 - 0.96 mg/dL [facility] EGFR 89 > OR = 60 mL/min/1. 73m2 [facility] BUN/Creatinine Ratio SEE NOTE: (calc) [facility] Comment: Not Reported: BUN and Creatinine are within reference range. Sodium 138 135 - 146 mmol/L [facility] Potassium 4.0 3.5 - 5.3 mmol/L [facility] Chloride 108 98 - 110 mmol/L [facility] Carbon dioxide 20 20 - 32 mmol/L [facility] Calcium 9.6 8.6 - 10.2 mg/dL [facility] Protein Total (Serum) 7.1 6.1 - 8.1 g/dL [facility] Albumin 4.2 3.6 - 5.1 g/dL [facility] Globulin 2.9 1.9 - 3.7 g/dL (calc) [facility] Albumin/Globuli n 1.4 1.0 - 2.5 (calc) [facility] Bilirubin Total 0.5 0.2 - 1.2 mg/dL [facility] Alkaline phosphatase 75 31 - 125 U/L [facility] AST (SGOT) 19 10 - 30 U/L [facility] ALT (SGPT) 37(H) 6 - 29 U/L [facility] 07/17/2023 12:2 4 PM EST 07/18/2023 12:12 AM EST Narrative [facility] - 07/18/2023 4:31 AM EST Please note that this estimated GFR does [...] needs for GFR calculation. Resulting Agency Comment [id number] us Maribel Li NP LABORATORY Final Result Performing Organization Address City/State/[facility] Co de Phone Number [facility] [address] [place] [address] * (ABNORMAL) CBC INCLUDES DIFFERENTIAL AND PLATELET COUNT (07/17/2023 12:24 PM EST) WBC 12.5(H) 3.8 - 10.8 Thousand/u L [facility] RBC 4.83 3.80 - 5.10 Million/uL [facility] Hemoglobin 13.7 11.7 - 15.5 g/dL [facility] Hematocrit 41.4 35.0 - 45.0 % [facility] MCV 85.7 80.0 - 100.0 fL [facility] MCH 28.4 27.0 - 33.0 pg [facility] MCHC 33.1 32.0 - 36.0 g/dL [facility] RDW 12.9 11.0 - 15.0 % [facility] PLT 316 140 - 400 Thousand/u L [facility] MPV 10.1 7.5 - 12.5 fL [facility] Neutrophils # 8438(H) 1500 - 7800 cells/uL [facility] Lymphocytes # 2863 850 - 3900 cells/uL [facility] Monocytes # 800 200 - 950 cells/uL [facility] Eosinophils # 338 15 - 500 cells/uL [facility] Basophils # 63 0 - 200 cells/uL [facility] Neutrophils % 67.5 % [facility] Lymphocytes % 22.9 % [facility] Monocytes % 6.4 % [facility] Eosinophils % 2.7 % [facility] Basophils % 0.5 % [facility] 07/17/2023 12:2 4 PM EST 07/18/2023 12:12 AM EST Narrative Resulting Agency Comment [id number] us Maribel Li SODA CLERK LAB SAME DAY RESULT Final Resul t Performing Organization Address City/State/[facility] Co de Phone Number [facility] [address] [place] [address] documented in this encounter Visit Diagnoses Diagnosis Rectal bleeding Hemorrhage of rectum and anus documented in this encounter Care Teams Grants Specialist Relationship Specialty Start Date End Date Kamilla Nicolas MD [address] [place] [phone] PCP - General Internal Medicine 01/13/23 Emely Farmer NP [address] [place] [phone] PCP - Backup PCP 10/07/24 Tico Armas [facility] 10/29/24 12/21/24 SNAPPER ON CARE TEAM YELLOW clay worker 05/15/23 documented as of this encounter
--- OUTSIDE RECORDS SUMMARY | 2025-05-18 22:57 | XMS_ITS | Encounter Summary ---
Author Organization [facility] Address [address] [place] [address] Care Team Providers Care Senior Net Developer Architect Name Role Phone Kamilla Nicolas MD Primary Care Provider [phone] Emely Farmer BROOM BUNDLER Unavailable [phone] Reason for Referral * Radiology Services (Routine) - New Request Specialty Diagnoses / Procedures Referred By Seven anna Referred To Contact Ultrasound Diagnoses Amenorrhea Procedures US PELVIC TRANSABD & TV Cristine Villegas PA [address] [address] Phone: tel: fax: Referral ID Status Reason Start Date Expiration Date Visits Requested Visits Authorized [id number] New Request Specialty Services Required 03/06/2025 1 1 Encounter Details Date Type Department Care Team ([facility] st Contact Info) Description 03/02/2025 Telephone [facility]. Ultrasound [address] [place] [address] Cristine Villegas PA [address] [place] [address] Social History Tobacco Use Types Packs/Day Years [...] / family Patient decli agustin 10/11/2024 Attend taoism services Patient declined 10/11 Club Membership Patient [...] any clubs o r organizations such as mandaeism groups, unions, athletic groups, or school groups? 98 02/ 07/2025 How often do you attend meet [...] encounter Miscellaneous Notes * Telephone Encounter - Rafita Haney - 04/06/2025 11:54 AM EDT Called patient to confirm, US appointment is on April 12 at [facility]. * Telephone Encounter - Rafita Haney - 03/29/2025 10:56 AM EDT Sent referral to [facility] radiology for us * Telephone Encounter - Giovany Cook RN - 03/13/2025 7:37 AM EDT Future Appointments Date Time Provider Department Phone 03/27/25 4:00 PM Kareen Chandra NP [facility] [phone] 04/06/25 2:40 PM [employer]IT [employer] PRESS HAND BREAST ULTRASOUND ROOM [facility] Ultrasound [phone] 05/18/25 11:00 AM Davis Grijalva DPM [facility] Podiatry [phone] 05/30/25 11:30 AM Cristine Villegas PA [facility] [phone] 06/20/25 3:00 PM Asuncion Goddard PA [facility] Neurology [address] 06/26/25 3:00 PM Kareen Chandra NP [facility] [phone] 08/15/25 11:45 AM Kamilla Nicolas MD [facility] Medicine [phone] 08/21/25 1:45 PM Taya Leblanc MD [facility] Endocrinology [facility] [phone] * Telephone Encounter - Giovany Cook RN - 03/07/2025 3:42 PM EDT To PSS to please sent order for US to [facility] and [facility] pt call radiology to schedule. * Telephone Encounter - Cristine Villegas PA - 03/06/2025 11:26 AM EDT Order placed for external imaging * Telephone Encounter - Giovany Cook RN - 03/06/2025 10:42 AM EDT To provider to please place external US order to be done at [facility] for weight capacity. * Telephone Encounter - Fercho Eid - 03/02/2025 1:31 PM EDT Good afternoon I am reaching out to advise we called patient to schedule the US Pelvic but were not able to due toweight limit. Patient will have to be scheduled outside of [facility]. The order will be removed from [facility] on 04/16/2025. Thank you and have a great day from [facility] Radiology Scheduling Department documented in this encounter Plan of Treatment Upcoming Encounters Date Type Department Care Team (Latest Contact Info) Description 05/30/2025 11:30 AM EDT Office Visit [facility] [address] [place] [phone] Cristine Villegas PA 123 [facility] [address] [place] [address] Return in about 3 months (around 05/30/2025) for GYR/annual exam. 06/20/2025 3:00 PM EDT Office Visit [facility] Neurology [address] 123 [facility] 230 [place] [address] Adelaida Goddard PA 123 [facility] 230 [place] [address] 3 mos headaches 06/26/2025 3:00 PM EDT Office Visit [address] [phone] Kareen Chandra BROOM BUNDLER 123 [facility] 230 [place] [address] Botox/no pa needed/84 days/12 wks/consent good/med needs to be listed in epic/buy/bill 08/15/2025 11:45 AM EST CPE - Comprehensive Physical Exam [facility] [address] [place] [phone] Kamilla Nicolas MD [address] [place] [address] lpe 08/12/2024 08/21/2025 1:45 PM EST Office Visit [facility] [address] [facility] [address] [place] [address] Taya Leblanc MD 1 [facility] [address] [place] [address] 5-6 months follow up 09/20/2025 4:00 PM EST Office Visit [facility] [address] [place] [address] Kareen Chandra NP 123 [facility] [address] [place] [address] Botox/no pa needed/84 days/12 wks/consent good/med needs to be listed in epic/buy/bill Scheduled Orders Name Type Priority Associated Diagnoses Orde r Schedule US PELVIC TRANSABD & TV Imaging Routine Amenorrhea Expected: 03/06/2025, Expires: 03/05/2028 documented as of this encounter Goals Goal [...] at . Any insurance accepted. Quit smoking resources-[email or web address] HEMOGLOBIN A1C % < 7 Result Component [...] as of this encounter Visit Diagnoses Diagnosis Amenorrhea- Primary Absence of menstruation documented in this encounter Care Teams Senior Net Developer Architect Relationship Specialty Start Date End Date Kamilla Nicolas MD [address] [place] [address] PCP - General Internal Medicine 01/13/23 Emely Farmer NP [address] [place] [address] PCP - Backup PCP 10/07/24 OIL HEATER INSTALLER CARE TEAM YELLOW admission nurse 05/15/23 documented as of this encounter
--- OUTSIDE RECORDS SUMMARY | 2025-05-18 22:58 | XMS_ITS | Encounter Summary ---
Author Organization [facility] Address [address] [place] [address] Care Team Providers Care Game Moderator Name Role Phone Kamilla Nicolas MD Primary Care Provider [phone] Emely Farmer ENDODONTICS DENTIST Unavailable [phone] [facility] Unavailable U navailable Encounter Details Date Type Department Care Team (Late st Contact Info) Description 07/17/2023 Orders Only [facility] [address] [place] [phone] Kamilla Nicolas MD [address] [place] [address] Social History Tobacco Use Types Packs/Day Years [...] / family Once a week 02/25/2023 Attend hoahaoism services Patient declined 02/25 Club Membership No [...] Miscellaneous Notes * Result Encounter Note - Mayuri He RN - 07/17/2023 12:24 PM EST Please advise if ok to advise patient of normal prolactin level? documented in this encounter Plan of Treatment Upcoming Encounters Date Type Department Care Team (Latest Contact Info) Description 05/30/2025 11:30 AM EDT Office Visit [facility] [address] [place] [address] Cristine Villegas PA 123 [facility] 150 [place] [address] Return in about 3 months (around 05/30/2025) for GYR/annual exam. 06/20/2025 3:00 PM EDT Office Visit [facility] Neurology [address] [facility] 230 [place] [address] Adelaida Goddard PA [address] [address] 3 mos headaches 06/26/2025 3:00 PM EDT Office Visit [facility] [address] [place] [phone] Kareen Chandra NP [address] [address] Botox/no pa needed/84 days/12 wks/consent good/med needs to be listed in [employer]/buy/bill 08/15/2025 11:45 AM EST CPE - Comprehensive Physical Exam [facility] Medicine [address] [place] [phone] Kamilla Nicolas MD [address] [place] [address] lpe 08/12/2024 08/21/2025 1:45 PM EST Office Visit [facility] [address] [phone] Taya Leblanc MD [address] [address] 5-6 months follow up 09/20/2025 4:00 PM EST Office Visit [facility] [address] [place] [phone] Kareen Chandra NP [address] [address] Botox/no pa needed/84 days/12 wks/consent good/med needs [...] Procedure Name Priority Date/Time Associated Diagnosis Comments PROLACTIN Routine 07/17/2023 12:24 PM EST Elevated prolactin level documented in this encounter Results * PROLACTIN (07/17/2023 12:24 PM EST) Prolactin 8.1 ng/mL [facility] Comment: Reference Range Females Non- 3.0-30.0 10.0-209.0 Postmenopausal 2.0-20.0 07/17/2023 12:2 4 PM EST 07/18/2023 12:12 AM EST Narrative Resulting Agency Comment [id number] Kamilla Nicolas MD LAB SAME DAY RESULT Final Resul t [facility] [address] [place] [address] documented in this encounter Visit Diagnoses Diagnosis Elevated prolactin level Unspecified endocrine disorder documented in this encounter Care Teams Game Moderator Relationship Specialty Start Date End Date Kamilla Nicolas MD [address] [place] [address] PCP - General Internal Medicine 01/13/23 Emely Farmer NP [address] [place] [address] PCP - Backup PCP 10/07/24 [facility] 10/29/24 12/21/24 FLORAL DESIGN TEACHER CARE TEAM YELLOW it admin 05/15/23 documented as of this encounter
--- OUTSIDE RECORDS SUMMARY | 2025-05-18 22:58 | XMS_ITS | Encounter Summary ---
Author Organization [facility] Address [address] [place] [address] Care Team Providers Care Diagnostic Cardiac Sonographer Name Role Phone Kamilla Nicolas MD Primary Care Provider [phone] Emely Farmer DRIER TENDER Unavailable [phone] [facility] Unavailable U navailable Reason for Visit * Reason Comments Patient Questions Encounter Details Date Type Department Care Team ([facility] st Contact Info) Description 09/07/2023 Telephone [facility] Orthopedics [address] [facility] [address] [place] [address] Lydia Johnson MD 123 [facility] [address] [place], [place] [phone] Patient Questions Social History Tobacco Use Types Packs/Day Years [...] / family Once a week 02/25/2023 Attend catholic services Patient declined 02/25 Club Membership No [...] Description 05/30/2025 11:30 AM EDT Office Visit [facility] [address] [place] [address] Cristine Villegas PA 123 [facility] 150 [place] [address] Return in about 3 months (around 05/30/2025) for GYR/annual exam. 06/20/2025 3:00 PM EDT Office Visit [facility] Neurology [address] [phone] Adelaida Goddard PA [address] [address] 3 mos headaches 06/26/2025 3:00 PM EDT Office Visit [facility] [address] [place] [phone] Kareen Chandra NP [address] [address] Botox/no pa needed/84 days/12 wks/consent good/med needs to be listed in [employer]/bill 08/15/2025 11:45 AM EST CPE - Comprehensive Physical Exam [facility] [address] [place] [phone] Kamilla Nicolas MD [address] [place] [address] lpe 08/12/2024 08/21/2025 1:45 PM EST Office Visit [facility] [phone] Taya Leblanc MD [address] [address] 5-6 months follow up 09/20/2025 4:00 PM EST Office Visit [facility] [address] [place] [address] Kareen Chandra NP [address] [address] Botox/no pa needed/84 days/12 wks/consent good/med needs to be listed in [employer]/buy/bill documented as of this encounter Goals Goal Patient Goal Type Associated Problems Recent Progress Patient-Stated? Author Blood Pressure < 140/90 Blood Pressure 146/102(06/30 /2025 9:06 AM EDT) Kamilla Arboleda MD Note: [...] on filedocumented in this encounter Care Teams Diagnostic Cardiac Sonographer Relationship Specialty Start Date End Date Kamilla Nicolas MD 1 [place] [address] PCP - General Internal Medicine 01/13/23 Emely Farmer NP [address] [place] [address] PCP - Backup PCP 10/07/24 [facility] 10/29/24 12/21/24 OYSTER WORKER CARE TEAM YELLOW supply chain technician 05/15/23 documented as of this encounter
--- OUTSIDE RECORDS SUMMARY | 2025-05-18 22:58 | XMS_ITS | Encounter Summary ---
Author Organization [facility] Address [address] [place] [address] Care Team Providers Care Windows Systems Engineer Name Role Phone Kamilla Nicolas MD Primary Care Provider [phone] Emely Farmer GREIGE GOODS EXAMINER Unavailable [phone] [facility] Unavailable U navailable Encounter Details Date Type Department Care Team (Late st Contact Info) Description 07/02/2023 Orders Only [facility] [address] [place] [phone] Emely Farmer, GREIGE GOODS EXAMINER [address] [place] [address] Social History Tobacco Use Types Packs/Day Years [...] / family Once a week 02/25/2023 Attend zoroastrian services Patient declined 02/25 Club Membership No [...] Miscellaneous Notes * Result Encounter Note - Emely Farmer NP - 07/02/2023 4:45 PM EDT [facility] message sent, see message for details. documented in this encounter Plan of Treatment Upcoming Encounters Date Type Department Care Team (Latest Contact Info) Description 05/30/2025 11:30 AM EDT Office Visit [facility] [address] [place] [address] Cristine Villegas PA 123 [facility] 150 [place] [address] Return in about 3 months (around 05/30/2025) for GYR/annual exam. 06/20/2025 3:00 PM EDT Office Visit [facility] Neurology [address] 123 [facility] 230 [place] [address] Adelaida Goddard PA [address] [address] 3 mos headaches 06/26/2025 3:00 PM EDT Office Visit [facility] [address] [place] [phone] Kareen Chandra NP [address] [address] Botox/no pa needed/84 days/12 wks/consent good/med needs to be listed in [employer]/buy/bill 08/15/2025 11:45 AM EST CPE - Comprehensive Physical Exam [facility] [address] [place] [phone] Kamilla Nicolas MD [address] [place] [address] lpe 08/12/2024 08/21/2025 1:45 PM EST [facility] [address] [phone] Taya Leblanc MD [address] [address] 5-6 months follow up 09/20/2025 4:00 PM EST Office Visit [facility] [address] [place] [phone] Kareen Chandra NP [address] [address] Botox/no pa needed/84 days/12 wks/consent good/med needs [...] URINALYSIS DIP W/ REFLEX TO MICROSCOPIC+CULTURE Routine 07/02/2023 4:45 PM EDT Urinary incontinence, unspecified type documented in this encounter Results * (ABNORMAL) URINALYSIS DIP W/ REFLEX TO MICROSCOPIC+CULTURE (07/02/2023 4:45 PM EDT) Color (Urine) YELLOW YELLOW [facility] Appearance (Urine) TURBID(A) CLEAR [facility] Specific gravity (Urine) 1.023 1.001 - 1.035 [facility] pH (Urine) 7.5 5.0 - 8.0 [facility] Glucose (Urine) NEGATIVE NEGATIVE [facility] Bilirubin (Urine) NEGATIVE NEGATIVE [facility] Ketones (Urine) TRACE(A) NEGATIVE [facility] Hemoglobin (Urine) NEGATIVE NEGATIVE [facility] Protein (Urine) TRACE(A) NEGATIVE [facility] Nitrite (Urine) NEGATIVE NEGATIVE [facility] Leukocyte esterase (Urine) NEGATIVE NEGATIVE [facility] 07/02/2023 4:45 PM EDT 07/02/2023 11:00 PM EDT Narrative Resulting Agency Comment [id number] Emely Farmer NP LABORATORY Final Result [facility] [address] [place] [address] documented in this encounter Visit Diagnoses Diagnosis Urinary incontinence, unspecified type documented in this encounter Care Teams Windows Systems Engineer Relationship Specialty Start Date End Date Kamilla Nicolas MD [address] [place] [address] PCP - General Internal Medicine 01/13/23 Emely Farmer NP [address] [place] [address] PCP - Backup PCP 10/07/24 [facility] 10/29/24 12/21/24 SOFTWARE DEVELOPMENT COORDINATOR CARE TEAM YELLOW revenue cycle manager 05/15/23 documented as of this encounter
--- OUTSIDE RECORDS SUMMARY | 2025-05-18 22:58 | XMS_ITS | Encounter Summary ---
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 Unavailable U navailable Encounter Details Date Type Department Care Team (Late st Contact Info) Description 06/16/2024 Orders Only [facility] [address] [facility] [address] [place] [phone] Taya Leblanc MD [address] [address] Social History Tobacco Use Types Packs/Day Years [...] / family Once a week 02/25/2023 Attend spiritism services Patient declined 02/25 Club Membership No [...] Miscellaneous Notes * Result Encounter Note - Taya Leblanc MD - 06/16/2024 11:05 AM EDT See my chart message * Result Encounter Note - Shahrzad Weir MD FAC - 06/16/2024 11:05 AM EDT [facility] Ms Santacruz- All your blood tests are normal except your blood sugar is elevated. Please continue Wegovy, and eat a diet high in veggies and lean proteins, and avoidant of sweets and white carbs Sincerely, Shahrzad Weir MD FACP covering for Dr Leblanc documented in this encounter Plan of Treatment Upcoming Encounters Date Type Department Care Team (Latest Contact Info) Description 05/30/2025 11:30 AM EDT Office Visit [facility] [address] [place] [address] Cristine Villegas PA [address] [address] Return in about 3 months (around 05/30/2025) for GYR/annual exam. 06/20/2025 3:00 PM EDT Office Visit [facility] [address] [address] Adelaida Goddard PA 123 [facility] [address] [place] [address] 3 mos headaches 06/26/2025 3:00 PM EDT Office Visit [facility] [address] [place] [address] Kareen Chandra NP 123 [facility] [address] [place] [address] Botox/no pa needed/84 days/12 wks/consent good/med needs to be listed in epic/buy/bill 08/15/2025 11:45 AM EST CPE - Comprehensive Physical Exam [facility] [address] [place] [phone] Kamilla Nicolas MD [address] [place] [address] lpe 08/12/2024 08/21/2025 1:45 PM EST Office Visit [facility]ocr[facility] [address] 1 [facility] [address] [place] [address] Taya Leblanc MD [address] [address] 5-6 months follow up 09/20/2025 4:00 PM EST Office Visit [facility] [address] [place] [address] Kareen Chandra NP 123 [facility] [address] [place] [address] Botox/no pa needed/84 days/12 wks/consent good/med needs [...] at . Any insurance accepted. Quit smoking resources-[email or web address] documented as of this encounter Procedures Procedure Name Priority Date/Time Associated Diagnosis Comments TESTOSTERONE,TOTAL, MS Routine 11:14 AM EDT Morbid obesity with body mass index of 60.0-69.9 in adult PCOS (polycystic ovarian syndrome) THYROID PEROXIDASE AND THYROGLOBULIN ANTIBODIES Routine 06/16/2024 11:14 AM EDT Morbid obesity with body mass index of 60.0-69.9 in adult PCOS (polycystic ovarian syndrome) Family history of thyroid disease TSH, 3RD GENERATION Routine 06/16/2024 1 1:14 AM EDT Morbid obesity with body mass index of 60.0-69.9 in adult PCOS (polycystic ovarian syndrome) Family history of thyroid disease T4, FREE, SERUM Routine 06/16/2024 11:14 AM EDT Morbid obesity with body mass index of 60.0-69.9 in adult PCOS (polycystic ovarian syndrome) Family history of thyroid disease INSULIN-LIKE GROWTH FACTOR 1, SERUM Routine 06/16/2024 11:14 AM EDT Morbid obesity with body mass index of 60.0-69.9 in adult PCOS (polycystic ovarian syndrome) PROLACTIN Routine 06/16/2024 11:14 AM EDT Morbid obesity with body mass index of 60.0-69.9 in adult PCOS (polycystic ovarian syndrome) 17-HYDROXYPROGESTERONE , LC/MS/MS Routine 06/16/2024 11:14 AM EDT Morbid obesity with body mass index of 60.0-69.9 in adult PCOS (polycystic ovarian syndrome) DHEA SULFATE Routine 06/16/2024 11:14 AM EDT Morbid obesity with body mass index of 60.0-69.9 in adult PCOS (polycystic ovarian syndrome) BASIC METABOLIC PANEL WITH (GFR) Routine 06/16/2024 11:14 AM EDT Morbid obesity with body mass index of 60.0-69.9 in adult PCOS (polycystic ovarian syndrome) documented in this encounter Results * 17-HYDROXYPROGESTERONE, LC/MS/MS (06/16/2024 11:14 AM EDT) [facility] 17-Hydroxyproges terone 15 see note ng/dL [employer] Comment: Unable to flag abnormal result(s), please refer to reference range(s) below: Adult Female Reference Ranges for 17-Hydroxyprogesterone: Pre-Menopausal Mid Follicular: 23 - 102 ng/dL Pre-Menopausal Surge: 67 - 349 ng/dL Pre-Menopausal Mid Luteal: 139 - 431 ng/dL Postmenopausal Phase: < or = 45 ng/dL Female Javad Stages: II - III Females: 18 - 220 ng/dL IV - V Females: 36 - 200 ng/dL Includes data from J Clin Endocrinol Metab. 1991;73:674-686; J Clin Endocrinol Metab. 1989;69;0180-3443; J Clin Endocrinol Metab. 1994;78:226-270. Pediatr Res 1988;23:525-529. MedLinePlus (accessed 02/13/14). This test was developed and its analytical performance characteristics have been determined by [facility] [place], [place]. It has not been cleared or approved by the U.S. Food and Drug Administration. This assay has been validated pursuant to the CLIA regulations and is used for clinical purposes. 06/16/2024 11:1 4 AM EDT 06/16/2024 7:56 PM EDT Narrative Resulting Agency Comment [id number] Taya Leblanc MD LABORATORY Final Resu lt Performing Organization Address [facility] Co de Phone Number [facility] [address] [place] [address] * DHEA SULFATE (06/16/2024 11:14 AM EDT) DHEA SULFATE 264 14 - 349 mcg/dL [facility] 06/16/2024 11:1 4 AM EDT 06/16/2024 7:56 PM EDT Narrative Resulting Agency Comment [id number] Taya Leblanc MD LABORATORY Final Resu lt Performing Organization Address [facility] de Phone Number [facility] [address] [place] [address] * PROLACTIN (06/16/2024 11:14 AM EDT) Prolactin 12.4 ng/mL [facility] Comment: Reference Range Females Non- 3.0-30.0 10.0-209.0 Postmenopausal 2.0-20.0 06/16/2024 11:1 4 AM EDT 06/16/2024 7:56 PM EDT Narrative Resulting Agency Comment [id number] Taya Leblanc MD LAB SAME DAY RESULT Final Result Performing Organization Address [facility] de Phone Number [facility] [address] [place] [address] * TESTOSTERONE,TOTAL, MS (06/16/2024 11:14 AM EDT) Testosterone 27 2 - 45 ng/dL [facility] Comment: For additional information, please refer to http://education.Nursenav.HuJe labs/faq/ [email or web address] (This link is being provided for informational/ educational purposes only.) This test was developed and its analytical performance characteristics have been determined by [facility] [place], [place]. It has not been cleared or approved by the U.S. Food and Drug Administration. This assay has been validated pursuant to the CLIA regulations and is used for clinical purposes. 06/16/2024 11:1 4 AM EDT 06/16/2024 7:56 PM EDT Narrative Resulting Agency Comment [id number] Taya Leblanc MD LABORATORY Final Resu lt Performing Organization Address [facility] de Phone Number [facility] [address] [place] [address] * INSULIN-LIKE GROWTH FACTOR 1, SERUM (06/16/2024 11:14 AM EDT) IGF-1 (Somatomedin) 158 63 - 373 ng/mL [facility] Z Score (Female) -0.1 -2.0 - 2.0 SD [facility] Comment: This test was developed and its analytical performance characteristics have been determined by [facility]. It has not been cleared or approved by FDA. This assay has been validated pursuant to the CLIA regulations and is used for clinical purposes. 06/16/2024 11:1 4 AM EDT 06/16/2024 7:56 PM EDT Narrative Resulting Agency Comment [id number] Taya Leblanc MD LABORATORY Final Resu lt Performing Organization Address [facility] Phone Number [facility] [address] [place] [address] * TSH, 3RD GENERATION (06/16/2024 11:14 AM EDT) TSH 1.89 mIU/L [facility] Comment: Reference Range > or = 20 Years 0.40-4.50 Ranges First trimester 0.26-2.66 Second trimester 0.55-2.73 Third trimester 0.43-2.91 06/16/2024 11:1 4 AM EDT 06/16/2024 7:56 PM EDT Narrative Resulting Agency Comment [id number] Taya Leblanc MD LABORATORY Final Resu lt Performing Organization Address [facility] de Phone Number [facility] [address] [place] [address] * T4, FREE, SERUM (06/16/2024 11:14 AM EDT) FT4 1.1 0.8 - 1.8 ng/dL [facility] 06/16/2024 11:1 4 AM EDT 06/16/2024 7:56 PM EDT Narrative Resulting Agency Comment [id number] Taya Leblanc MD LABORATORY Final Resu lt Performing Organization Address [facility] Co de Phone Number [facility] [address] [place] [address] * THYROID PEROXIDASE AND THYROGLOBULIN ANTIBODIES (06/16/2024 11:14 AM EDT) Pathologist [facility] Thyroglobulin Ab <1 < or = 1 IU/mL [facility] Thyroperoxidase Ab 1 <9 IU/mL Q [facility] 06/16/2024 11:1 4 AM EDT 06/16/2024 7:56 PM EDT Narrative Resulting Agency Comment [id number] Taya Leblanc MD LABORATORY Final Resu lt Performing Organization Address [facility] de Phone Number [facility] [address] [place] [address] * (ABNORMAL) BASIC METABOLIC PANEL WITH (GFR) (06/16/2024 11:14 AM EDT) Pathologist [facility] Glucose 193(H) 65 - 99 mg/dL [facility] Comment: Fasting reference interval For someone without known diabetes, a glucose value >125 mg/dL indicates that they may have diabetes and this should be confirmed with a follow-up test. Urea Nitrogen Blood (BUN) 13 7 - 25 mg/dL [facility] Creatinine 0.88 0.50 - 0.96 mg/dL [facility] EGFR 92 > OR = 60 mL/min/1. 73m2 [facility] BUN/Creatinine Ratio SEE NOTE: 6 - 22 (calc) [facility] Comment: Not Reported: BUN and Creatinine are within reference range. Sodium 140 135 - 146 mmol/L [facility] Potassium 3.8 3.5 - 5.3 mmol/L [facility] Chloride 109 98 - 110 mmol/L [facility] Carbon dioxide 24 20 - 32 mmol/L [facility] Calcium 8.9 8.6 - 10.2 mg/dL [facility] 06/16/2024 11:1 4 AM EDT 06/16/2024 7:56 PM EDT Narrative [facility] - 06/17/2024 7:30 AM EDT Please note that this estimated [...] needs for GFR calculation. Resulting Agency Comment [id number] Taya Leblanc MD LABORATORY Final Resu lt [facility] [address] [place] [address] documented in this encounter Visit Diagnoses Diagnosis Morbid obesity with body mass index of 60.0-69.9 in adult (HCC) Morbid obesity PCOS (polycystic ovarian syndrome) Polycystic ovaries Family history of thyroid disease Family history of other endocrine and metabolic diseases documented in this encounter Care Teams Distillery Worker General Relationship Specialty Start Date End Date Kamilla Nicolas MD [address] [place] [address] PCP - General Internal Medicine 01/13/23 Emely Farmer NP [address] [place] [address] PCP - Backup PCP 10/07/24 Tico Armas [facility] 10/29/24 12/21/24 [employer] YELLOW benefits administrator 05/15/23 documented as of this encounter
--- OUTSIDE RECORDS SUMMARY | 2025-05-18 22:58 | XMS_ITS | Clinical Summary ---
Author Organization [facility] Address [address] [place] [address] Care Team Providers Care Load Tester Name Role Phone Kamilla Nicolas MD Primary Care Provider [phone] Emely Farmer COMMUNITY MENTAL HEALTH WORKER Unavailable [phone] Allergies Active Allergy Reactions Criticality Noted Date Comments Ibuprofen Other 07/12/2020 Pt says remove Kale Anaphylaxis 01/15/2023 Lactose Diarrhea/GI Upset 06/19/2023 Latex Pruritus (itching),Maculopapular Rash Low 08/07/2016 Naproxen Nausea/GI Upset 11/02/2015 Pl;ease remove error Pineapple Other 08/11/2017 Itchy throat- pt states she grew out of the allergy NOT ALLERGIC Prednisone Dizzy/Confused,Arrhy thmi a Low 02/25/2018 Dizzy, word finding difficulty. No anaphylaxis Spinach Anaphylaxis 08/11/2017 Medications * This document contains information received from the source organization and may not represent a complete record from that organization. Cyanocobalamin 1000 MCG Cap 1 tab po daily 90 capsule 3 023 Active LORazepam (ATIVAN) 0.5 MG tablet Take 0.5 mg by mouth 1 (one) time each day if needed. for anxiety 023 Active Blood Glucose Monitoring Suppl (FreeStyle Lite) w/Device KitIndications:Pr ediabetes 1 each -. 1 kit 023 Active Glucose Blood test stripIndications: Prediabetes To be used once daily for checking blood sugar Please dispense the type covered by insurance that matches the glucometer. 90 strip 3 Active Lactulose (CHRONULAC) 10 GM/15ML solutionIndicatio ns:Constipation, unspecified constipation type Take 15 mL (10 g total) by mouth every night. 473 mL 5 Active Vraylar 4.5 MG Cap TAKE 1 CAPSULE BY MOUTH EVERY NIGHT AT BEDTIME DOSE INCREASE. Active albuterol (2.5 MG/3ML) 0.083% nebulizer solutionIndicatio ns:Acute cough Take 3 mL (2.5 mg total) by nebulization 4 (four) times a day if needed for wheezing or shortness of breath. 25 each 024 2024 Active Albuterol (Ventolin HFA) 90 mcg/ACT inhaler INHALE 2 PUFFS BY MOUTH EVERY 4 TO 6 HOURS NEEDED. 18 each Active Chlorthalidone (HYGROTON) 25 MG tablet TAKE ONE TABLET (25 MG TOTAL) BY MOUTH ONE TIME EACH DAY 90 tablet 3 Active Budesonide-Formot cesar Fumarate (SYMBICORT) 80-4.5 MCG/ACT inhalerIndication s:Mild persistent asthma without complication (HHS) Inhale one puff 2 (two) times a day. 1 each 5 024 2025 Active Spacer/Aero-Holdi ng Chambers (AeroChamber Plus Lj-Vu Medium) MiscIndications:M ild persistent asthma without complication (HHS) 1 Device - use as directed with inhalers. 1 each Active Lamotrigine (LaMICtal) 200 MG tablet Take 1 tablet by mouth 1 (one) time each day. Active Lyrica 150 MG capsule Active buPROPion ER (WELLBUTRIN XL) 150 MG 24 hr tablet TAKE 1 TABLET BY MOUTH EVERY MORNING DOSE INCREASE Active Risperidone (RisperDAL) 0.5 MG tablet Take 0.5 mg by mouth at night if needed at bedtime. 025 Active Clindamycin Phosphate (CLINDAGEL) 1 % gel APPLY TOPICALLY 2 (TWO) TIMES A DAY APPLY TO FACE. Active busPIRone HCl (BUSPAR) 10 MG tablet Take 10 mg by mouth 1 (one) time each day in the morning. Active busPIRone HCl (BUSPAR) 30 MG tablet Take 30 mg by mouth every night. Active Etonogestrel (NEXPLANON SC) Inject under the skin. Active Nicotine (NICODERM CQ) 21 MG/24HRIndication s:Smoker Place one patch on the skin 1 (one) time each day at the same time. 30 patch 1 025 2024 Active Baclofen (LIORESAL) 10 MG tabletIndications :Cervico-occipita l neuralgia of the right side Take one tablet (10 mg total) by mouth at night if needed for muscle spasms. 90 tablet 1 025 2025 Active Nortriptyline HCl (PAMELOR) 10 MG capsuleIndication s:Migraine without aura and without status migrainosus, not intractable,Cervi co-occipital neuralgia of the right side Take one capsule (10 mg total) by mouth every night. 90 capsule 2024 Active Topiramate (TOPAMAX) 100 MG tabletIndications :Migraine without aura and without status migrainosus, not intractable Take two tablets (200 mg total) by mouth 2 (two) times a day. 360 tablet 2024 Active Meclizine HCl (ANTIVERT) 25 MG tabletIndications :Migraine without aura and without status migrainosus, not intractable,Vesti bular migraine Take two tablets by mouth 2 times a day if needed for dizziness or nausea. Do not exceed more than 4 tablets per day.. 120 tablet 3 Active metFORMIN ER (GLUCOPHAGE-XR) 500 MG 24 hr tabletIndications :Prediabetes Take one tablet (500 mg total) by mouth 1 (one) time each day. 90 tablet 3 Active ondansetron (ZOFRAN) 4 MG tabletIndications :Migraine without aura and without status migrainosus, not intractable,Vesti bular migraine Take one tablet (4 mg total) by mouth 3 (three) times a day if needed for nausea or vomiting TAKE 1 TABLET BY MOUTH ONCE SCHEDULED (up to 3 times a day as needed). 60 tablet 3 025 Active Fluconazole (DIFLUCAN) 150 MG tablet Take one tablet (150 mg total) by mouth - today for yeast infection.. 1 tablet 025 2024 Active Fluconazole (Diflucan) 150 MG tablet Take 1 tablet orally every 3 days x 2 doses. 2 tablet 025 Active Atorvastatin Calcium (LIPITOR) 20 MG tablet TAKE 1 TABLET BY MOUTH EVERY DAY 90 tablet 3 025 Active Rizatriptan Benzoate (MAXALT-OBJECT ORIENTED DEVELOPER) 10 MG disintegrating tabletIndications :Migraine without aura and without status migrainosus, not intractable Take one tablet at the onset of migraine. May repeat in 2 hours if unresolved. Do not exceed 2 tablets in 24 hours. 9 tablet 1 025 Active Omeprazole (PriLOSEC) [address] capsuleIndication s:Gastroesophagea l reflux disease, unspecified whether esophagitis present TAKE TWO CAPSULES (40 MG TOTAL) BY MOUTH IN THE MORNING AND AT BEDTIME. 360 capsule 3 025 Active Spironolactone (ALDACTONE) 50 MG tabletIndications :Polycystic ovarian syndrome Take one tablet (50 mg total) by mouth 2 (two) times a day. Patient to have labs for future refills.. 90 tablet 1 025 Active Omeprazole (PriLOSEC) [address] capsuleIndication s:Gastroesophagea l reflux disease, unspecified whether esophagitis present TAKE TWO CAPSULES (40 MG TOTAL) BY MOUTH IN THE MORNING AND AT BEDTIME. 360 capsule 3 024 2024 Discontinued Spironolactone (ALDACTONE) 50 MG tabletIndications :Polycystic ovarian syndrome Take one tablet (50 mg total) by mouth 2 (two) times a day Please call the office for an appointment for future refills. 90 tablet 1 025 2024 Discontinued Rizatriptan Benzoate (MAXALT-OBJECT ORIENTED DEVELOPER) 10 MG disintegrating tabletIndications :Migraine without aura and without status migrainosus, not intractable Take one tablet at the onset of migraine. May repeat in 2 hours if unresolved. Do not exceed 2 tablets in 24 hours. 9 tablet 025 2024 Discontinued(R eorder (No Cancel Rx)) Active Problems Problem Noted Date Diagnosed Date Smoker 02/22/2025 Assessment & Plan (02/24/2025 7:05 PM EDT): Working on smoking cessation Refilled 21 mg patch and will send tapering supplies afterwards Orders: Nicotine (NICODERM CQ) 21 MG/24HR; Place one patch on the skin 1 (one) time each day at the same time. ADHD 11/17/2024 Type 2 diabetes mellitus wit h hyperglycemia, without long-term current use of insulin 08/12/2024 Overview (09/19/2024): Hemoglobin A1C Date Value Ref Range Status 07/04/2024 7.0 (H) <5.7 % of total Hgb Final Comment: For someone without known diabetes, a [...] A1c for diagnosis of diabetes for children. On metformin 500 mf XR/d, switching wegovy to Maoujaro Has fup with endocrine On statin Mounharo was not covered therefore has sbeen switched to Trulicity Vestibular migraine 07/04/2024 Trapezius muscle spasm 07/04/2024 Family history of thyroid disease 04/07/2024 Pulmonary nodule 12/08/2023 Overview (08/12/2024): CT 11/2023 13 mm left lower lobe groundglass nodule. Single ground-glass nodule bigger than 6mm. For this type of nodule, the Fleischner Society recommends CT in 6 to12 months to confirm persistence, then CT every 2 years until [address] chest to further assess given reported heavy smoking and vaping hx CT 05/2024 IMPRESSION: There is ill-defined left lower lobe groundglass 22 x 16 mm nodule. Direct comparison with prior outside CT chest study is advised. Based on the NCCN guidelines (nonsolid nodule equal to or greater than 20 mm requires six-month follow-up chest CT), follow-up chest CT in 6 months is recommended. Addendum Addendum to chest CT dated June 09, 2024. Patient's outside chest CT dated December 03, 2023 has now become available for comparison. The 22 x 16 mm left lower lobe groundglass nodule has not significantly changed since December 03, 2023. Stability of 22 mm groundglass nodule over the period of 6 months warrants no further follow-up. Vapes nicotine containing substance 08/18/2023 Overview (08/12/2024): Has smoked cigarettes 1/2 pack a day since she was 14, at 19 was smoking a pack a day for one year and then 2 packs a day , Switched to vaping 3-4 years ago - smokes 9000 puff vape a week now, each 10 puff is equal to 1 cigarette so 1.5 -2 packs a day We discussed importance of smoking cessation, she is more concerned now given the pulm nodule found on her CT She is willing to consider nicotine patches- we discussed a quit date and the the instructions with 3 step dosing She is seeing a psychiatrist at [facility] in [facility] . I will try to see if we can connect to discuss if chantix is a reasonable option for her 07/2024- reports she has cut down and her vape lasts her 2 weeks instead of one week Reassess periodically Urinary incontinence 07/01/2023 CHELY (obstructive sleep apnea) 03/23/2023 Overview (08/12/2024): 01/21/2023 4:00 PM SLEEPINESS SCALE, EPWORTH (ESS) 1. Sitting and reading? 2 2. Watching TV? 2 3. Sitting inactive in a public place? 1 4. Being a passenger in a motor vehicle for an hour or >? 2 5. Lying down in the afternoon? 3 6. Sitting and talking to someone? 1 7. Sitting quietly after lunch (no alcohol) 2 8. Stopped for a few minutes in traffic while driving? 1 Total Score (equals your ESS)-Staff Entered 14 Sleep study 02/2023 I MPRESSION: At times, the oxygen saturation channel was out and the oxygen saturation duration evaluation is 6 hours and 19 minutes. IMPRESSION: This is an abnormal home sleep study due to mild obstructive sleep apnea. CLINICAL CORRELATION: Based on the degree of apnea observed treatment options include weight loss, use of an oral appliance and ruling on upper airway obstruction. If the patient is excessively sleepy during the day with insurance approval, a trial of auto CPAP at 5-20 cm of water may also be an option. The patient should not drive if drowsy. Has been started on cpap and noted improvement in her CHELY and fatigue sx's .She was homeless for a few months and was staying in a family member's basement so could not use the machine but then staying with mother and plan had been to restart High blood pressure 01/15/2023 Overview (08/12/2024): Stable on chlorthalidone. We reviewed making sure she stays hydrated and she takes potassium supp and adequate amount from food Nl bmp 05/2024 Sciatica 01/15/2023 Overview (01/21/2023): Was seeing a occupational safety specialist at [place] Has done PT- completed a year ago On muscle relaxant at this time Will fax new referral per patient request High cholesterol 01/15/2023 Overview (08/12/2024): On Lipitor Last LDL 05/2024 < 100 Borderline personality disorder 01/15/2023 Bipolar I disorder 10/03/2020 Overview (08/12/2024): Sees a psychiatrist in [facility] - in [place] We reviewed her medications today Reports sleep issues has worsened since her housing situation has been unstable, staying with her mom now Chondromalacia, patella, right 09/22/2019 Tear of lateral meniscus of right knee, current 09/22/[address] 09/06/2019 Overview (03/22/2024): Inserted 06/05/2023 Family history of breast cancer 02/24/2018 Overview (08/10/2023): Maternal aunts x 2- at 39-40 and early to mid 40's ( and recurrent) No BRCA testing Fatty liver 09/28/2017 Overview (08/12/2024): Mild ALT elevation Will update labs with next set of labs Working on weight loss and on GLP-1 now Deliberate self-cutting 09/08/2017 Migraine without aura and wi thout status migrainosus, not intractable 04/17/2017 Overview (08/12/2024): Seeing [facility] On combination of Topomax and Botox injections, Nartriptan for headaches as needed Morbid obesity with body mass index of 60.0-69.9 in adult 01/20/2017 Overview (08/12/2024): She is a candidate for WLS but reports her mental health issues have been a barrier Started on Saxenda sep 10 2023. Tolerated well , lost close to 20 ibs but was unable to obtain after .Has not been able to tolerate Wellbutrin in the last . Already on topomax We discussed phentamine as an option- reviewed side effects including jitteriness, increase in BP Start 1/s tablet daily, rtc one month fu for BP check 03/31/2024- Off adipex and I reviewed with her that given her tachycardia this is not a recommended medication at this time She is seeing bariatric surgery and tells me that the provider has asked for a clearance letter from PCP- No form has been given to her. There is no upcoming dates for surgery in place yet. I reviewed with her that clearance is generally done about 30 days prior to surgery . That being said, I did provide a letter stating that her hTN is under control and CHELY is being treated so should not be barriers for her surgery She needs anesthesia consult prior to surgery She will need clearance form her psychiatrist as well 05/2024- started on wegovy - Has been started on wegovy after detailed counseling, some slow pace of weight loss, initially had GI sx's and needed to use zofran for nausea but doing much better in that regards . Her A1c has entered diabetic range and per discussion with endocrine can benefit from switching to Mounjaro I will touch base with our pharmacist if I can switch her tro 5 mg weekly dose as she is already on wegovy 0.5 mg weekly Rtc 2 months , will update A1c then Mild persistent asthma without complication ([facility] ) 01/20/2017 Overview (08/12/2024): Gets more wheezing Cutting back on much she smokes - Uses her inhaler and nebulizer Vapes lasts her 2 weeks instead of pne week Has some sputum production but clear We discussed adding a steroid containing inhaler to optimize tx regimen Depressive disorder 11/17/2016 Anxiety disorder 11/17/2016 Schizoaffective disorder 11/17/2016 Carpal tunnel syndrome, bilateral upper limbs Menorrhagia 01/11/2015 Gastroesophageal reflux 11/25/2013 Overview (08/12/2024): On Ppi and Carafate Acanthosis nigricans 07/04/2013 PCOS (polycystic ovarian syndrome) 04/28/2011 Overview (08/12/2024): Morbid obesity, irregular cycles Nexplanon replaced 05/2023 Working on weight loss, with GLP-1 Resolved Problems Problem Noted Date Diagnosed Date Resolved Date Migraine without aura and wi thout status migrainosus, not intractable 07/04/2024 08/12/2024 Insertion of Nexplanon 06/05/202308/12 Ankle injury 01/15/2023 11/17/2024 Migraine headache 06/01/2021 01/21/2023 Prediabetes 04/30/2020 08/12/2024 Fatigue 07/18/2019 08/12/2024 IUD contraception 01/11/2015 01/15/2023 Morbid obesity 11/25/2013 01/21/2023 Snoring 11/25/2013 08/12/2024 Overview (01/21/2023): Morbid obesity and chronic fatigue 01/21/2023 4:00 PM SLEEPINESS SCALE, EPWORTH (ESS) 1. Sitting and reading? 2 2. Watching TV? 2 3. Sitting inactive in a public place? 1 4. Being a passenger in a motor vehicle for an hour or >? 2 5. Lying down in the afternoon? 3 6. Sitting and talking to someone? 1 7. Sitting quietly after lunch (no alcohol) 2 8. Stopped for a few minutes in traffic while driving? 1 Total Score (equals your ESS)-Staff Entered 14 Referral to sleep study placed. Asthma ([facility]) 11/25/2013 01/21/2023 Encounters Date Type Department Care Team Description 05/05/2025 Patient Outreach Population Health [facility] [address] [place] [address] Kamilla Nicolas MD 04/27/2025 9:20 AM EDT Office Visit [facility] Podiatry [address] [facility] 2nd Floor [address] [place] [address] Davis Grijalva, ALLIE Left without seen 04/21/2025 Refill [facility] Endocrinology [address] [facility] 3rd [place] [phone] Taya Leblanc MD E-prescribing Refill Request (Spironolactone ) 04/21/2025 Refill [facility] [address] [place] [phone] Kamilla Nicolas MD E-prescribing Refill Request 04/20/2025 Refill [facility] Neurology [address] [facility] [address] [place] [address] López Goddard PA Refill Request 04/18/2025 Telephone [facility] [address] [place] [address] Cristine Villegas PA No Show (Ultrasound ) 04/16/2025 Refill [facility] [address] [place] [phone] Kamilla Nicolas MD E-prescribing Refill Request 04/07/2025 Results Follow-Up [facility] [address] [place] [phone] Kamilla Nicolas MD BREAST LIMITED, DIAGNOSTIC - LEFT 04/06/2025 2:40 PM EDT Radiology [facility] [address] [place] [address] Breast pain 03/27/2025 4:00 PM EDT Office Visit [facility] [address] [place] [address] Kareen Chandra NP Migraine without aura and without status migrainosus, not intractable (Primary Dx) 03/24/2025 Telephone [facility] [address] [place] [address] Cristine Villegas PA Vaginal Discharge/itch 03/24/[address] [phone] [facility] 03/20/2025 Telephone [facility] [address] [place] [phone] Kamilla Nicolas MD Prescription Assistance; Vaginal Discharge/itch 03/16/2025 Refill [facility] Neurology [address] [phone] López Goddard PA Refill Request 03/14/2025 Refill [facility] [address] [place] [phone] Kamilla Nicolas MD E-prescribing Refill Request 03/09/2025 Telephone [facility] [address] [place] [phone] Kamilla Nicolas MD Letter/form Request 03/07/2025 2:00 PM EDT Office Visit [facility] Neurology [address] [facility] [address] [place] [address] López Goddard PA Migraine without aura and without status migrainosus, not intractable (Primary Dx); Vestibular migraine; Chronic tension-type headache, not intractable; Cervico-occipital neuralgia of the right side 03/05/2025 Results Follow-Up [facility] Endocrinology [facility] [address] [phone] Taya Leblanc MD BASIC METABOLIC PANEL WITH (GFR) 03/02/2025 Telephone [facility]. Ultrasound [address] [place] [address] Cristine Villegas PA 03/02/[address] [phone] Kamilla Nicolas MD Abdominal Pain 02/28/2025 Results Follow-Up [address] [phone] Giovany Cook RN HEPATITIS C AB WITH REFLEX TO RNA PCR, SERUM, HEPATITIS B SURFACE ANTIGEN, HIV 1/2 ANTIGEN/ANTIBODY, FOURTH GENERATION W/RFL, Additional followed-up results: 3 02/27/2025 9:00 AM EDT Office Visit [address] [phone] Cristine Villegas PA Vaginal odor (Primary Dx); Amenorrhea; PCOS (polycystic ovarian syndrome); Dysuria; Vaginal discharge; Screening examination for sexually transmitted disease 02/27/2025 Minor Procedure/Test [address] [phone] Kamilla Nicolas MD 02/27/2025 Minor Procedure/Test NON FC SA NON FC UNK Provider, Unknown 02/27/2025 Orders Only [facility] Endocrinology [facility] [address] [phone] Taya Leblanc MD 02/27/2025 Orders Only [address] [phone] Cristine Villegas PA 02/22/2025 3:30 PM EDT Office Visit [address] [phone] Kamilla Nicolas MD RUQ pain (Primary Dx); Nausea; Smoker 02/22/2025 Telephone [facility] [address] [place] [phone] Kamilla Nicolas MD Labs/orders (STAT ultrasound abdomen) 02/22/2025 Results Follow-Up [address] [address] Milka Rollins MD XRAY ANKLE COMPLETE MIN 3 VWS - LEFT 02/20/2025 9:15 AM EDT Office Visit [facility] Endocrinology [facility] 1 [facility] 3rd [place] [phone] Taya Leblanc MD PCOS (polycystic ovarian syndrome) (Primary Dx); Polycystic ovarian syndrome; Morbid obesity with body mass index of 60.0-69.9 in adult ([facility]); Family history of thyroid disease 02/17/2025 Patient Outreach Population Health [facility] [address] [place] [address] Kamilla Nicolas MD 02/15/2025 11:00 AM EDT Radiology [facility] Xray [address] [place] [phone] Acute left ankle pain 02/15/2025 10:20 AM EDT Consult (Initial) [facility] Podiatry [address] [facility] 2nd [address] [place] [address] Davis Grijalva DPM Chronic heel pain, left (Primary Dx); Acute left ankle pain; Moderate ankle sprain, left, initial encounter; Morbid obesity with body mass index of 60.0-69.9 in adult (HCC) from Last 3 Months Immunizations Immunization Administration Dates Next Due Covid-19, mRNA (Pfizer Comir kailyn) Seasonal, 30 mcg/0.3 mL (12+) 06/16/2024,08/10/2023 HPV9 (Gardasil 9) 03/22/2024,10/01/2023,06/28/20 23 Hep B (adult) 02/22/1997,1996,1996 Hib (HbOC) 12/19/1997, 7,1996,1995 IPV 12/02/2000 Influenza (SEASONAL) - 07/01/2016 Influenza,MDCK,trivalent,PF (Flucelvax) 06/16/2024 Influenza,injectable,MDCK, P rsrv Fr,Quad 08/10/2023 Influenza,injectable,quad,Prsrv Fr 07/18/2019 MMR 12/02/2000,05/29/1997 OPV, Trivalent (Admin Before 11/30/2015) 1996,1996,1996 PCV-20 02/25/2023 Tdap 10/06/2022 Varicella 05/29/1997 Family History Medical History Relation Name Comments Diabetes Father triple bypass Father Asthma Half sister 1 IBS Half sister 2 Asthma Mother Psych/Mental Health Mother Relation Name Status Comments Father Alive Half brother 1 Alive Half brother 2 Alive Half sister 1 Alive Half sister 2 Alive Half sister 3 Alive Mother Alive Social History Tobacco Use Types Packs/Day Years [...] / family Patient decli agustin 10/11/2024 Attend evangelical services Patient declined [...] any clubs o r organizations such as adventism groups, unions, athletic groups, or school groups? [...] Something else 05/22/2024 8: 17 PM EDT Last Filed Vital Signs Vital Sign Reading Time Taken Comments Blood Pressure 146/102 02/27/2025 9:06 AM EDT Pulse 98 01/31/2025 11:26 AM EDT Temperature 36.6 C (97.9 F) 01/31/2025 11:26 AM EDT Respiratory Rate 16 01/31/2025 11:26 AM EDT Oxygen Saturation 100% 01/31/2025 11:26 AM EDT Inhaled Oxygen Concentration - - Weight 218 kg (481 lb) 02/27/2025 9:06 AM EDT Height 175.3 cm (5' 9 ) 09/02/2024 9:13 AM EST Body Mass Index 71.03 09/02/2024 9:13 AM EST Plan of Treatment Upcoming Encounters Date Type Department Care Team (Latest Contact Info) Description 05/30/2025 11:30 AM EDT Office Visit [facility] [address] [place] [phone] Cristine Villegas PA [address] [facility] [address] [place] [address] Return in about 3 months (around 05/30/2025) for GYR/annual exam. 06/20/2025 3:00 PM EDT Office Visit [facility] Neurology [address] [facility] 230 [place] [address] Adelaida Goddard PA [address] [facility] 230 [place] [address] 3 mos headaches 06/26/2025 3:00 PM EDT Office Visit [address] [phone] Kareen Chandra COMMUNITY MENTAL HEALTH WORKER [address] [facility] 230 [place] [address] Botox/no pa needed/84 days/12 wks/consent good/med needs to be listed in epic/buy/bill 08/15/2025 11:45 AM EST CPE - Comprehensive Physical Exam [facility] [address] [place] [phone] Kamilla Nicolas MD [address] [place] [phone] lpe 08/12/2024 08/21/2025 1:45 PM EST Office Visit [facility] Endocrinology [facility] 1 [facility] [address] [place] [address] Taya Leblanc MD [address] [address] 5-6 months follow up 09/20/2025 4:00 PM EST Office Visit [facility] [address] [place] [id number] Kareen Chandra NP 123 [facility] [address] [place] [address] Botox/no pa needed/84 days/12 wks/consent good/med needs to be listed in epic/buy/bill Health Maintenance Due Date Last Done Comments Hep A (1 of 2 - Risk 2-dose series) 2015 Microalbumin 01/25/2024 01/24/2023 Eye/Retina Exam 03/11/2025 03/11/2024, 07/01, 07/17/2023, Additional history exists Influenza (#1) 2025 06/16/2024, 07/31, 07/18/2019, Additional history exists HA1C 06/13/2025 12/12/2024, 11/2023, 10/20/2023, Additional history exists Pap Smear 10/29/2025 10/29/2022, 10/29/2021 LDL Cholesterol 12/12/2025 12/12/2024, 080 03/2024, 01/24/2023, Additional history exists GFR 02/27/2026 02/27/2025, 12/2024, 12/12/2024, Additional history exists DTaP/Tdap/Td (2 - Td or Tdap) 10/06/2032 10/06/2022 Zoster (Shingrix) (1 of 2) 2046 05/29/1997 Hep B Completed 02/22/1997, 08/1995, 1996 Hib Completed 12/19/1997, 11/1996, 1996, Additional history exists Pneumococcal Completed 02/25/2023 Tonometry Discontinued 03/11/2024, 07/01, 02/25/2023, Additional history exists HPV Vaccine Completed 03/22/2024, 08/2023, 02/25/2023 EKG Discontinued 03/25/2024, 03/01, 07/11/2023, Additional history exists COVID-19 Vaccine Completed 06/16/2024, 07/2023, 04/29/2021, Additional history exists Physical Discontinued 08/12/2024, 07/31, 10/29/2021, Additional history exists Chest Imaging Discontinued 10/09/2024, 05/31, 12/03/2023, Additional history exists Hepatitis C Screening Completed 02/27/2025, 024 Meningococcal ACWY Aged Out No longer eligible based on patient's age to complete this topic Goals Goal Patient Goal Type Associated Problems [...] at . Any insurance accepted. Quit smoking resources-http://RouterShare.org HEMOGLOBIN A1C % < 7 Result Component [...] fasting blood sugar below 120 is ideal. Procedures Procedure Name Priority Date/Time Associated Diagnosis Comments US BREAST LIMITED, DIAGNOSTIC - LEFT Routine 04/06/2025 2:57 PM EDT Breast pain CHEMODENERVATION OF MUSCLE(S) INNERVATED BY FACIAL/TRIGEM/CERVICAL SPINAL/ACCESSORY NERVES, BILAT Routine 03/27/2025 3:59 PM EDT Migraine without aura and without status migrainosus, not intractable CULTURE, URINE, ROUTINE Routine 02/28/20 10:07 AM EDT Screening examination for sexually transmitted disease VAGINITIS PLUS, TMA Routine 02/27/2025 10:07 AM EDT Vaginal odor Vaginal discharge Screening examination for sexually transmitted disease SYPHILIS (FTA) ANTIBODY CASCADING REFLEX TO RPR/TITER (*PREFERRED SCREEN*) Routine 02/27/2025 9:42 AM EDT Screening examination for sexually transmitted disease HIV 1/2 ANTIGEN/ANTIBODY, FOURTH GENERATION W/RFL Routine 02/27/2025 9:42 AM EDT Screening examination for sexually transmitted disease HEPATITIS B SURFACE ANTIGEN Routine 02/27/2025 9:42 AM EDT Screening examination for sexually transmitted disease HEPATITIS C AB WITH REFLEX TO RNA PCR, SERUM Routine 02/27/2025 9:42 AM EDT Screening examination for sexually transmitted disease BASIC METABOLIC PANEL WITH (GFR) Routine 02/27/2025 9:42 AM EDT PCOS (polycystic ovarian syndrome) US ABOM COMPL 02/27/2025 US ABOM COMPL 02/27/2025 XRAY ANKLE COMPLETE MIN 3 VWS - LEFT Routine 02/15/2025 11:18 AM EDT Acute left ankle pain HEMOGLOBIN A1C Routine 12/12/2024 3:28 PM EDT Type 2 diabetes mellitus with hyperglycemia, without long-term current use of insulin (HCC) LIPID PANEL WITH REFLEX TO DIRECT LDL Routine 12/12/2024 3:28 PM EDT Type 2 diabetes mellitus with hyperglycemia, without long-term current use of insulin (HCC) XRAY CHEST, 2 VIEWS, PA & LATERAL FC STAT (All results called to provider) 10/09/2024 12:32 PM EST Fever, unspecified fever cause Acute cough EKG-TO BE READ & BILLED BY ADULT OR PEDIATRIC CARDIOLOGY Routine 03/22/2024 10:13 AM EDT Palpitations COMPREHENSIVE EYE EXAM 03/11/2024 ALBUMIN (MICROALBUMIN), RANDOM URINE, WITH CREATININE Routine 01/24/2023 11:50 AM EDT Prediabetes from Last 3 Months or Most Recently Relevant to Health Maintenance Results * US BREAST LIMITED, DIAGNOSTIC - LEFT (04/06/2025 2:57 PM EDT) Anatomical Region Laterality Modality BREAST Left Ultrasound Impressions 04/06/2025 2:59 PM EDT : No sonographic findings to account for left axillary and left breast pain. Clinical follow-up is recommended. BI-RADS: - 2 - Benign (left) RECOMMENDATION: - Routine Screening Mammogram at Age 40. Clinical follow-up of symptoms Narrative 04/06/2025 2:59 PM EDT Name: November Neeta Exam Date: 04/06/25 [facility]ound [address] [place], [place] [address] EXAMINATION: FOCUSED Left BREAST ULTRASOUND HISTORY: 29-year-old presents for evaluation of left breast and axillary pain TECHNIQUE: High-resolution real-time and color doppler scanning were performed targeting area of pain left axilla and 1-3 o'clock left breast. COMPARISON: None FINDINGS: No cystic or solid mass identified. No adenopathy. Morphologically normal level 1 axillary lymph nodes are noted. us Kamilla Nicolas MD [facility] US ORDERABLES Final Result * (ABNORMAL) VAGINITIS PLUS, TMA (BV, ERICA, TRICH, GC/CHLAMYDIA) (02/27/2025 10:07 AM EDT) Bacterial Vaginosis (BV), TMA POSITIVE(A) NEGATIVE [facility] Erica sp rRNA (Vag) NOT DETECTED NOT DETECTED [facility] ERICA GLABRATA NOT DETECTED NOT DETECTED [facility] Comment: Erica species C. albicans, C. tropicalis, C. parapsilosis, and/or C. dubliniensis can be detected, but not differentiated, in the Erica spp. result. Trichomonas vaginalis rRNA NOT DETECTED NOT DETECTED [facility] Chlamydia trachomatis rRNA NOT DETECTED NOT DETECTED [facility] Neisseria Gonorrhoeae rRNA NOT DETECTED NOT DETECTED [facility] Comment: For additional information, please refer to https://education.Axiom Education/faq/GIY662 (This link is being provided for information/ educational purposes only.) 02/27/2025 10:0 7 AM EDT 02/27/2025 10:28 PM EDT Narrative Resulting Agency Comment [id number] us [facility] Final Result Performing Organization Address [facility] Co de Phone Number [facility] [address] [place] [address] * CULTURE, URINE, ROUTINE (02/27/2025 10:07 AM EDT) Bacteria culture (Urine) SEE NOTE [facility] Comment: CULTURE, URINE, ROUTINE Micro Number: [id number] Test Status: Final Specimen Source: Urine Specimen Quality: Adequate Result: Less than 10,000 CFU/mL of single Gram positive organism isolated. No further testing will be performed. If clinically indicated, recollection using a method to minimize contamination, with prompt transfer to Urine Culture Transport Tube, is recommended. 02/27/2025 10:0 7 AM EDT 02/27/2025 7:42 PM EDT Narrative Resulting Agency Comment [id number] [facility] Final Result Performing Organization Address [facility] de Phone Number [facility] [address] [place] [address] * HIV 1/2 ANTIGEN/ANTIBODY, FOURTH GENERATION W/RFL (02/27/2025 9:42 AM EDT) HIV 1+2 Ab+HIV1 p24 Ag SEE NOTE [facility] Comment: HIV Negative HIV-1 antigen and HIV-1/HIV-2 antibodies were not detected. There is no laboratory evidence of HIV infection. HIV 1+2 Ab+HIV1 p24 Ag NON-REACT JESUS NON-REACT JESUS [facility] 02/27/2025 9:42 AM EDT 02/28/2025 2:37 AM EDT Narrative Resulting Agency Comment [id number] us [facility] Final Result Performing Organization Address [facility] de Phone Number [facility] [address] [place] [address] * SYPHILIS (FTA) ANTIBODY CASCADING REFLEX TO RPR/TITER (*PREFERRED SCREEN*) (02/27/2025 9:42 AM EDT) Treponema pallidum Ab NEGATIVE NEGATIVE [facility] Comment: No antibodies to T. pallidum (the agent causing syphilis) were detected in the specimen. This result, however, does not exclude very recent T. pallidum infection; testing of a second specimen, collected 2-4 weeks after this specimen, is recommended if the index of suspicion for recent infection is high. 02/27/2025 9:42 AM EDT 02/28/2025 2:37 AM EDT Narrative Resulting Agency Comment [id number] [facility] Final Result Performing Organization Address [facility] de Phone Number [facility] [address] [place] [address] * HEPATITIS B SURFACE ANTIGEN (02/27/2025 9:42 AM EDT) Pathologist [facility] Hepatitis B virus surface Ag NON-REACT JESUS NON-REACT JESUS [facility] Comment: For additional information, please refer to http://Rainforest.Axiom Education/faq/BYM845 (This link is being provided for informational/ educational purposes only.) 02/27/2025 9:42 AM EDT 02/28/2025 2:37 AM EDT Narrative Resulting Agency Comment [id number] [facility] Final Result Performing Organization Address [facility] de Phone Number [facility] [address] [place] [address] * HEPATITIS C AB WITH REFLEX TO RNA PCR, SERUM (02/27/2025 9:42 AM EDT) Pathologist [facility] Hepatitis C virus Ab NON-REACT JESUS NON-REACT JESUS [facility] Comment: HCV antibody was non-reactive. There is no laboratory evidence of HCV infection. In most cases, no further action is required. However, if recent HCV exposure is suspected, a test for HCV RNA (test code 82392) is suggested. For additional information please refer to http://education.Twenga.Loved.la/faq/TDM35u6 (This link is being provided for informational/ educational purposes only.) 02/27/2025 9:42 AM EDT 02/28/2025 2:37 AM EDT Narrative Resulting Agency Comment [id number] us [facility] Final Result [facility] [address] [place] [address] * (ABNORMAL) BASIC METABOLIC PANEL WITH (GFR) [...] needs for GFR calculation. Resulting Agency Comment [id number] us Taya Leblanc MD LABORATORY Final Resu lt [facility] [address] [facility] [address] * US ABOM COMPL (02/27/2025) Only the most recent of2 resultswithin the time period is included. 02/27/2025 Narrative 02/27/2025 Ordered by an unspecified provider. us Unknown Provider GENERAL IMAGING- OTHER Final Re sult * XRAY ANKLE COMPLETE MIN 3 VWS - LEFT (02/15/2025 11:18 AM EDT) Anatomical Region Laterality Modality LOWER EXTREMITY Computed Radiogr aphy Narrative 02/15/2025 5:14 PM EDT Patient History: Patient with recent ankle sprain that has been reinjured since last visit. CONTRAST: 3 views left ankle Comparison: 01/31/2025 Findings: No fractures or dislocations. No joint effusion. No significant arthritic change. Stable heel spurs. No radiopaque foreign body. Impression: 1. No fracture or dislocation. Procedure Note Ian Castle MD - 02/15/2025 Patient History: Patient with recent ankle sprain that has been reinjuredsince last visit. CONTRAST: 3 views left ankle Comparison: 01/31/2025 Findings: No fractures or dislocations. No joint effusion. No significant arthritic change. Stable heel spurs. No radiopaque foreignbody. Impression: 1. No fracture or dislocation. us Davis Girjalva DPM IMG XRAY NO CONTRAST ORDER GABY Final Result * (ABNORMAL) HEMOGLOBIN A1C (12/12/2024 3:28 PM [...] 12:32 AM EDT Narrative Resulting Agency Comment [id number] us Kamilla Nicolas MD LABORATORY Final Result [facility] [address] [place] [address] * (ABNORMAL) LIPID PANEL WITH REFLEX TO [...] LDL-C. [place] SS et al. IRVING. 2013;310(19): 1309-6437 (http://education.Vtap.Loved.la/faq/FXY764) CHOL/HDL Ratio 2.8 <5.0 (calc) [facility] Cholesterol Non-HDL 95 <130 mg/dL (calc) [facility] Comment: For patients with diabetes plus 1 major ASCVD risk factor, treating to a non-HDL-C goal of <100 mg/dL (LDL-C of <70 mg/dL) is considered a therapeutic option. 12/12/2024 3:28 PM EDT 12/13/2024 12:32 AM EDT Narrative Resulting Agency Comment [id number] us Kamilla Nicolas MD LABORATORY Final Result [facility] [address] [facility] [place] [address] * XRAY CHEST, 2 VIEWS, PA & LATERAL (10/09/2024 12:32 PM EST) Anatomical Region Laterality Modality CHEST Computed Radiogr aphy Narrative 10/09/2024 1:25 PM EST Patient History: cough, fever, SOB X2 days CONTRAST: 2 view chest x-ray Comparison: None Findings: No consolidation or effusion. Heart size is normal. No acute fracture. IMPRESSION: 1. No acute findings. Procedure Note David Jimenez MD - 10/09/2024 Patient History: cough, fever, SOB X2 days CONTRAST: 2 view chest x-ray Comparison: None Findings: No consolidation or effusion. Heart size is normal. No acute fracture. IMPRESSION: 1. No acute findings. us Erna Lakhani COMMUNITY MENT[employer] HE[employer] WORKER IMG XRAY NO CONTRAST ORDERABL ES Final Result * EKG - READ & BILLED BY CARDIOLOGY (03/22/2024 10:13 AM EDT) VENTRICULAR RATE 88 BPM MUS E EKG SYSTEM ATRIAL RATE 88 BPM MUSE EKG SYSTEM P-R INTERVAL 148 ms MUSE EK G SYSTEM QRS DURATION 88 ms MUSE EK G SYSTEM QT 362 ms MUSE EKG SYSTEM QTC 438 ms MUSE EKG SYSTEM P AXIS 50 degrees MUSE EKG SYSTEM R AXIS 28 degrees MUSE EKG SYSTEM T AXIS 24 degrees MUSE EKG SYSTEM EKG INTERPRETATION Normal sinus rhythm Normal ECG when compared with ecg on 07/11/2023 no significant change Confirmed by ELIZABETH BHAGAT ([id number]), market editor MATT HERNANDEZ ([id number]) on 03/25/2024 7:17:39 AM MUSE EKG SYSTEM 03/22/2024 10:1 3 AM EDT 03/25/2024 7:17 AM EDT us Emely Farmer NP CARDIOVASCULAR-WITH INBSKT RTG Final Result MUSE EKG SYSTEM * COMPREHENSIVE EYE EXAM (03/11/2024) us Christo Gonzalez MINOR PROCEDURE Final Result * ALBUMIN (MICROALBUMIN), RANDOM URINE, WITH CREATININE [...] 9:43 PM EDT Narrative Resulting Agency Comment [id number] us Kamilla Nicolas MD LABORATORY Final Result [facility] [address] [place] [address] from Last 3 Months or Most Recently Relevant to Health Maintenance Insurance [address] [employer]ULT [employer]EM[employer] Care Teams Load Tester Relationship Specialty Start Date End Date Kamilla Nicolas MD [address] [place] [phone] PCP - General Internal Medicine 01/13/23 Emely Farmer NP [address] [place] [phone] PCP - Backup PCP 10/07/24 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
[2025-05-19 00:34] VITALS: BP 124/93; PULSE 96; RESP 21; TEMP 36.8; O2SAT 96
[2025-05-19 02:07] VITALS: BP 124/84; PULSE 76; RESP 21; TEMP 36.8; O2SAT 96
== END 2025-05-19 02:15 | disposition home or self-care (01) ==
PROVIDERS: Emergency Provider Student in an Organized Health Care Education/Training Program
DX: G43.909 Migraine, unspecified, not intractable, without status migrainosus (principal); E66.01 Morbid (severe) obesity due to excess calories; Z68.45 Body mass index [BMI] 70 or greater, adult; F31.9 Bipolar disorder, unspecified; Z79.899 Other long term (current) drug therapy
CPT/HCPCS: 96361; 96374; 96375; 99284; 99285; J1200; J1790; J1885